=== PATIENT | female | born 1950 | race Caucasian/White ===

== ENCOUNTER 2016-06-23 23:32 | Emergency (ER) | payer OTHER ==
[~2016-06-23] VITALS: Ht 152.4 cm; Wt 108.9 kg
[~2016-06-23 23:32] MED LIST: /AMLO25TA PO; ASPI325T PO; CIPR500T89 PO; CLOP75TA2 PO; CORE25TA PO; CRES20TA PO; CRES40TA PO; FLAG500T PO; INSULANT SC; JANU25TA PO; LISIPOW PO; NIASPAN ER PO; NIASPAN PO; TYLE650T30 PO
[2016-06-23] MEDS ORDERED: INSUH10VL SC (23:47)
[2016-06-24] MEDS ORDERED: GI COCKTAIL 50ML BTL(HYOSCYAMINE/MAALOX/LIDOCAINE VISCOUS)(1:3:1) PO ONE
[2016-06-24] MEDS ORDERED: ASPIRIN 325 MG TAB PO ONE (00:30)
[2016-06-24 01:17] LABS: BASO % 0.5 % (0.0-1.0); EOS # 0.1 K/mm3 (0.0-0.50); EOS % 0.7 % (0.0-3.0); LARGE UNSTAINED CELL # 0.1 K/mm3 (0.0-0.4); LARGE UNSTAINED CELL % 1.2 % (0.0-4.0); LYMPH # 1.4 K/mm3 (1.5-4.5); LYMPH % 12.3 % (24.0-44.0); MEAN CORPUSCULAR HEMOGLOBIN 31.8 pg (27.0-33.0); MEAN CORPUSCULAR VOLUME 96.3 fl (80.0-96.0); MONO # 0.3 K/mm3 (0.0-0.8); MONO % 2.5 % (0.0-5.0); NEUTROPHILS # 9.6 K/mm3 (1.8-7.7); NEUTROPHILS % 82.8 % (36.0-66.0); PLATELET COUNT, AUTOMATED 232 k/mm3 (150-450); RED CELL DISTRIBUTION WIDTH 13.2 % (11.5-14.5); WHITE BLOOD COUNT 11.6 K/mm3 (4.0-10.0)
[2016-06-24 01:55] LABS: ALBUMIN 3.7 GM/DL (3.2-5.2); BILIRUBIN,TOTAL 0.7 MG/DL (0.2-1.0); CALCIUM LEVEL 8.9 MG/DL (8.8-10.2); CREATININE FOR GFR 1.13 MG/DL (0.55-1.02); GLOMERULAR FILTRATION RATE 51.8 (>45); POTASSIUM SERUM 4.9 MEQ/L (3.5-5.1); TOTAL PROTEIN 7.4 GM/DL (6.4-8.2)
[2016-06-24 01:59] LABS: BILIRUBIN,DIRECT 0.2 MG/DL (0.0-0.2)
[2016-06-24] MEDS ORDERED: HEPARIN DRIP 25,000 UNITS in APPROPRIATE DILUENT 1 EA IV SCH (02:01)
[2016-06-24] MEDS ORDERED: HumuLIN R (REGULAR) INSULIN (NovoLIN R) **100U/ML** PER UNIT IV ONE (02:15)
[2016-06-24] MEDS ORDERED: HEPARIN SOD (PORCINE) 5000 UNITS/ML VIAL IV ONE (02:15)
[2016-06-24 02:18] LABS: INR 0.88
[2016-06-24] MEDS ORDERED: hydrALAZINE INJ 20 MG/ML VIAL As Ordered ONE (03:07)
[2016-06-24 03:09] VITALS: BP 212/89
[2016-06-24 03:14] VITALS: BP 219/89
[2016-06-24] MEDS ORDERED: hydrALAZINE INJ 20 MG/ML VIAL IV ONE (03:15)
--- NOTE | 2016-06-24 03:27 | REP ---
Clinical: Chest and abdominal pain . Comparison: None . Findings: The mediastinum and cardiac silhouette are stable and within normal limits for portable technique. The lung ro are clear without acute consolidation, effusion, or pneumothorax. Few scattered calcified hilar lymph nodes are suggested likely reflecting prior granulomatous disease. Skeletal structures are intact. Impression: No acute cardiopulmonary process appreciated. Signed by Rome Doss MD 06/24/2016 03:19 A
--- NOTE | 2016-06-24 20:38 | ECGEPIP ---
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
== END 2016-06-24 03:28 | disposition short-term general hospital (02) ==
LOC: EDBD 23:32 → M ED 06-24 01:36
DX: I21.4 Non-ST elevation (NSTEMI) myocardial infarction (principal); E11.65 Type 2 diabetes mellitus with hyperglycemia; I10 Essential (primary) hypertension; Z95.5 Presence of coronary angioplasty implant and graft; Z95.820 Peripheral vascular angioplasty status with implants and grafts; Z79.82 Long term (current) use of aspirin; Z79.4 Long term (current) use of insulin; Z79.899 Other long term (current) drug therapy; Z88.0 Allergy status to penicillin

== ENCOUNTER 2016-06-30 13:23 | Emergency (ER) | payer OTHER ==
[~2016-06-30 13:23] MED LIST changes: +INSUH10VL SC
[2016-06-30 15:54] LABS: BASO # 0.1 K/mm3 (0.0-0.2); BASO % 0.6 % (0.0-1.0); EOS # 0.5 K/mm3 (0.0-0.50); LARGE UNSTAINED CELL # 0.3 K/mm3 (0.0-0.4); LARGE UNSTAINED CELL % 2.1 % (0.0-4.0); LYMPH # 3.3 K/mm3 (1.5-4.5); LYMPH % 24.9 % (24.0-44.0); MEAN CORPUSCULAR HEMOGLOBIN 32.8 pg (27.0-33.0); MEAN CORPUSCULAR HGB CONC 34.5 g/dl (32.0-36.5); MEAN CORPUSCULAR VOLUME 95.3 fl (80.0-96.0); MONO # 0.7 K/mm3 (0.0-0.8); NEUTROPHILS # 8.5 K/mm3 (1.8-7.7); NEUTROPHILS % 63.4 % (36.0-66.0); PLATELET COUNT, AUTOMATED 222 k/mm3 (150-450); WHITE BLOOD COUNT 13.4 K/mm3 (4.0-10.0)
[2016-06-30] MEDS ORDERED: DEXTROSE 50% 50 ML SYRINGE IV STA (16:11)
[2016-06-30] MEDS ORDERED: DEXTROSE 50% 50 ML SYRINGE As Ordered ONE (16:13)
[2016-06-30 16:20] LABS: CALCIUM LEVEL 8.8 MG/DL (8.8-10.2); CREATININE FOR GFR 1.18 MG/DL (0.55-1.02); GLOMERULAR FILTRATION RATE 49.2 (>45); POTASSIUM SERUM 3.8 MEQ/L (3.5-5.1)
--- NOTE | 2016-06-30 18:20 | REPUSA ---
Clinical history: Congestion. Comparison: None. Findings: The mediastinum and cardiac silhouette are within normal limits. The lungs are clear. No pl eural effusion or pneumothorax is seen. The osseous structures and soft tissues are unremarkable. Impression: No acute disease.
[2016-06-30] MEDS ORDERED: HEPARIN DRIP 25,000 UNITS in APPROPRIATE DILUENT 1 EA IV SCH (19:11)
[2016-06-30] MEDS ORDERED: HEPARIN SOD (PORCINE) 5000 UNITS/ML VIAL IV ONE (19:15)
[2016-06-30 21:24] VITALS: BP 174/82
--- NOTE | 2016-07-01 06:17 | ECGEPIP ---
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
== END 2016-06-30 21:33 | disposition short-term general hospital (02) ==
LOC: EDBD 13:23 → M ED 14:38
DX: I21.3 ST elevation (STEMI) myocardial infarction of unspecified site (principal); I20.0 Unstable angina; I25.10 Atherosclerotic heart disease of native coronary artery without angina pectoris; E11.9 Type 2 diabetes mellitus without complications; I10 Essential (primary) hypertension; N18.9 Chronic kidney disease, unspecified; Z95.5 Presence of coronary angioplasty implant and graft; F17.200 Nicotine dependence, unspecified, uncomplicated; Z79.4 Long term (current) use of insulin; Z79.82 Long term (current) use of aspirin; Z79.899 Other long term (current) drug therapy; Z88.0 Allergy status to penicillin

== ENCOUNTER → 2017-12-05 | Outpatient (CLI) | payer MEDICARE, MEDICAID | LOC: M PLARAD 07:37 | DX: M54.5 Low back pain (principal) ==

== ENCOUNTER → 2017-12-29 | Outpatient (CLI) | payer MEDICARE | LOC: M RAD 08:49 | DX: M51.26 Other intervertebral disc displacement, lumbar region (principal); M48.061 Spinal stenosis, lumbar region without neurogenic claudication | CPT/HCPCS: 72131 ==

== ENCOUNTER → 2019-03-01 | Outpatient (CLI) | payer MEDICARE ==
[~2019-03-01] MED LIST changes: -/AMLO25TA PO; +NORV2TAB PO
--- NOTE | 2019-03-01 09:36 | REP ---
Clinical: Chronic medical renal disease stage 4. Technique: Akbar scale evaluation of the kidneys using curved array transducer. Findings: The kidneys are essentially normal in contour size and echogenicity and reniform shape without hydronephrosis, nephrolithiasis, significant cystic or renal mass lesion. Right kidney measures 8.8 x 4.2 x 4.2 cm with 6 mm lower pole cyst. Left kidney measures 10.1 x 3.6 x 4.2 cm. Bladder is unremarkable and bilateral ureteral jets are identified. Impression: Essentially normal renal ultrasound. Electronically Signed by Rome Doss MD 03/01/2019 09:27 A
== END ==
LOC: M RAD 08:46
PROVIDERS: ATTEND Physician Assistant
DX: N18.4 Chronic kidney disease, stage 4 (severe) (principal)

== ENCOUNTER → 2019-03-09 | Outpatient (REF) | payer MEDICARE ==
[2019-03-09 18:39] LABS: URINE TOTAL PROTEIN 129.2 MG/DL (0-12)
[2019-03-09 19:18] LABS: ALBUMIN 3.4 GM/DL (3.2-5.2); BLOOD UREA NITROGEN 29 MG/DL (7-18); CARBON DIOXIDE LEVEL 26 MEQ/L (21-32); CHLORIDE LEVEL 98 MEQ/L (98-107); COMPLEMENT C3 138 MG/DL (90-180); COMPLEMENT C4 26 MG/DL (10-40); CREATININE FOR GFR 1.86 MG/DL (0.55-1.30); GLOMERULAR FILTRATION RATE 28.9 (>45); GLUCOSE, FASTING 558 MG/DL (70-100); MAGNESIUM LEVEL 2.1 MG/DL (1.8-2.4); PHOSPHORUS LEVEL 3.3 MG/DL (2.5-4.9); POTASSIUM SERUM 4.5 MEQ/L (3.5-5.1); SODIUM LEVEL 132 MEQ/L (136-145); TOTAL PROTEIN 6.9 GM/DL (6.4-8.2); URIC ACID 5.6 MG/DL (2.6-6.0)
[2019-03-10 13:59] LABS: HEPATITIS B SURFACE ANTIBODY NEGATIVE (POSITIVE)
[2019-03-10 14:10] LABS: HEPATITIS B SURFACE ANTIGEN NEGATIVE (NEGATIVE)
[2019-03-10 14:38] LABS: HEPATITIS B CORE ANTIBODY IGM NEGATIVE (NEGATIVE); HEPATITIS C VIRUS ABY INDEX < 0.0 INDEX (<0.8)
[2019-03-11 10:23] LABS: ALBUMIN 3.91 GM/DL (3.29-5.55); ALBUMIN % 56.6 % (55.8-66.1); ALPHA-1-GLOBULINS 0.28 GM/DL (0.17-0.41); ALPHA-2-GLOBULINS % 11.6 % (7.1-11.8); BETA-1-GLOBULINS 0.43 GM/DL (0.28-0.60); BETA-1-GLOBULINS % 6.3 % (4.7-7.2); BETA-2-GLOBULINS 0.38 GM/DL (0.19-0.55); BETA-2-GLOBULINS % 5.5 % (3.2-6.5)
[2019-03-11 11:37] LABS: UPEP INTERPRETATION NO M-SPIKE NOTED; URINE VOLUME RANDOM ML
[2019-03-13 00:08] LABS: ANCA-ATYPICAL <1:20 titer (Neg:<1:20); ANTI DS-DNA AB Negative (Negative); ANTINUCLEAR ANTIBODIES DIRECT Negative (Negative); CYTOPLASMIC NEUTROP AB ANCA-C <1:20 titer (Neg:<1:20); FREE KAPPA LIGHT CHAINS SERUM 64.5 mg/L (3.3-19.4); FREE LAMBDA LIGHT CHAINS SERUM 51.8 mg/L (5.7-26.3); KAPPA/LAMBDA RATIO SERUM 1.25 (0.26-1.65); PERINUCLEAR AB ANCA-P <1:20 titer (Neg:<1:20)
== END ==
LOC: M LAB REF 17:20
PROVIDERS: ATTEND Internal Medicine Nephrology
DX: N18.3 Chronic kidney disease, stage 3 (moderate) (principal); E11.22 Type 2 diabetes mellitus with diabetic chronic kidney disease; I12.9 Hypertensive chronic kidney disease with stage 1 through stage 4 chronic kidney disease, or unspecified chronic kidney disease; R80.9 Proteinuria, unspecified

== ENCOUNTER 2019-03-21 06:39 | Inpatient (IN) | payer MEDICAID, MEDICARE ==
[~2019-03-21] VITALS: Ht 160 cm; Wt 92.2 kg
--- NOTE | 2019-03-21 08:11 | REP ---
Right knee series: Five views. History: Trauma. Findings: Five views of the right knee demonstrate diffuse osteopenia. There is an arterial vascular stent in the distribution of the superficial femoral artery. Vascular calcification is seen in the popliteal and proximal calf soft tissues. There is no evidence of fracture or subluxation. There is no sunrise view obtained. Impression: Diffuse osteopenia. Vascular calcification and arterial stent in place in the distal thigh. No acute bony abnormalities seen. Electronically Signed by Phil Smith MD 03/21/2019 08:03 A
--- NOTE | 2019-03-21 08:12 | REP ---
Pelvis right hip: Three views. History: Trauma. Findings: AP view of the pelvis shows an intact bony pelvic ring. There is advanced osteoarthritis of the right hip with joint space narrowing and subcortical cyst formation. Spurring is seen. There is no evidence of pelvic or right hip fracture. There is an arterial stent in the distribution of the mid and distal superficial femoral artery on the right and the proximal superficial femoral artery on the left. No sacral or pelvic fracture is seen. Impression: No fracture noted. Electronically Signed by Phil Smith MD 03/21/2019 08:04 A
--- NOTE | 2019-03-21 08:16 | REPVR ---
PROCEDURE INFORMATION: Exam: CT Cervical Spine Without Contrast Exam date and time: 03/21/2019 7:41 AM Age: 68 years old Clinical indication: Injury or trauma; Fall; Initial encounter; Blunt trauma TECHNIQUE: Imaging protocol: Computed tomography images of the cervical spine without contrast. Radiation optimization: All CT scans at this facility use at least one of these dose optimization techniques: automated exposure control; mA and/or kV adjustment per patient size (includes targeted exams where dose is matched to clinical indication); or iterative reconstruction. COMPARISON: No relevant prior studies available. FINDINGS: Vertebrae: No acute fracture. Normal alignment. Discs/Spinal canal/Neural foramina: Disc bulges at C2/C3 and C3/C4 causing mild indentation on thecal sac. Soft tissues: Multiple surgical clips adjacent to the left common carotid artery and left internal carotid artery. Lungs: Lung apices are normal. Thyroid gland: 10 mm nodule in right lobe of the thyroid gland, further evaluation with ultrasound is recommended. IMPRESSION: No acute findings. Electronically signed by: Abigail Liu On 03/21/2019 08:15:46 AM
--- NOTE | 2019-03-21 08:22 | REPVR ---
PROCEDURE INFORMATION: Exam: CT Head Without Contrast Exam date and time: 03/21/2019 7:41 AM Age: 68 years old Clinical indication: Injury or trauma; Fall; Initial encounter; Blunt trauma (contusions or hematomas); Consciousness not specified TECHNIQUE: Imaging protocol: Computed tomography of the head without contrast. Radiation optimization: All CT scans at this facility use at least one of these dose optimization techniques: automated exposure control; mA and/or kV adjustment per patient size (includes targeted exams where dose is matched to clinical indication); or iterative reconstruction. COMPARISON: No relevant prior studies available. FINDINGS: Brain: There is no acute intracranial abnormality. Mild prominence of ventricles and sulci representing volume loss. Moderate small vessel ischemic changes are seen. There is no mass, midline shift, or mass effect. Akbar-white matter differentiation is preserved. There is no evidence of hemorrhage. There is no extra-axial fluid collection. Basal cisterns are patent. Ventricles: See Brain Finding. Bones/joints: Unremarkable. No acute fracture. Sinuses: Visualized sinuses are unremarkable. No fluid levels. Mastoid air cells: Visualized mastoid air cells are well aerated. Soft tissues: Mild left lateral inferior frontal and periorbital soft tissue swelling. IMPRESSION: 1. Mild volume loss and moderate small vessel ischemic changes. 2. No acute intracranial abnormality. Electronically signed by: Abigail Liu On 03/21/2019 08:22:06 AM
--- NOTE | 2019-03-21 08:24 | REPVR ---
PROCEDURE INFORMATION: Exam: CT Maxillofacial Without Contrast Exam date and time: 03/21/2019 7:41 AM Age: 68 years old Clinical indication: Injury or trauma; Fall; Initial encounter; Blunt trauma (contusions or hematomas); Cheek bone; Not specified TECHNIQUE: Imaging protocol: Computed tomography images of the face without contrast. Radiation optimization: All CT scans at this facility use at least one of these dose optimization techniques: automated exposure control; mA and/or kV adjustment per patient size (includes targeted exams where dose is matched to clinical indication); or iterative reconstruction. COMPARISON: No relevant prior studies available. FINDINGS: Orbits: Orbits are normal. Globes are unremarkable. Sinuses: Normal. No air-fluid levels. Bones/joints: No acute fracture. Soft tissues: Mild left inferior lateral frontal and periorbital soft tissue swelling. IMPRESSION: No acute fracture or dislocation. Mild left inferior lateral frontal and periorbital soft tissue swelling. Electronically signed by: Abigail Liu On 03/21/2019 08:24:14 AM
[2019-03-21] MEDS ORDERED: ONDANSETRON 4MG/2ML VIAL (J2405) As Ordered ONE (08:28)
[2019-03-21] MEDS ORDERED: MORPHINE 2 MG/ML 1ML VIAL (J2270) As Ordered ONE (08:29)
[2019-03-21] MEDS ORDERED: ONDANSETRON 4MG/2ML VIAL (J2405) IV ONE (08:30)
[2019-03-21] MEDS: MORPHINE 2 MG/ML 1ML VIAL (J2270) IV PRN ×2 (08:38→13:03)
[2019-03-21] MEDS ORDERED: COMMENTS (09:32)
[2019-03-21] MEDS ORDERED: LOSA50TA88 PO (09:32)
[2019-03-21] MEDS ORDERED: EZET10TA21 PO (09:32)
[2019-03-21] MEDS ORDERED: BRIL1TAB PO (09:32)
[2019-03-21] MEDS ORDERED: CARV25TA PO (09:32)
[2019-03-21] MEDS ORDERED: AMLO5TAB6 PO (09:32)
[2019-03-21] MEDS ORDERED: LOSARTAN 50 MG TAB PO ONE ×2 (09:45→10:00)
[2019-03-21] MEDS ORDERED: amLODIPine 5 MG TAB PO ONE ×2 (09:45→10:00)
[2019-03-21] MEDS ORDERED: CARVedilol 12.5 MG TAB PO ONE ×2 (09:45→10:00)
--- NOTE | 2019-03-21 09:45 | REP ---
CT RIGHT HIP WITHOUT CONTRAST: HISTORY: Inability to ambulate after trauma. Comparison is made with today's radiographs. FINDINGS: There is no evidence of fracture of the right iliac bone or ischium. The visualized sacrum appears intact. There is advanced right hip osteoarthropathy with obliteration of the joint space superiorly, extensive subcortical cyst formation and sclerosis on both sides of the joint, and well-established femoral and acetabular osteophytes. There is no evidence of proximal femur fracture. Vascular calcification is noted. No soft tissue mass or hematoma is appreciated. IMPRESSION: Severe right hip osteoarthritis. No traumatic bony abnormality. Electronically Signed by Phil Smith MD 03/21/2019 09:56 A
[2019-03-21] MEDS ORDERED: METOCLOPRAMIDE INJ 10MG/2ML VIAL (J2765) IV ONE (10:00)
[2019-03-21 10:05] LABS: BASO # 0.1 10^3/uL (0.0-0.2); BASO % 0.5 % (0.0-1.0); EOS # 0.1 10^3/uL (0.0-0.5); EOS % 0.9 % (0.0-3.0); HEMATOCRIT 43.8 % (36.0-47.0); HEMOGLOBIN 14.6 g/dl (12.0-15.5); LYMPH % 12.9 % (24.0-44.0); MEAN CORPUSCULAR HEMOGLOBIN 29.7 pg (27.0-33.0); MEAN CORPUSCULAR HGB CONC 33.3 g/dl (32.0-36.5); MONO # 1.1 10^3/uL (0.0-0.8); MONO % 7.5 % (0.0-5.0); NEUTROPHILS # 11.8 10^3/uL (1.5-8.5); NEUTROPHILS % 77.7 % (36.0-66.0); PLATELET COUNT, AUTOMATED 241 10^3/uL (150-450); RED BLOOD COUNT 4.92 10^6/uL (4.00-5.40); WHITE BLOOD COUNT 15.1 10^3/uL (4.0-10.0)
[2019-03-21 10:48] LABS: ALBUMIN 3.6 GM/DL (3.2-5.2); BILIRUBIN,DIRECT 0.2 MG/DL (0.0-0.2); BILIRUBIN,TOTAL 0.6 MG/DL (0.2-1.0); CALCIUM LEVEL 8.9 MG/DL (8.8-10.2); CK-MB VALUE MASS 2.6 NG/ML (<3.6); CREATININE FOR GFR 1.7 MG/DL (0.55-1.30); MB/CK RELATIVE INDEX 1.91 (< OR =4); POTASSIUM SERUM 3.9 MEQ/L (3.5-5.1); THYROID STIMULATING HORMONE 0.725 uIU/ML (0.358-3.740); TOTAL PROTEIN 7.1 GM/DL (6.4-8.2); TROPONIN I 0.05 NG/ML (< 0.10)
--- NOTE | 2019-03-21 10:54 | REP ---
Portable chest x-ray: Single view. History: Altered mental status. Comparison study: June 30, 2016. Findings: The patient is rotated to the right for the current exposure. Monitoring electrodes are seen. Vascular calcifications noted in the aorta. The heart is not felt to be enlarged. No focal infiltrate is seen. Pleural angles are sharp. There are surgical clips in the soft tissues of the neck on the left side. Impression: No acute disease. Patient is rotated to the right. Electronically Signed by Phil Smith MD 03/21/2019 10:46 A
[2019-03-21] MEDS ORDERED: ATOR40TA75 PO (11:06)
[2019-03-21 11:19] LABS: HEMOGLOBIN A1c 13.3 %
[2019-03-21] MEDS ORDERED: LABETALOL HCL 100 MG/20 ML VIAL IV PRN (12:00)
[2019-03-21] MEDS ORDERED: MORPHINE 2 MG/ML 1ML VIAL (J2270) IV PRN ×2 (12:00)
--- NOTE | 2019-03-21 12:07 | HPEPDOC ---
[facility] Medical History & Physical Date of Admission Mar 21, 2019 Date of Service: Mar 21, 2019 History and Physical CHIEF COMPLAINT: Fall HISTORY OF PRESENT ILLNESS: Patient is 68F with PMH CAD s/p stents placement, PVD s/p stents in b/l LE, HTN, HLD, IDDM, L. carotid artery stenosis s/p CEA brought in by EMS after falling at home. Patient lives alone and last seen daughter at home yesterday morning and have been doing fine until 2:30AM when she called her daughter stating that she fell at home. EMS reportedly arrived and got her situated but then she fell again and was brought into the ER. Patient reportedly mentation is not at her baseline however was oriented to person and place but thought the year is 2019. Patient was found to have a large bruise over superiolateral aspect of her L. eyelid. Patient complains of feeling sick to her stomach and nauseous but otherwise does not report any pain, headache, visual changes, fever, chills, neck stiffness or any other complaints. Patient appears comfortable and speak little, most history obtained from daughter and [id number] at bedside. Patient reportedly has a walker, cane and wheelchair but gets around the home hanging onto things and does not use walking devices. PAST MEDICAL HISTORY: Refer to [facility] PAST SURGICAL HISTORY: Cardiac stent placement Bilateral lower extremity stent placement for PVD Left carotid endarterectomy Cholecystectomy Appendectomy Tubal ligation SOCIAL HISTORY: Smokes 1/2ppd. Does not report alcohol or illicit drug use. FAMILY HISTORY: Daughter- HLD Parents - no medical history known ALLERGIES: Please see below. REVIEW OF SYSTEMS: 10 point review of system negative except as stated in HPI HOME MEDICATIONS: Please see below. PHYSICAL EXAMINATION: General: Moderate distress with eyes closed most of the time, hanging onto the vomitus bag Eyes: Normal sclera, EOMI, L. superiorlateral aspect of eyelid bruised HENT: Bruising to L. eyelid Cardiovascular: Normal rate Pulmonary: Clear to auscultation b/l GI: Soft, nontender Skin: Warm and dry Neuro: CN grossly intact. Generalized weakness but moves all extremities. Psych: oriented to person and place, thought year is 2018 LABORATORY DATA: See below. IMAGING: CT head-1. Mild volume loss and moderate small vessel ischemic changes. 2. No acute intracranial abnormality. Maxilofacial CT- No acute fracture or dislocation. Mild left inferior lateral frontal and periorbital soft tissue swelling. Cervical Spine CT-No acute findings. Extremity CT-Severe right hip osteoarthritis. No traumatic bony abnormality. Hip/Pelvis XR-No fracture noted. CXR- No acute disease. Patient is rotated to the right. MICROBIOLOGY: Please see below. ASSESSMENT AND PLAN: 1. Fall - No fracture noted on imaging, soft tissue swelling L. orbit. - No hemorrhage on CT head. - Patient at baseline has gait instability, has walker/cane/wheelchair but does not use at home. - Will require PT/OT. 2. AMS - Does not appear to be much different from likely baseline when patient talks. - Alert and oriented to person, place and wrong year 2018. - WBC 15 but no notable source of infection at this time. - No nuchal rigidity. Negative Brudzinski sign. - Will monitor. Consider repeat CT head if symptoms do not improve or worsens. 3. Nausea - Zofran PRN. No evidence of bleed on CT head. - Monitor and consider repeating imaging at later time if does not improve. 4. DM - BS uncontrolled. Reportedly supposed to use insulin in the past but refuse to because she doesn't like the way it makes her feel. - Start on levemir and ISS with ACHS fs. 5. CAD - resume home meds. - No chest pain, troponin negative. 6. PVD - c/w home meds. 7. HTN - resume home med 8. HLD - c/w atorvastatin. DVT ppx: Lovenox and SCD Code status: Full code Dispo: Pending PT/OT. Vital Signs Vital Signs Date Time Temp Pulse Resp B/P (MAP) Pulse Ox O2 Delivery O2 Flow Rate FiO2 03/21/19 11:31 68 18 179/77 (111) 94 Room Air 03/21/19 09:57 97.5 Laboratory Data Labs 24H Laboratory Tests 2 03/21/19 08:23: Urine Color YELLOW, Urine Appearance CLOUDYH, Urine pH 6.0, Urine Specific [place] 1.015, Urine Protein 2+H, Urine Glucose (UA) 3+H, Urine Ketones NEGATIV E, Urine Blood 1+H, Urine Nitrite NEGATIVE, Urine Bilirubin NEGATIVE, Urine Urobilinogen 0.2, Urine Leukocyte Esterase NEGATIVE, Urine WBC (Auto) 7H, Urine RBC (Auto) 3, Urine Hyaline Casts (Auto) 0, Urine Bacteria (Auto) NEGATIVE, Urine Squamous Epithelial Cells 2, Urine Amorphous Sediment SMALLH, Urine Sperm (Auto) 03/21/19 09:52: Immature Granulocyte % (Auto) 0.5, Neutrophils (%) (Auto) 77.7H, Lymphocytes (%) (Auto) 12.9L, Monocytes (%) (Auto) 7.5H, Eosinophils (%) (Auto) 0.9, Basophils (%) (Auto) 0.5, Neutrophils # (Auto) 11.8H, Lymphocytes # (Auto) 2.0, Monocytes # (Auto) 1.1H, Eosinophils # (Auto) 0.1, Basophils # (Auto) 0.1, Nucleated Red Blood Cells % (auto) 0.0, Anion Gap 6L, Glomerular Filtration Rate 32.0L, Estimated Mean Plasma Glucose 335H, Hemoglobin A1c 13.3, Calcium Level 8.9, Total Bilirubin 0.6, Direct Bilirubin 0.2, Aspartate Amino Transf (AST/SGOT) 24, Alanine Aminotransferase (ALT/SGPT) 38, Alkaline Phosphatase 301H, Ammonia 11, Total Creatine Kinase 136, Creatine Kinase MB 2.6, Creatine Kinase MB Relative Index 1.91, Troponin I 0.05, Total Protein 7.1, Albumin 3.6, Albumin/Globulin Ratio 1.03, Thyroid Stimulating Hormone (TSH) 0.725 03/21/19 09:53: Lactic Acid Level 1.0 03/21/19 10:13: Bedside Glucose (Misc Panel) 440H CBC/BMP Laboratory Tests 03/21/19 09:52 Microbiology Microbiology 03/21/19 Respiratory Virus Panel (PCR) (ROSETTE) - Final, Complete 03/21/19 Blood Culture, Received Pending 03/21/19 Blood Culture, Received Pending Home Medications Scheduled Amlodipine Besylate (Amlodipine Besylate) 5 Mg Tablet, 5 MG PO DAILY Atorvastatin Calcium (Atorvastatin Calcium) 40 Mg Tablet, 40 MG PO DAILY Carvedilol (Carvedilol) 25 Mg Tablet, 25 MG PO BID Ezetimibe (Ezetimibe) 10 Mg Tablet, 10 MG PO DAILY Losartan Potassium (Losartan Potassium) 50 Mg Tablet, 50 MG PO DAILY Ticagrelor (Brilinta) 60 Mg Tablet, 60 MG PO BID Miscellaneous Medications [Comments] MED REC MADE WITH EXTERNAL MED HISTORY Allergies Coded Allergies: Penicillins (Verified Allergy, Unknown, UNKNOWN , 03/21/19) A-FIB/CHADSVASC A-FIB History Current/History of A-Fib/PAF?: No SKIP ROSENBAUM MD Mar 21, 2019 12:07
[2019-03-21] MEDS ORDERED: GLUCOSE 4 GM CHEW TABLET PO PRN (12:15)
[2019-03-21] MEDS ORDERED: GLUCAGON FOR INJ 1 MG VIAL (J1610) SC PRN (12:15)
[2019-03-21] MEDS ORDERED: DEXTROSE 50% 50 ML SYRINGE IV PRN (12:15)
[2019-03-21] MEDS: LEVEMIR (INSULIN DETEMIR) 1 UNITS/0.01ML SC SCH (13:02)
[2019-03-21] MEDS: ENOXAPARIN 40 MG/0.4 ML SYRINGE (J1650) SC SCH (13:14)
[2019-03-21] MEDS: NS 1,000 ML IV SCH ×2 (13:16→23:47)
[2019-03-21 16:17] VITALS: BP 132/97
[2019-03-21] MEDS: HumaLOG INSULIN (NovoLOG) PER UNIT SC SCH ×2 (17:30→21:00)
[2019-03-21] MEDS ORDERED: TICAGRELOR 90 MG TABLET (BRILINTA) PO SCH (21:00)
[2019-03-21] MEDS ORDERED: TICAGRELOR 60 MG PO SCH (21:00)
[2019-03-21] MEDS: ACETAMINOPHEN TAB 650MG DOSE (2X325MG) PO PRN (21:26)
[2019-03-21] MEDS: ONDANSETRON 4MG/2ML VIAL (J2405) IV PRN (21:26)
[2019-03-21] MEDS: CARVedilol 12.5 MG TAB PO SCH (21:30)
[2019-03-22] VITALS: BP 168/72
[2019-03-22 04:00] VITALS: BP 135/61
[2019-03-22 05:02] LABS: HEMATOCRIT 41.9 % (36.0-47.0); HEMOGLOBIN 13.6 g/dl (12.0-15.5); MEAN CORPUSCULAR HEMOGLOBIN 29.9 pg (27.0-33.0); MEAN CORPUSCULAR HGB CONC 32.5 g/dl (32.0-36.5); MEAN CORPUSCULAR VOLUME 92.1 fl (80.0-96.0); PLATELET COUNT, AUTOMATED 233 10^3/uL (150-450); RED BLOOD COUNT 4.55 10^6/uL (4.00-5.40); WHITE BLOOD COUNT 12.7 10^3/uL (4.0-10.0)
[2019-03-22 05:25] LABS: CREATININE FOR GFR 1.88 MG/DL (0.55-1.30)
[2019-03-22 05:26] LABS: CALCIUM LEVEL 8.7 MG/DL (8.8-10.2); GLOMERULAR FILTRATION RATE 28.5 (>45); POTASSIUM SERUM 3.7 MEQ/L (3.5-5.1)
[2019-03-22 08:00] VITALS: BP 156/68
[2019-03-22] MEDS: ENOXAPARIN 40 MG/0.4 ML SYRINGE (J1650) SC SCH (08:29)
[2019-03-22] MEDS: HumaLOG INSULIN (NovoLOG) PER UNIT SC SCH ×4 (08:30→20:28)
[2019-03-22] MEDS: LEVEMIR (INSULIN DETEMIR) 1 UNITS/0.01ML SC SCH (08:30)
[2019-03-22] MEDS: amLODIPine 5 MG TAB PO SCH (08:31)
[2019-03-22] MEDS: CARVedilol 12.5 MG TAB PO SCH ×2 (08:31→20:33)
[2019-03-22] MEDS: ATORVASTATIN 20 MG TAB PO SCH (08:31)
[2019-03-22] MEDS: EZETIMIBE 10 MG TAB (ZETIA) PO SCH (08:31)
[2019-03-22] MEDS: LOSARTAN 50 MG TAB PO SCH (08:31)
[2019-03-22] MEDS: ONDANSETRON 4MG/2ML VIAL (J2405) IV PRN (10:16)
[2019-03-22 12:00] VITALS: BP 142/82
[2019-03-22] MEDS: NS 1,000 ML IV SCH ×2 (12:43→20:29)
--- NOTE | 2019-03-22 14:42 | IPNPDOC ---
Date Seen The patient was seen on 03/22/19. Progress Note SUBJECTIVE: Patient still complaints of headaches but appear much more alert than yesterday and much less discomfort. She is AAO x3 and joke quite a bit. Afebrile overnight. WBC 15->12. Cr 1.8 OBJECTIVE PHYSICAL EXAMINATION: General: No acute distress. Eyes: Normal sclera, EOMI, L. eye bruised, no pain with extraocular movements HENT: Bruising to L. eyelid Cardiovascular: Normal rate Pulmonary: Clear to auscultation b/l GI: Soft, nontender Skin: Warm and dry Neuro: CN grossly intact. Moving all extremities. Psych: AAO x3 LABORATORY DATA: See below. IMAGING: CT head-1. Mild volume loss and moderate small vessel ischemic changes. 2. No acute intracranial abnormality. Maxilofacial CT- No acute fracture or dislocation. Mild left inferior lateral frontal and periorbital soft tissue swelling. Cervical Spine CT-No acute findings. Extremity CT-Severe right hip osteoarthritis. No traumatic bony abnormality. Hip/Pelvis XR-No fracture noted. CXR- No acute disease. Patient is rotated to the right. MICROBIOLOGY: Please see below. ASSESSMENT AND PLAN: 1. Fall - No fracture noted on imaging, soft tissue swelling L. orbit. - No hemorrhage on CT head. - Patient at baseline has gait instability, has walker/cane/wheelchair but does not use at home. - PT/OT. 2. AMS - Likely had returned to baseline. AAO x3. No focal deficits. - WBC 15 but no notable source of infection at this time. - No nuchal rigidity. Negative Brudzinski sign. 3. Nausea - Zofran PRN. No evidence of bleed on CT head. - Monitor and consider repeating imaging at later time if does not improve. 4. DM - BS uncontrolled. Reportedly supposed to use insulin in the past but refuse to because she doesn't like the way it makes her feel. - Start on levemir and ISS with ACHS fs. 5. CAD - resume home meds. - No chest pain, troponin negative. 6. PVD - c/w home meds. 7. HTN - resume home med 8. HLD - c/w atorvastatin. DVT ppx: Lovenox and SCD Code status: Full code Dispo: Pending PT/OT. VS, I&O, 24H, Sd Vital Signs/I&O Vital Signs Date Time Temp Pulse Resp B/P (MAP) Pulse Ox O2 Delivery O2 Flow Rate FiO2 03/22/19 12:00 97.5 61 16 142/82 (102) 96 Room Air I&O- Last 24 Hours up to 6 AM 03/22/19 06:00 Intake Total 1516 ml Output Total 850 ml Balance 666 ml Laboratory Data 24H LABS Laboratory Tests 2 03/21/19 17:37: Bedside Glucose (Misc Panel) 284H 03/21/19 21:15: Bedside Glucose (Misc Panel) 209H 03/22/19 04:40: Nucleated Red Blood Cells % (auto) 0.0, Anion Gap 8, Glomerular Filtration Rate 28.5L, Calcium Level 8.7L 03/22/19 11:51: Bedside Glucose (Misc Panel) 211H CBC/BMP Laboratory Tests 03/22/19 04:40 Microbiology Microbiology 03/21/19 Respiratory Virus Panel (PCR) (ROSETTE) - Final, Complete 03/21/19 Blood Culture - Preliminary, Resulted No growth after 24 hours . All specim... 03/21/19 Blood Culture - Preliminary, Resulted No growth after 24 hours . All specim... SKIP ROSENBAUM MD Mar 22, 2019 14:42
[2019-03-22 16:00] VITALS: BP 126/72
[2019-03-22 20:00] VITALS: BP 160/80
[2019-03-23] MEDS: NS 1,000 ML IV SCH (03:36)
[2019-03-23 04:00] VITALS: BP 160/62
[2019-03-23 05:27] LABS: HEMATOCRIT 34.9 % (36.0-47.0); HEMOGLOBIN 11.7 g/dl (12.0-15.5); MEAN CORPUSCULAR HGB CONC 33.5 g/dl (32.0-36.5); MEAN CORPUSCULAR VOLUME 92.6 fl (80.0-96.0); PLATELET COUNT, AUTOMATED 169 10^3/uL (150-450); RED BLOOD COUNT 3.77 10^6/uL (4.00-5.40); WHITE BLOOD COUNT 8.7 10^3/uL (4.0-10.0)
[2019-03-23 05:56] LABS: CALCIUM LEVEL 7.9 MG/DL (8.8-10.2); CREATININE FOR GFR 1.69 MG/DL (0.55-1.30); GLOMERULAR FILTRATION RATE 32.2 (>45)
--- NOTE | 2019-03-23 05:57 | ECGEPIP ---
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
[2019-03-23 08:00] VITALS: BP 142/75
[2019-03-23] MEDS: ENOXAPARIN 40 MG/0.4 ML SYRINGE (J1650) SC SCH (08:16)
[2019-03-23] MEDS: LEVEMIR (INSULIN DETEMIR) 1 UNITS/0.01ML SC SCH (08:16)
[2019-03-23] MEDS: amLODIPine 5 MG TAB PO SCH (08:17)
[2019-03-23] MEDS: ATORVASTATIN 20 MG TAB PO SCH (08:17)
[2019-03-23] MEDS: EZETIMIBE 10 MG TAB (ZETIA) PO SCH (08:17)
[2019-03-23] MEDS: HumaLOG INSULIN (NovoLOG) PER UNIT SC SCH ×4 (08:17→21:00)
[2019-03-23] MEDS: CARVedilol 12.5 MG TAB PO SCH ×2 (08:17→21:56)
[2019-03-23] MEDS: LOSARTAN 50 MG TAB PO SCH (08:18)
[2019-03-23 12:00] VITALS: BP 143/64
[2019-03-23] MEDS ORDERED: SLF 3 ML SYR IV PRN (15:15)
[2019-03-23 15:47] VITALS: BP 137/96
--- NOTE | 2019-03-23 16:52 | IPNPDOC ---
Text Note Date of Service The patient was seen on 03/23/19. NOTE TIME OF SERVICE 148PM Ms. Astudillo is 68 old yr old female the past medical history of CAD with stents PVD, but stents, hypertension, IDDM, and history of CVA who was admitted for evaluation of altered mental status and a fall. SUBJECTIVE: There are no acute overnight events, the patient denies having a headache that she is asking when she can go home. OBJECTIVE: GEN: well-nourished / well developed INTEGUMENT: She has left sided periorbital ecchymosis HEENT: NCAT / lips acyanotic /mucus membranes moist and pink CVS: RRR/NMRG LUNGS: lungs are clear to auscultation bilaterally on room air NEURO: CN 2-12 are grossly intact / speech is not dysarthric PSYCH: alert and oriented to person place and time ( she said it was March 22)/ able to understand and follow all commands ASSESSMENT & PLAN: 1. Fall. Cause unclear. CT of the head was unremarkable Plan: Follow-up with PT, OT for disposition plans 2. Altered mental status. - Resolved? Workup unremarkable so far. Plan: Continue to monitor. 3. Normocytic normochromic anemia. Her hemoglobin has dropped over the last few days. Plan: Follow-up iron studies and stool occult 4. Uncontrolled diabetes. A1c is 13.3 Plan: diabetic diet / f/u accuchecks / hypoglycemia protocol / sliding scale insulin / increase Levemir to 22 units 5. Chronic CAD / chronic PVD / dyslipidemia Plan: Continue home meds 6. Chronic hypertension. Plan: Continue home meds 7. Nausea - resolved Plan: Zofran when necessary DVT PX Lovenox DISPO home versus placement pending PT/ OT recs VS,Fishbone, I+O VS, Fishbone, I+O Laboratory Tests 03/23/19 04:52 Vital Signs Date Time Temp Pulse Resp B/P (MAP) Pulse Ox O2 Delivery O2 Flow Rate FiO2 03/23/19 15:47 98.5 60 18 137/96 (110) 97 Room Air I&O- Last 24 Hours up to 6 AM 03/23/19 06:00 Intake Total 1220 ml Output Total 900 ml Balance 320 ml CONRAD MCNAIR MD Mar 23, 2019 16:52
--- NOTE | 2019-03-23 17:40 | IPN ---
DATE: 03/23/2019 Patient is able to speak adequately and appropriately this morning. She is awake, alert, oriented to herself, disoriented to date. Said that it is 03/22/2009. Otherwise answering questions appropriately. No complaints of neck stiffness, rigidity. Denies any changes in vision, headaches, chest pain, pressure, or tightness, shortness of breath, palpitations, nausea, vomiting, diarrhea, abdominal pain, dysuria, urgency, frequency, generalized weakness. Says that she has been ambulating well. Daughter is worried that the patient lives alone. May have recurrent falls at home. Awaiting physical therapy (PT) recommendations. VITAL SIGNS: Temperature 97, pulse 53, respiratory rate 18, blood pressure 143/64, 100% on room air. GENERAL: Patient has a left eye ecchymosis. Extraocular muscles are intact. Clear sclerae. LUNGS: Clear to auscultation. No wheezes, rales, or rhonchi. HEART: S1, S2, sinus rhythm. No murmurs, rubs, or gallops. ABDOMEN: Soft, nontender, nondistended. Positive bowel sounds times four quadrants. EXTREMITIES: No clubbing, cyanosis, or pitting edema. NEUROLOGIC: Disoriented to date. Oriented to name and place. Motor function 5/5 times four extremities. No sensory dysfunction. No facial drooping. Speech is fluent. LABORATORY DATA: White count 8.7, hemoglobin 11, hematocrit 34, platelet count 169. Sodium 141, potassium 4, chloride 112, bicarbonate 22, BUN 37, creatinine 1.69, glucose of 148. Previous creatinine was 1.88. Respiratory panel negative. Two sets of blood cultures negative. CT extremity 03/21/2019: Severe right hip osteoarthritis. Chest x-ray March 21: No acute disease. Patient is rotated to the right. CT of the head March 21: Mild volume loss. Moderate small-vessel ischemic disease. No intracranial pathology. ASSESSMENT AND PLAN: This is a 68-year-old female who lives alone. History of coronary artery stent, bilateral lower extremity stent for peripheral vascular disease, left carotid endarterectomy, cholecystectomy, appendectomy, tubal ligation. Had a fall at home with a large bruise over the left eye. Patient was admitted for further evaluation of altered mental status and recent fall. IMPRESSION: 1. Recent fall. Per physical therapy, not safe for discharge due to decrease in safety awareness, transfers, and ambulation. Patient does have her own rolling walker, a cane, and a manual wheelchair. Daughter assists with all her appointments. Recommendations are for continued rehabilitation services. 2. Altered mental status. Urinalysis (UA) was unremarkable. Urine culture was not sent. Chest x-ray showed no acute disease. No other acute infectious etiology has been noted. No signs of cellulitis. White count is normal, afebrile. 3. Stage IV chronic kidney disease, currently at baseline creatinine. 4. History of coronary artery disease (CAD) and stenting. Continued on her home atorvastatin, Coreg 25 twice a day. 5. Type 2 diabetes, on insulin 22 units subcutaneous daily. Sliding scale, consistent-carbohydrate diet. 6. Hypertension, improved, 126-160 systolic. 7. Peripheral vascular disease, status peripheral extremity testing. On chronic statin, on Lovenox subcutaneous. DISPOSITION: Await PT recommendations for placement. [facility]
[2019-03-23 20:53] VITALS: BP 121/64
[2019-03-23] MEDS: SLF 3 ML SYR IV SCH (21:58)
[2019-03-24] MEDS: ACETAMINOPHEN TAB 650MG DOSE (2X325MG) PO PRN ×2 (00:58→20:53)
[2019-03-24 06:28] VITALS: BP 146/67
[2019-03-24] MEDS: SLF 3 ML SYR IV SCH ×3 (06:28→22:00)
[2019-03-24 06:56] LABS: HEMATOCRIT 36.2 % (36.0-47.0); HEMOGLOBIN 11.7 g/dl (12.0-15.5); MEAN CORPUSCULAR HEMOGLOBIN 30.4 pg (27.0-33.0); MEAN CORPUSCULAR HGB CONC 32.3 g/dl (32.0-36.5); PLATELET COUNT, AUTOMATED 186 10^3/uL (150-450); RED BLOOD COUNT 3.85 10^6/uL (4.00-5.40); WHITE BLOOD COUNT 8.1 10^3/uL (4.0-10.0)
[2019-03-24 07:38] LABS: CALCIUM LEVEL 8.5 MG/DL (8.8-10.2); CREATININE FOR GFR 1.58 MG/DL (0.55-1.30); GLOMERULAR FILTRATION RATE 34.8 (>45); POTASSIUM SERUM 5.1 MEQ/L (3.5-5.1)
[2019-03-24] MEDS: HumaLOG INSULIN (NovoLOG) PER UNIT SC SCH ×4 (08:32→20:44)
[2019-03-24] MEDS: ATORVASTATIN 20 MG TAB PO SCH (08:33)
[2019-03-24] MEDS: ENOXAPARIN 40 MG/0.4 ML SYRINGE (J1650) SC SCH (08:33)
[2019-03-24] MEDS: LEVEMIR (INSULIN DETEMIR) 1 UNITS/0.01ML SC SCH (08:33)
[2019-03-24] MEDS: amLODIPine 5 MG TAB PO SCH (08:34)
[2019-03-24] MEDS: LOSARTAN 50 MG TAB PO SCH (08:34)
[2019-03-24] MEDS: CARVedilol 12.5 MG TAB PO SCH ×2 (08:34→20:54)
[2019-03-24] MEDS: EZETIMIBE 10 MG TAB (ZETIA) PO SCH (12:21)
[2019-03-24 14:00] VITALS: BP 130/59
--- NOTE | 2019-03-24 20:49 | IPNPDOC ---
Text Note Date of Service The patient was seen on 03/24/19. NOTE SUBJECTIVE This 68-year-old female who appears principally oriented to herself. She had fallen at home. Family is concerned about her diminished cognitive function. This does not appear to be acute. Patient does have underlying history of stroke. The patient is quite distressed and articulating very clearly that she wishes to go home. OBJECTIVE Please see vital signs below Physical exam: HEENT: Neck is supple with no adenopathy or thyromegaly, she is moderately poor dentition, she has notable periorbital ecchymoses to the right eye. There is no subconjunctival hemorrhage or scleral icterus Cardiovascular: Regular rate and rhythm with a normal S1 and S2. Respiratory: Fairly clear to auscultation. Abdomen: Soft, nontender, nondistended, considerable central obesity. Extremities: No pitting edema and pedal pulses are palpable Skin: The patient is able to point out to me multiple bruises to her left arm, right arm and knees associated with her falling. ASSESSMENT/PLAN: This is a 68-year-old female who appears older than her stated age who is oriented to self. She has had a fall at home. Family does not appear to appreciate dementia in this patient. They do describe sundowning behavior, however. The patient has been assessed by PT and occupational therapy services, and she has deficits of great concern for her caring for herself. Rehabilitation placement has been recommended. 2. Wms-jzhlcdq-bfilrekly diabetes mellitus. The patient's glycated hemoglobin is 13.3. This reflects long-term compliance. Concern had been raised with her ability to comply given her diminished intellectual capacity. This would be an additional argument for placement. We will discuss issues with the family tomorrow. VS,Fishbone, I+O VS, Fishbone, I+O Laboratory Tests 03/24/19 06:25 Vital Signs Date Time Temp Pulse Resp B/P (MAP) Pulse Ox O2 Delivery O2 Flow Rate FiO2 03/24/19 14:00 97.9 60 18 130/59 (82) 98 Room Air I&O- Last 24 Hours up to 6 AM 03/24/19 06:00 Intake Total 2975 ml Output Total 600 ml Balance 2375 ml MERCEDES FERNANDEZ MD Mar 24, 2019 20:49
[2019-03-24] MEDS: TICAGRELOR 60 MG PO SCH (20:54)
[2019-03-24 22:00] VITALS: BP 139/58
[2019-03-25] MEDS: SLF 3 ML SYR IV SCH ×3 (05:05→22:00)
[2019-03-25 06:00] VITALS: BP 158/74
[2019-03-25 07:59] LABS: HEMATOCRIT 37.1 % (36.0-47.0); MEAN CORPUSCULAR HEMOGLOBIN 29.9 pg (27.0-33.0); MEAN CORPUSCULAR HGB CONC 32.3 g/dl (32.0-36.5); MEAN CORPUSCULAR VOLUME 92.5 fl (80.0-96.0); PLATELET COUNT, AUTOMATED 196 10^3/uL (150-450); RED BLOOD COUNT 4.01 10^6/uL (4.00-5.40); WHITE BLOOD COUNT 9.1 10^3/uL (4.0-10.0)
[2019-03-25 08:23] LABS: CALCIUM LEVEL 8.6 MG/DL (8.8-10.2); CREATININE FOR GFR 1.26 MG/DL (0.55-1.30); GLOMERULAR FILTRATION RATE 45.2 (>45); POTASSIUM SERUM 4.1 MEQ/L (3.5-5.1)
[2019-03-25] MEDS: ENOXAPARIN 40 MG/0.4 ML SYRINGE (J1650) SC SCH (09:24)
[2019-03-25] MEDS: ATORVASTATIN 20 MG TAB PO SCH (09:26)
[2019-03-25] MEDS: TICAGRELOR 60 MG PO SCH ×2 (09:26→20:14)
[2019-03-25] MEDS: CARVedilol 12.5 MG TAB PO SCH ×2 (09:26→20:14)
[2019-03-25] MEDS: amLODIPine 5 MG TAB PO SCH (09:26)
[2019-03-25] MEDS: LEVEMIR (INSULIN DETEMIR) 1 UNITS/0.01ML SC SCH (09:27)
[2019-03-25] MEDS: LOSARTAN 50 MG TAB PO SCH (09:27)
[2019-03-25] MEDS: HumaLOG INSULIN (NovoLOG) PER UNIT SC SCH ×4 (09:28→20:23)
[2019-03-25] MEDS: EZETIMIBE 10 MG TAB (ZETIA) PO SCH (12:25)
[2019-03-25 14:00] VITALS: BP 146/60
--- NOTE | 2019-03-25 21:28 | IPNPDOC ---
Text Note Date of Service The patient was seen on 03/25/19. NOTE SUBJECTIVE This 68-year-old female who appears principally oriented to herself. She had fallen at home. Family is concerned about her diminished cognitive function. This does not appear to be acute. Patient does have underlying history of stroke. She is calm with family at bedside. OBJECTIVE Please see vital signs below Physical exam: HEENT: Neck is supple with no adenopathy or thyromegaly, she has moderately poor dentition, she has notable periorbital ecchymoses to the right eye. There is no subconjunctival hemorrhage or scleral icterus Cardiovascular: Regular rate and rhythm with a normal S1 and S2. Respiratory: Fairly clear to auscultation. Abdomen: Soft, nontender, nondistended, considerable central obesity. Extremities: No pitting edema and pedal pulses are palpable Skin: The patient is able to point out to me multiple bruises to her left arm, right arm and knees associated with her falling. ASSESSMENT/PLAN: This is a 68-year-old female who appears older than her stated age who is oriented to self. She has had a fall at home. Prolonged discussion with family regarding probable dementia; they do describe sundowning behavior. The patient has been assessed by PT and occupational therapy services, and she has deficits of great concern for her caring for herself. Rehabilitation placement has been recommended. Family is in agreement. 2. Uml-emjrzhk-sznjhzqtu diabetes mellitus. The patient's glycated hemoglobin is 13.3. This reflects long-term compliance. Concern had been raised with her ability to comply given her diminished intellectual capacity/likely dementia. This would be an additional argument for placement. VS,Fishbone, I+O VS, Fishbone, I+O Laboratory Tests 03/25/19 07:13 Vital Signs Date Time Temp Pulse Resp B/P (MAP) Pulse Ox O2 Delivery O2 Flow Rate FiO2 03/25/19 20:14 79 140/89 03/25/19 14:00 97.4 16 100 Room Air I&O- Last 24 Hours up to 6 AM 03/25/19 06:00 Intake Total 1500 ml Balance 1500 ml MERCEDES FERNANDEZ MD Mar 25, 2019 21:28
[2019-03-25 22:00] VITALS: BP 140/78
[2019-03-26 04:00] VITALS: BP 157/78
[2019-03-26 07:08] LABS: HEMATOCRIT 37.4 % (36.0-47.0); HEMOGLOBIN 12.4 g/dl (12.0-15.5); MEAN CORPUSCULAR HEMOGLOBIN 30.8 pg (27.0-33.0); MEAN CORPUSCULAR HGB CONC 33.2 g/dl (32.0-36.5); PLATELET COUNT, AUTOMATED 196 10^3/uL (150-450); RED BLOOD COUNT 4.02 10^6/uL (4.00-5.40); WHITE BLOOD COUNT 10.1 10^3/uL (4.0-10.0)
[2019-03-26 07:35] LABS: CALCIUM LEVEL 8.7 MG/DL (8.8-10.2); CREATININE FOR GFR 1.34 MG/DL (0.55-1.30); GLOMERULAR FILTRATION RATE 42.1 (>45); POTASSIUM SERUM 4.2 MEQ/L (3.5-5.1)
[2019-03-26] MEDS: ENOXAPARIN 40 MG/0.4 ML SYRINGE (J1650) SC SCH (08:15)
[2019-03-26] MEDS: HumaLOG INSULIN (NovoLOG) PER UNIT SC SCH ×4 (08:15→20:31)
[2019-03-26] MEDS: EZETIMIBE 10 MG TAB (ZETIA) PO SCH (08:16)
[2019-03-26] MEDS: ATORVASTATIN 20 MG TAB PO SCH (08:16)
[2019-03-26] MEDS: LEVEMIR (INSULIN DETEMIR) 1 UNITS/0.01ML SC SCH (08:16)
[2019-03-26] MEDS: LOSARTAN 50 MG TAB PO SCH (08:16)
[2019-03-26] MEDS: amLODIPine 5 MG TAB PO SCH (08:17)
[2019-03-26] MEDS: CARVedilol 12.5 MG TAB PO SCH ×2 (08:17→20:31)
[2019-03-26] MEDS: TICAGRELOR 60 MG PO SCH ×2 (08:39→20:32)
[2019-03-26 13:00] VITALS: BP 132/62
[2019-03-26] MEDS: ACETAMINOPHEN TAB 650MG DOSE (2X325MG) PO PRN (17:02)
--- NOTE | 2019-03-26 19:44 | IPNPDOC ---
Text Note Date of Service The patient was seen on 03/26/19. NOTE SUBJECTIVE This is a 68-year-old female who appears principally oriented to herself. She had fallen at home. This does not appear to be acute but likely dementia. Patient does have underlying history of stroke as well. OBJECTIVE Please see vital signs below Physical exam: HEENT: Neck is supple with no adenopathy or thyromegaly, she has moderately poor dentition, she has notable periorbital ecchymoses to the left eye that is tracking downward. There is no subconjunctival hemorrhage or scleral icterus Cardiovascular: Regular rate and rhythm with a normal S1 and S2. Respiratory: Fairly clear to auscultation. Abdomen: Soft, nontender, nondistended, considerable central obesity. Extremities: No pitting edema and pedal pulses are palpable Skin: The patient is able to point out to me multiple bruises to her left arm, right arm and knees associated with her falling, these are improving ASSESSMENT/PLAN: This is a 68-year-old female who appears older than her stated age who is oriented to self. She has had a fall at home. Prolonged discussion with family regarding probable dementia; they do describe sundowning behavior. The patient has been assessed by PT and occupational therapy services, and she has deficits of great concern for her caring for herself. Rehabilitation placement has been recommended. Family is in agreement. 2. Unl-nuqoink-jmtssotvo diabetes mellitus. The patient's glycated hemoglobin is 13.3. This reflects long-term compliance. Concern had been raised with her ability to comply given her diminished intellectual capacity/likely dementia. This would be an additional argument for placement. Placement will be dependent upon available resources; case management assisting. VS,Kevinbone, I+O VS, Fishbone, I+O Laboratory Tests 03/26/19 06:53 Vital Signs Date Time Temp Pulse Resp B/P (MAP) Pulse Ox O2 Delivery O2 Flow Rate FiO2 03/26/19 17:04 18 03/26/19 13:00 96.9 59 132/62 (85) 98 Room Air I&O- Last 24 Hours up to 6 AM 03/26/19 06:00 Intake Total 2460 ml Balance 2460 ml MERCEDES FERNANDEZ MD Mar 26, 2019 19:44
[2019-03-26 20:00] VITALS: BP 116/56
[2019-03-27 06:00] VITALS: BP 129/56
[2019-03-27] MEDS: LEVEMIR (INSULIN DETEMIR) 1 UNITS/0.01ML SC SCH (08:38)
[2019-03-27] MEDS: HumaLOG INSULIN (NovoLOG) PER UNIT SC SCH ×4 (08:39→21:00)
[2019-03-27] MEDS: ENOXAPARIN 40 MG/0.4 ML SYRINGE (J1650) SC SCH (08:39)
[2019-03-27] MEDS: LOSARTAN 50 MG TAB PO SCH (08:39)
[2019-03-27] MEDS: ATORVASTATIN 20 MG TAB PO SCH (08:40)
[2019-03-27] MEDS: CARVedilol 12.5 MG TAB PO SCH ×2 (08:40→22:06)
[2019-03-27] MEDS: EZETIMIBE 10 MG TAB (ZETIA) PO SCH (08:40)
[2019-03-27] MEDS: TICAGRELOR 60 MG PO SCH ×2 (08:40→21:00)
[2019-03-27] MEDS: amLODIPine 5 MG TAB PO SCH (08:40)
--- NOTE | 2019-03-27 10:18 | IPN ---
DATE: 03/27/2019 Ofelia is seen while rounding for the hospitalist. She is doing well with no complaints. Apparently is here for placement. PHYSICAL EXAM: Afebrile. Vital signs stable. Lungs: Clear. Heart: Regular rhythm. Abdomen: Soft, nontender. Neurologic Exam: Nonfocal. IMPRESSION: Medically stable with dementia, type 2 diabetes, suggest a poor compliance with outpatient therapy, hemoglobin A1c of 13%. Plan is for placement.
[2019-03-27 14:00] VITALS: BP 141/90
[2019-03-27 20:58] VITALS: BP 145/63
[2019-03-27] MEDS: ACETAMINOPHEN TAB 650MG DOSE (2X325MG) PO PRN (22:05)
[2019-03-27] MEDS: RAMELTEON 8 MG TAB (ROZEREM) PO SCH (23:56)
[2019-03-28 06:35] VITALS: BP 108/49
[2019-03-28] MEDS: LEVEMIR (INSULIN DETEMIR) 1 UNITS/0.01ML SC SCH (08:24)
[2019-03-28] MEDS: HumaLOG INSULIN (NovoLOG) PER UNIT SC SCH ×4 (08:24→20:04)
[2019-03-28] MEDS: ATORVASTATIN 20 MG TAB PO SCH (08:25)
[2019-03-28] MEDS: EZETIMIBE 10 MG TAB (ZETIA) PO SCH (08:25)
[2019-03-28] MEDS: TICAGRELOR 60 MG PO SCH ×2 (08:25→20:04)
[2019-03-28] MEDS: LOSARTAN 50 MG TAB PO SCH (08:29)
[2019-03-28] MEDS: CARVedilol 12.5 MG TAB PO SCH ×2 (08:29→20:03)
[2019-03-28] MEDS: amLODIPine 5 MG TAB PO SCH (08:30)
[2019-03-28] MEDS: ENOXAPARIN 40 MG/0.4 ML SYRINGE (J1650) SC SCH (08:30)
--- NOTE | 2019-03-28 14:11 | IPN ---
DATE: 03/28/2019 Ofelia is seen in [address] [place]. She is about the same as yesterday. She really wants to go home. Says she has been walking. PHYSICAL EXAMINATION: Afebrile. 108/49. LUNGS: Clear. HEART: Regular rate and rhythm. ABDOMEN: Soft, nontender. Blood sugars have been between 130 and 200. PLAN: I guess tomorrow there will be a decision made whether she is going to acute rehabilitation unit (ARU) or home. She is clinically stable at this point.
[2019-03-28] MEDS: RAMELTEON 8 MG TAB (ROZEREM) PO SCH (20:03)
[2019-03-28] MEDS: ACETAMINOPHEN TAB 650MG DOSE (2X325MG) PO PRN (20:07)
[2019-03-28 21:37] VITALS: BP 162/88
[2019-03-29] MEDS: ACETAMINOPHEN TAB 650MG DOSE (2X325MG) PO PRN ×2 (03:03→20:59)
[2019-03-29 05:49] VITALS: BP 153/67
[2019-03-29] MEDS: HumaLOG INSULIN (NovoLOG) PER UNIT SC SCH ×4 (07:36→21:10)
[2019-03-29] MEDS: ENOXAPARIN 40 MG/0.4 ML SYRINGE (J1650) SC SCH (07:37)
[2019-03-29] MEDS: amLODIPine 5 MG TAB PO SCH (07:38)
[2019-03-29] MEDS: ATORVASTATIN 20 MG TAB PO SCH (07:38)
[2019-03-29] MEDS: LEVEMIR (INSULIN DETEMIR) 1 UNITS/0.01ML SC SCH (07:39)
[2019-03-29] MEDS: EZETIMIBE 10 MG TAB (ZETIA) PO SCH (07:39)
[2019-03-29] MEDS: LOSARTAN 50 MG TAB PO SCH (07:39)
[2019-03-29] MEDS: CARVedilol 12.5 MG TAB PO SCH ×2 (07:43→20:58)
[2019-03-29] MEDS: TICAGRELOR 60 MG PO SCH ×2 (07:49→20:59)
[2019-03-29 09:00] VITALS: BP 148/60
--- NOTE | 2019-03-29 13:45 | IPNPDOC ---
Subjective Date Seen The patient was seen on 03/29/19. Subjective Chief Complaint/HPI Ms Maldonado is a 68 year old woman who was brought into the ED after a fall at home. She is seen sitting up on the side of the bed talking with her daughter this morning. pt reported she is fine, no acute problems, she is just ready to go home! Daughter (Beulah) is in the process of moving her mother's things into her own home where she can provide 24/7 care and into storage. she expects this will be completed over the next couple of days. General: Reports: Normal Appetite; Denies: Chills, Night Sweats, Fatigue, Malaise Constitutional: Denies: Chills, Fever, Night Sweats Eyes: Denies: Pain, Vision change ENT: Denies: Head Aches Skin: Denies: Rash Pulmonary: Denies: Dyspnea, Cough Cardiovascular: Denies: Chest Pain, Palpitations, Orthopnea, Paroxysmal Noc. Dyspnea, Lt Headedness Gastrointestinal: Denies: Nausea, Vomiting, Abdominal Pain, Diarrhea, Constipation Genitourinary: Reports: Frequency; Denies: Dysuria, Retention Hematologic: Reports: Bruising Musculoskeletal: Denies: Neck Pain, Back Pain, Joint Pain, Muscle Pain, Spasms Neurological: Denies: Weakness, Numbness Psych: Reports: Mood Normal Objective Physical Examination General Exam: Positive: Alert, Cooperative, No Acute Distress Eye Exam: Positive: Conjunctiva & lids normal, EOMI, Other Eye Symptoms (L eye bruise, resolving ); Negative: Sclera icteric ENT Exam: Positive: Atraumatic, Mucous membr. moist/pink, Pharynx Normal Neck Exam: Positive: Supple; Negative: JVD, thyromegaly Chest Exam: Positive: Clear to auscultation, Normal air movement Heart Exam: Positive: Rate Normal, Regular Rhythm, Normal S1, Normal S2, Murmurs (2/6 SM ); Negative: Rubs Telemetry: Positive: No significant arrhythmia Abdomen Exam: Positive: Normal bowel sounds, Soft, Hepatospenomegaly; Negative: Tenderness Extremity Exam: Negative: Clubbing, Cyanosis, Edema Skin Exam: Positive: Nl turgor and temperature, Other skin issue (Bruising - L arm/forearm ) Neuro Exam: Positive: Normal Speech, Cranial Nerves 3-12 NL Psych Exam: Positive: Mood NL Assessment /Plan Assessment "Patient is 68F with PMH CAD s/p stents placement, PVD s/p stents in b/l LE, HTN, HLD, IDDM, L. carotid artery stenosis s/p CEA brought in by EMS after falling at home. Patient lives alone and last seen daughter at home yesterday morning and have been doing fine until 2:30AM when she called her daughter stating that she fell at home. EMS reportedly arrived and got her situated but then she fell again and was brought into the ER. Patient reportedly mentation is not at her baseline however was oriented to person and place but thought the year is 2019. Patient was found to have a large bruise over superiolateral aspect of her L. eyelid. Patient complains of feeling sick to her stomach and nauseous but otherwise does not report any pain, headache, visual changes, f ever, chills, neck stiffness or any other complaints. Patient appears comfortable and speak little, most history obtained from daughter and mqacncne-vw-ybe at bedside. Patient reportedly has a walker, cane and wheelchair but gets around the home hanging onto things and does not use walking devices." Falls - No acute issues per imaging. - at baseline pt does have some unsteadiness and requires a walker - PFS recommend 24/7 care and daughter is willing to provide this care at her home; pt may be d/c once this process complete AMS - resolved Nausea - resolved DMII - poorly controlled outpt and pt non-compliant with insulin - continue Levemir and ISS with achs fingersticks CAD - continue home medications HTN - continue home medications HLD - continue home medications PVD - continue home medications JFW:pt seen/examined, agree with note as above Plan/VTE VTE Prophylaxis Ordered?: Yes VS, I&O, 24H, Fishbone Vital Signs/I&O Vital Signs Date Time Temp Pulse Resp B/P (MAP) Pulse Ox O2 Delivery O2 Flow Rate FiO2 03/29/19 09:00 97.5 60 17 148/60 (89) 99 Room Air I&O- Last 24 Hours up to 6 AM 03/29/19 06:00 Intake Total 2160 ml Balance 2160 ml Laboratory Data 24H LABS Laboratory Tests 2 03/28/19 16:49: Bedside Glucose (Misc Panel) 130H 03/28/19 19:59: Bedside Glucose (Misc Panel) 184H 03/29/19 06:23: Bedside Glucose (Misc Panel) 153H 03/29/19 11:28: Bedside Glucose (Misc Panel) 320H Microbiology Microbiology 03/21/19 Respiratory Virus Panel (PCR) (ROSETTE) - Final, Complete 03/21/19 Blood Culture - Final, Complete NO GROWTH AFTER 5 DAYS 03/21/19 Blood Culture - Final, Complete NO GROWTH AFTER 5 DAYS LACEY CHAVEZ PA-C Mar 29, 2019 13:45 Fili Thompson MD Mar 29, 2019 21:20
[2019-03-29 14:00] VITALS: BP 126/60
[2019-03-29 20:40] VITALS: BP 132/61
[2019-03-29] MEDS: RAMELTEON 8 MG TAB (ROZEREM) PO SCH (20:58)
[2019-03-30 04:49] VITALS: BP 172/80
[2019-03-30 06:16] VITALS: BP 186/90
[2019-03-30] MEDS: amLODIPine 5 MG TAB PO SCH (06:17)
[2019-03-30] MEDS: ATORVASTATIN 20 MG TAB PO SCH (07:50)
[2019-03-30] MEDS: LEVEMIR (INSULIN DETEMIR) 1 UNITS/0.01ML SC SCH (07:50)
[2019-03-30] MEDS: EZETIMIBE 10 MG TAB (ZETIA) PO SCH (07:50)
[2019-03-30] MEDS: HumaLOG INSULIN (NovoLOG) PER UNIT SC SCH ×4 (07:50→21:00)
[2019-03-30] MEDS: LOSARTAN 50 MG TAB PO SCH (07:51)
[2019-03-30] MEDS: CARVedilol 12.5 MG TAB PO SCH ×2 (07:51→21:00)
[2019-03-30] MEDS: ENOXAPARIN 40 MG/0.4 ML SYRINGE (J1650) SC SCH (07:52)
[2019-03-30 07:59] VITALS: BP 172/82
[2019-03-30] MEDS: TICAGRELOR 60 MG PO SCH ×2 (08:00→21:00)
--- NOTE | 2019-03-30 09:08 | IPNPDOC ---
Subjective Date Seen The patient was seen on 03/30/19. Subjective Chief Complaint/HPI No events overnight per RN. Ofelia is resting in bed, asking to go home. Objective Physical Examination General Exam: Positive: Alert, Cooperative, No Acute Distress Eye Exam: Positive: Conjunctiva & lids normal (periorbital ecchymosis) ENT Exam: Positive: Mucous membr. moist/pink, Pharynx Normal Neck Exam: Positive: Supple; Negative: JVD, thyromegaly Chest Exam: Positive: Clear to auscultation, Normal air movement Heart Exam: Positive: Rate Normal, Regular Rhythm, Normal S1, Normal S2, Murmurs (2/6 SM ); Negative: Rubs Telemetry: Positive: No significant arrhythmia Abdomen Exam: Positive: Normal bowel sounds, Soft; Negative: Tenderness Extremity Exam: Negative: Clubbing, Cyanosis, Edema Skin Exam: Positive: Nl turgor and temperature, Other skin issue (Bruising - L arm/forearm ) Neuro Exam: Positive: Normal Speech, Cranial Nerves 3-12 NL Psych Exam: Positive: Mood NL Assessment /Plan Assessment Falls - awaiting discharge home, once daughter has completed arrangements to receive her at home AMS - resolved Nausea - resolved DMII - poorly controlled outpt and pt non-compliant with insulin - continue Levemir and ISS with achs fingersticks CAD - continue home medications HTN - continue home medications HLD - continue home medications PVD - continue home medications Plan/VTE VTE Prophylaxis Ordered?: Yes VS, I&O, 24H, Fishbone Vital Signs/I&O Vital Signs Date Time Temp Pulse Resp B/P (MAP) Pulse Ox O2 Delivery O2 Flow Rate FiO2 03/30/19 07:59 172/82 (112) 03/30/19 06:17 60 03/30/19 04:49 97.6 18 95 Room Air I&O- Last 24 Hours up to 6 AM 03/30/19 06:00 Intake Total 1320 ml Balance 1320 ml Laboratory Data 24H LABS Laboratory Tests 2 03/29/19 11:28: Bedside Glucose (Misc Panel) 320H 03/29/19 17:14: Bedside Glucose (Misc Panel) 154H 03/29/19 21:07: Bedside Glucose (Misc Panel) 171H 03/30/19 07:01: Bedside Glucose (Misc Panel) 126H Microbiology Microbiology 03/21/19 Respiratory Virus Panel (PCR) (ROSETTE) - Final, Complete 03/21/19 Blood Culture - Final, Complete NO GROWTH AFTER 5 DAYS 03/21/19 Blood Culture - Final, Complete NO GROWTH AFTER 5 DAYS MO RUANO MD Mar 30, 2019 09:08
[2019-03-30 11:00] VITALS: BP 128/69
[2019-03-30 20:30] VITALS: BP 165/76
[2019-03-30] MEDS: ACETAMINOPHEN TAB 650MG DOSE (2X325MG) PO PRN (20:59)
[2019-03-30] MEDS: RAMELTEON 8 MG TAB (ROZEREM) PO SCH (21:00)
[2019-03-31 00:39] VITALS: BP 162/60
[2019-03-31 04:07] VITALS: BP 137/81
[2019-03-31] MEDS: LEVEMIR (INSULIN DETEMIR) 1 UNITS/0.01ML SC SCH (08:21)
[2019-03-31] MEDS: ENOXAPARIN 40 MG/0.4 ML SYRINGE (J1650) SC SCH (08:21)
[2019-03-31] MEDS: HumaLOG INSULIN (NovoLOG) PER UNIT SC SCH ×2 (08:22→12:12)
[2019-03-31] MEDS: ATORVASTATIN 20 MG TAB PO SCH (08:22)
[2019-03-31] MEDS: EZETIMIBE 10 MG TAB (ZETIA) PO SCH (08:22)
[2019-03-31 08:23] VITALS: BP 163/70
[2019-03-31] MEDS: amLODIPine 5 MG TAB PO SCH (08:23)
[2019-03-31] MEDS: CARVedilol 12.5 MG TAB PO SCH (08:23)
[2019-03-31] MEDS: TICAGRELOR 60 MG PO SCH (08:23)
[2019-03-31] MEDS: LOSARTAN 50 MG TAB PO SCH (08:23)
--- NOTE | 2019-03-31 11:05 | IPNPDOC ---
Subjective Date Seen The patient was seen on 03/31/19. Subjective Chief Complaint/HPI Eager to go home. Objective Physical Examination General Exam: Positive: Alert, Cooperative, No Acute Distress Eye Exam: Positive: Conjunctiva & lids normal (periorbital ecchymosis) ENT Exam: Positive: Mucous membr. moist/pink, Pharynx Normal Neck Exam: Positive: Supple; Negative: JVD, thyromegaly Chest Exam: Positive: Clear to auscultation, Normal air movement Heart Exam: Positive: Rate Normal, Regular Rhythm, Normal S1, Normal S2, Murmurs (2/6 SM ); Negative: Rubs Telemetry: Positive: No significant arrhythmia Abdomen Exam: Positive: Normal bowel sounds, Soft; Negative: Tenderness Extremity Exam: Negative: Clubbing, Cyanosis, Edema Skin Exam: Positive: Nl turgor and temperature, Other skin issue (Bruising - L arm/forearm ) Neuro Exam: Positive: Normal Speech, Cranial Nerves 3-12 NL Psych Exam: Positive: Mood NL Assessment /Plan Assessment Falls - home with home health today AMS - resolved Nausea - resolved DMII - poorly controlled outpt and pt non-compliant with insulin - continue Levemir and ISS with achs fingersticks CAD - continue home medications HTN - continue home medications HLD - continue home medications PVD - continue home medications Plan/VTE VTE Prophylaxis Ordered?: Yes VS, I&O, 24H, Fishbone Vital Signs/I&O Vital Signs Date Time Temp Pulse Resp B/P (MAP) Pulse Ox O2 Delivery O2 Flow Rate FiO2 03/31/19 08:23 62 163/70 03/31/19 04:07 97.6 18 99 Room Air I&O- Last 24 Hours up to 6 AM 03/31/19 06:00 Intake Total 1440 ml Balance 1440 ml Laboratory Data 24H LABS Laboratory Tests 2 03/30/19 11:50: Bedside Glucose (Misc Panel) 181H 03/30/19 16:32: Bedside Glucose (Misc Panel) 158H 03/30/19 21:06: Bedside Glucose (Misc Panel) 182H 03/31/19 06:47: Bedside Glucose (Misc Panel) 115 Microbiology Microbiology 03/21/19 Respiratory Virus Panel (PCR) (ROSETTE) - Final, Complete 03/21/19 Blood Culture - Final, Complete NO GROWTH AFTER 5 DAYS 03/21/19 Blood Culture - Final, Complete NO GROWTH AFTER 5 DAYS MO RUANO MD Mar 31, 2019 11:05
--- NOTE | 2019-04-05 10:05 | DSES ---
DATE OF ADMISSION: 03/21/2019 DATE OF DISCHARGE: 03/31/2019 DISCHARGE DIAGNOSES: 1. Altered mental status secondary to metabolic encephalopathy. 2. Gait instability or frequent falls at home. 3. Diabetes mellitus type 2 insulin dependent. 4. History of coronary artery disease 5. History of peripheral vascular disease. 6. Acute kidney injury. 7. Severe right hip osteoarthritis noted on CT of the right hip. PROCEDURES PERFORMED DURING THIS HOSPITALIZATION: None. CONSULTS ON THE CASE: None. DISPOSITION: Patient is discharged home with home health. DISCHARGE CONDITION: Improved from admission. DISCHARGE RECOMMENDATIONS: Patient is instructed to followup home health instructions. She is to followup with her primary care provider (PCP) in approximately one week. IMAGING: Relevant imaging done during this hospitalization were CT of maxillofacial area without contrast. This did not show any fractures. A right knee x-ray did not show any fractures. Right hip x-ray did not show any fractures. CT of the head without contrast did not show any acute intracranial process. CT of the cervical spine showed no acute cervical fractures. CT of the right hip did not show any acute fracture, only severe osteoarthritis. Chest x-ray did not show any significant cardiopulmonary process. LABS: White blood cell count 10.1, hemoglobin 12.4, hematocrit 37.4, platelet count 196. Sodium 138, potassium 4.2, chloride 110, bicarbonate 24, anion gap is 4, BUN 29, creatinine 1.26, glucose is 150, calcium 8.6, iron 60, ferritin 154. DISCHARGE MEDICATIONS: - Norvasc 5 mg daily - atorvastatin 40 mg daily - Coreg 25 mg twice a day - Zetia 10 daily - losartan 50 mg by mouth daily - Brilinta 60 mg twice a day HOSPITAL COURSE: Ms. Maldonado is a 68-year-old woman who has a history of vascular disease as well as diabetes for which she is insulin dependent. Patient was brought in from home where she lives alone by emergency medical services (EMS) after sustaining a fall. When EMS arrived, patient was noted to have altered mental status. She was brought to the emergency room where she underwent trauma workup as described above with imaging studies. She was found to have a blood glucose of 420 without any evidence of ketoacidosis. She was treated with IV fluids as well as resumed on her insulin regimen. Her creatinine on admission was 1.8 and improved to 1.26 by the time she was discharged. Patient was not noted to have any infections whatsoever. It was felt that her altered mental status was secondary to metabolic derangement associated with dehydration and acute kidney injury and elevated blood sugars. The patient had a prolonged hospital stay only because the family felt that she was no longer safe to live on her own, therefore, they had to make arrangements to move the patient in with themselves and it took them quite a while to do this. Once the arrangements were made, patient was discharged home safely with home health. A total of 30 minutes spent on completing all discharge paperwork.
== END 2019-03-31 13:16 | disposition home health service (06) | DRG 682 ==
LOC: M ED 06:39 → M ED INP 11:50 → ENRESERV 15:17 → M PCU 16:05 → M MS4PR 03-23 17:37
PROVIDERS: ADMIT Student in an Organized Health Care Education/Training Program; ATTEND Student in an Organized Health Care Education/Training Program
DX: N17.9 Acute kidney failure, unspecified (principal); G93.41 Metabolic encephalopathy; F03.90 Unspecified dementia, unspecified severity, without behavioral disturbance, psychotic disturbance, mood disturbance, and anxiety; N18.4 Chronic kidney disease, stage 4 (severe); I12.9 Hypertensive chronic kidney disease with stage 1 through stage 4 chronic kidney disease, or unspecified chronic kidney disease; R41.82 Altered mental status, unspecified; Z98.61 Coronary angioplasty status; I73.9 Peripheral vascular disease, unspecified; E78.5 Hyperlipidemia, unspecified; E11.65 Type 2 diabetes mellitus with hyperglycemia; I65.22 Occlusion and stenosis of left carotid artery; Z95.1 Presence of aortocoronary bypass graft; S00.03XA Contusion of scalp, initial encounter; W01.10XA Fall on same level from slipping, tripping and stumbling with subsequent striking against unspecified object, initial encounter; Y92.009 Unspecified place in unspecified non-institutional (private) residence as the place of occurrence of the external cause; Z90.49 Acquired absence of other specified parts of digestive tract; F17.200 Nicotine dependence, unspecified, uncomplicated; R11.0 Nausea; Z91.14 Patient's other noncompliance with medication regimen; I25.10 Atherosclerotic heart disease of native coronary artery without angina pectoris; Z79.899 Other long term (current) drug therapy; Z88.0 Allergy status to penicillin; R29.6 Repeated falls; D64.9 Anemia, unspecified; E11.22 Type 2 diabetes mellitus with diabetic chronic kidney disease; Z86.73 Personal history of transient ischemic attack (TIA), and cerebral infarction without residual deficits; M16.11 Unilateral primary osteoarthritis, right hip; E86.0 Dehydration

== ENCOUNTER → 2019-05-24 | Outpatient (REF) | payer MEDICARE, MEDICAID ==
[~2019-05-24] MED LIST changes: +AMLO5TAB6 PO; +ATOR40TA75 PO; +BRIL1TAB PO; +CARV25TA PO; +COMMENTS; +EZET10TA21 PO; +LOSA50TA88 PO
== END ==
LOC: M SFHCLERA 11:03
PROVIDERS: ATTEND Nurse Practitioner Family
DX: J18.9 Pneumonia, unspecified organism (principal); Z11.59 Encounter for screening for other viral diseases

== ENCOUNTER → 2019-05-24 | Outpatient (CLI) | payer MEDICARE, MEDICAID ==
--- NOTE | 2019-05-24 11:01 | REP ---
Clinical: Wheezing. Technique: PA and lateral. Comparison: 03/21/2019. Findings: Mediastinum and cardiac silhouette are normal. Lung ro demonstrate chronic-appearing changes. Subtle basilar atelectasis cannot be excluded. No focal consolidation. No effusion. No pneumothorax. Skeletal structures intact. Impression: Chronic-appearing changes. Cannot exclude very subtle left basilar atelectasis. Electronically Signed by Rome Doss MD 05/24/2019 10:53 A
== END ==
LOC: M LRY 10:28
PROVIDERS: ATTEND Nurse Practitioner Family
DX: R06.2 Wheezing (principal); Z11.59 Encounter for screening for other viral diseases; J18.9 Pneumonia, unspecified organism
CPT/HCPCS: 71046; 87486; 87581; 87633; 87798; G0463; U0002

== ENCOUNTER → 2020-04-03 | Outpatient (CLI) | payer MEDICARE ==
[~2020-04-03] MED LIST changes: +AMLO1TAB24 PO; -AMLO5TAB6 PO; +ASPI81TA26 PO; +INVO100T PO
[2020-04-03 10:14] LABS: BASO # 0.1 10^3/uL (0.0-0.2); EOS # 0.3 10^3/uL (0.0-0.5); EOS % 3.5 % (0.0-3.0); HEMATOCRIT 39.9 % (36.0-47.0); HEMOGLOBIN 12.8 g/dl (12.0-15.5); LYMPH # 2.1 10^3/uL (1.5-5.0); LYMPH % 21.7 % (24.0-44.0); MEAN CORPUSCULAR HEMOGLOBIN 29.9 pg (27.0-33.0); MEAN CORPUSCULAR HGB CONC 32.1 g/dl (32.0-36.5); MEAN CORPUSCULAR VOLUME 93.2 fl (80.0-96.0); MONO # 0.7 10^3/uL (0.0-0.8); MONO % 7.2 % (0.0-5.0); NEUTROPHILS # 6.4 10^3/uL (1.5-8.5); PLATELET COUNT, AUTOMATED 278 10^3/uL (150-450); RED BLOOD COUNT 4.28 10^6/uL (4.00-5.40); WHITE BLOOD COUNT 9.7 10^3/uL (4.0-10.0)
[2020-04-03 10:24] LABS: INR 0.9; PROTHROMBIN TIME 12.3 SECONDS (12.5-14.3)
--- NOTE | 2020-04-03 10:25 | REP ---
INDICATION: UNILAT PRIMARY OSTEOARTHRITIS, RIGHT HIP, LAB 1ST EKG 2ND XR COMPARISON: 05/24/2019 TECHNIQUE: PA and lateral. FINDINGS: The mediastinum and cardiac silhouette are normal. A vague 1 cm ovoid density in the right upper lung zone on frontal radiograph cannot be excluded. No further consolidation, effusion, or pneumothorax. Skeletal structures are intact. IMPRESSION: Cannot exclude 1 cm ovoid density in the right upper lung zone. Consider chest CT for further investigation. <Electronically signed by Rome Doss > 04/03/20 1022
[2020-04-03 10:42] LABS: ALBUMIN 3.5 GM/DL (3.2-5.2); BILIRUBIN,TOTAL 0.5 MG/DL (0.2-1.0); CALCIUM LEVEL 9.6 MG/DL (8.8-10.2); CREATININE FOR GFR 1.84 MG/DL (0.55-1.30); GLOMERULAR FILTRATION RATE 29.1 (>45); POTASSIUM SERUM 4.5 MEQ/L (3.5-5.1); TOTAL PROTEIN 7.2 GM/DL (6.4-8.2)
[2020-04-03 10:43] LABS: ERYTHROCYTE SEDIMENTATION RATE 49 mm/hr (0-30)
--- NOTE | 2020-04-04 15:40 | ECGEPIP ---
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 Electronically Signed on 04-04-2020 15:40:28 EST by Win Cantor
== END ==
LOC: M LAB 09:32
PROVIDERS: ATTEND Orthopaedic Surgery
DX: M16.11 Unilateral primary osteoarthritis, right hip (principal); Z79.899 Other long term (current) drug therapy

== ENCOUNTER → 2020-04-09 | Outpatient (CLI) | payer MEDICARE | LOC: M LABSMTC 09:42 | PROVIDERS: ATTEND Anesthesiology | DX: Z01.812 Encounter for preprocedural laboratory examination (principal); Z20.822 Contact with and (suspected) exposure to COVID-19 ==

== ENCOUNTER 2020-04-14 09:24 | Inpatient (IN) | payer MEDICARE ==
--- NOTE | 2020-04-11 15:50 | HPE ---
HISTORY AND PHYSICAL DATE OF ADMISSION: 04/14/2020 ATTENDING: HENRIK BROWN MD CHIEF COMPLAINT: Right hip pain. HISTORY OF PRESENT ILLNESS: Ofelia is a pleasant 69-year-old female with progressively worsening right hip pain and stiffness. She has failed to improve with conservative treatment. She has elected for surgery for her continued symptoms. She has pain with weightbearing activities and her activities of daily living. X-rays are notable for advanced osteoarthritis of the right hip joint. She is consented for a right total hip arthroplasty by Dr. Henrik Brown. Medical optimization was performed by Dr. Aj's office. ALLERGIES: PENICILLINS. CURRENT MEDICATIONS: 1. Atorvastatin and calcium 40 mg daily. 2. Carvedilol 25 mg twice a day. 3. Latanoprost 0.005%. 4. Tramadol 50 mg one every 4-6 hours as needed. 5. Aspirin 81 mg once a day. 6. Invokana 300 mg. 7. Brilinta 60 mg. 8. Amlodipine besylate 10 mg. PAST MEDICAL HISTORY: 1. Diabetes. 2. Hypertension. 3. Heart disease. 4. High cholesterol. 5. History of a heart attack. SOCIAL HISTORY: This patient does smoke. She is not working. She does not drink alcohol. FAMILY HISTORY: Noncontributory. REVIEW OF SYSTEMS: This patient denies chest pain, heart palpitations, cough, wheezing, difficulty breathing, or shortness of breath. She denies abdominal pain, nausea, vomiting, diarrhea, or constipation. She denies recent upper respiratory infection or urinary tract infection symptoms. She does complain of persistent pain in her right hip. PHYSICAL EXAMINATION: GENERAL: She is a well-nourished, well-developed, in no acute distress, alert female who ambulates with a moderate limp favoring the right lower extremity. She uses a walker. VITAL SIGNS: She is 5 feet 1.5 inches and weighs 168.2 pounds, temperature 96.9, blood pressure 141/85, pulse 65, and respirations 14. NECK: Supple without adenopathy or jugular venous distention. LUNGS: Clear to auscultation without rales or wheezes. HEART: Regular rate and rhythm. ABDOMEN: Bowel sounds were present. EXTREMITIES: Examination of the hip revealed intact skin. She had decreased range of motion due to pain and stiffness. The limb was neurovascularly intact. LABORATORY DATA: Pro time 12.3, INR 0.90, glucose 387, BUN 36, creatinine 1.84, for a GFR of 29.1. Sodium 136, potassium 4.5. CBC was within normal limits. Sedimentation rate was 49. EKG shows sinus bradycardia at 57 beats per minute with evidence of an old anteroseptal infarct. Chest x-ray showed a 1-cm ovoid density in the right upper lung, recommending CT for further investigation. IMPRESSION: Symptomatic osteoarthritis of the right hip joint in a patient with chronic kidney disease and a questionable finding on her chest x-ray. PLAN: She is consented for a right total hip arthroplasty by Dr. Henrik Brown. She did see her primary last week. She tells me that she has been cleared, but we are still pending the official clearance from Dr. Aj's office.
[~2020-04-14] VITALS: Ht 160 cm; Wt 78.1 kg
[2020-04-14] VITALS (7 sets, daily range): BP systolic 121–162; BP diastolic 57–70
[~2020-04-14 09:24] MED LIST changes: +CLINDAMYCIN 900 MG in IV 1 EA IV ONE; +LR 1,000 ML IV ONE
--- OUTSIDE RECORDS SUMMARY | 2020-04-14 09:27 | CCD | Continuity of Care Document ---
Author Author Ofelia STRONG PA-C Organization Unknown Address [address] [place] [address] Phone [phone] Care Team Providers Care National Flatbed Truck Driver Name Role Phone Marc Aj AUTM Problems Description No Information Available Social History Type Date Description Comments Sex Unknown ETOH Use Denies alcohol use Tobacco Use Start: Unknown Patient is a current smoker, smo kes every day Allergies, Adverse Reactions, Alerts Active Allergies Reaction Severity Comments Date Penicillin 10/01/2016 Medications Active Medications SIG Qnty Indications Ordering Provide r Date Hibiclens 4% Liquid use in shower once daily for 5 days before surgery 1units Yoandy Brown MD 04/04/2020 Mupirocin 2% Ointment apply a pea sized amount to the nasal passages 3 times a day for 5 days prior to surgery 22gm Yoandy Brown MD 04/04/2020 Atorvastatin Calcium 40mg Tablets 1 by mouth every day Unknown Carvedilol 25mg Tablets take 1 tablet by mouth twice a day. Unknown Ezetimibe-Simvastatin 10-10mg Tablets Unknown Latanoprost 0.005% Solution Unknown Tramadol HCL 50mg Tablets 1 every 4-6 hours as needed pain Unknown Aspirin 81 Low Dose 81mg Chewtabs 1 by mouth every day Unknown Invokana 300mg Tablets Unknown Brilinta 60mg Tablets Unknown Amlodipine Besylate 10mg Tablets Unknown History Medications Mupirocin 2% Ointment Apply To The Affected Area(S) In Nasal PASSAGe a Pea Size Amount Three Times Daily For 5 Days Prior To Surgery 22untalisha Brown MD 04/03/2020 - 04/04/2020 Hibiclens 4% Liquid use in shower once daily for 5 days before surgery 1untalisha Brown MD 04/03/2020 - 04/04/2020 Immunizations Description No Information Available Vital Signs Date Vital Result Comment 04/11/2020 3:02pm BP Systolic 141 mmHg BP Diastolic 85 mmHg Heart Rate 65 /min Body Temperature 96.9 F Height 61.5 inches 5'1.50" Weight 168.12 lb BMI (Body Mass Index) 31.2 kg/m2 Respiratory Rate 14 /min 02/14/2020 4:41pm Body Temperature 97.3 F Height 61.5 inches 5'1.50" Weight 150.00 lb BMI (Body Mass Index) 27.9 kg/m2 Results Test Acquired Date Facility Test Result H/L Range Note Prothrombin Time/Inr 04/03/2020 [facility] entr [address] [place] [address] (315)- - Prothrombin Time 12.3 seconds Normal 12.5-14.3 Inr 0.90 Normal 1 Comprehensive Metabolic Profil 04/03/2020 [facility] [address] [place] [address] (315)- - Glucose, Fasting 387 mg/dL High 70-100 Blood Urea Nitrogen 36 mg/dL High 7-18 Creatinine For GFR 1.84 mg/dL High 0.55-1.30 Glomerular Filtration Rate 29.1 Low >45 2 Sodium Level 136 mEq/L Normal 136-145 Potassium Serum 4.5 mEq/L Normal 3.5-5.1 Chloride Level 104 mEq/L Normal 98-107 Carbon Dioxide Level 27 mEq/L Normal 21-32 Anion Gap 5 mEq/L Low 8-16 Calcium Level 9.6 mg/dL Normal 8.8-10.2 Ast/Sgot 20 U/L Normal 7-37 Alt/SGPT 36 U/L Normal 12-78 Alkaline Phosphatase 266 U/L High 45-117 Bilirubin,Total 0.5 mg/dL Normal 0.2-1.0 Total Protein 7.2 GM/DL Normal 6.4-8.2 Albumin 3.5 GM/DL Normal 3.2-5.2 Albumin/Globulin Ratio 0.9 Low 1.2-2.2 CBC With Differential 04/03/2020 [facility] [address] [place] [address] (315)- - White Blood Count 9.7 10 Normal 4.0-10.0 Red Blood Count 4.28 10 Normal 4.00-5.40 Hemoglobin 12.8 g/dL Normal 12.0-15.5 Hematocrit 39.9 % Normal 36.0-47.0 Mean Corpuscular Volume 93.2 fl Normal 80.0-96.0 Mean Corpuscular Hemoglobin 29.9 pg Normal 27.0-33.0 Mean Corpuscular HGB Conc 32.1 g/dL Normal 32.0-36.5 Red Cell Distribution Width 13.5 % Normal 11.5-14.5 Platelet Count, Automated 278 10 Normal 150-450 Neutrophils % 66.0 % Normal 36.0-66.0 Lymph % 21.7 % Low 24.0-44.0 [place] % 7.2 % High 0.0-5.0 Eos % 3.5 % High 0.0-3.0 Baso % 1.0 % Normal 0.0-1.0 Immature Granulocyte % 0.6 % Normal 0-3.0 Nucleated Red Blood Cell % 0.0 % Normal 0-0 Neutrophils # 6.4 10 Normal 1.5-8.5 Lymph # 2.1 10 Normal 1.5-5.0 [place] # 0.7 10 Normal 0.0-0.8 Eos # 0.3 10 Normal 0.0-0.5 Baso # 0.1 10 Normal 0.0-0.2 Laboratory test finding 04/03/2020 [facility] [address] [place] [address] (315)- - Erythrocyte Sedimentation Rate 49 mm/hr High 0-30 Laboratory test finding 03/24/2020 [facility] [address] [place] [address] (315)- - Erythrocyte Sedimentation Rate <pending> Xray 03/24/2020 [facility] nter (315)- - Chest x-ray <pending> Order 03/24/2020 [facility] nter EKG <pending> 1 THERAPUTIC HUMAN INR VALUES INDICATIONS NORMAL RANGES PROPHYLAXIS/TREATMENT OF: VENOUS THROMBOSIS 2.0-3.0 PULMONARY EMBOLISM 2.0-3.0 PREVENTION OF SYSTEMIC EMBOLISM FROM: TISSUE HEART VALVES 2.0-3.0 ACUTE MYOCARDIAL INFARCTION 2.0-3.0 VALVULAR HEART DISEASE 2.0-3.0 ATRIAL FIBRILLATION 2.0-3.0 MECHANICAL VALVES(HIGH RISK) 2.5-3.5 RECURRENT MYOCARDIAL INFARCTION 2.5-3.5 2 Units are mL/min/1.73 m2 Chronic Kidney Disease Staging per NKF: Stage I & II GFR >=60 Normal to Mildly Decreased Stage III GFR 30-59 Moderately Decreased Stage IV GFR 15-29 Severely Decreased Stage V GFR <15 Very Little GFR Left ESRD GFR <15 on CAR REPAIRER PULLMAN Procedures Date Code Description Status 02/14/2020 22052 X-Ray Hip Unilateral With Pelvis 2-3 Views Completed Medical Devices Description No Information Available Encounters Type Date Location Provider Dx Diagnosis Office Visit 04/11/2020 3:00p [place] Janine Strong PA-C Z0 1.818 Encounter for other preprocedural examination M16.11 Unilateral primary osteoarth ritis, right hip Office Visit 02/14/2020 1:15p [place] Yoandy Brown MD M16.11 Unilateral primary osteoarthritis, right hip Assessments Date Code Description Provider 04/11/2020 Z01.818 Encounter for other preprocedura l examination Janine Strong PA-C 04/11/2020 M16.11 Unilateral primary osteoarthriti s, right hip Janien Strong PA-C 02/14/2020 M16.11 Unilateral primary osteoarthriti s, right hip Yoandy Brown MD Plan of Treatment Future Appointment(s):* 04/26/2020 11:00 am - Yoandy Brown MD at [place] * 04/14/2020 12:30 pm - Janine Strong PA-C at Surgery [facility] Inpatient * 04/14/2020 12:30 pm - Yoandy Brown MD at Surgery [facility] Inpatient Functional Status Description No Information Available Mental Status Description No Information Available Referrals Refer to Dr Reason for Referral Status Appt Date Yoandy Brown MD SURGERY NO AUTH REQUIRED FOR RT TOTAL HIP([id number]) TO SURGERY NT Created [address] [facility], [address] [place] [address] [phone]
--- OUTSIDE RECORDS SUMMARY | 2020-04-14 09:27 | CCD | Continuity of Care Document ---
Author Author Ofelia BROWN MD Organization Unknown Address [address] [facility], [address] [address] Phone [phone] Care Team Providers Care Clinical Pharmacist Name Role Phone Marc Aj AUTM Problems Description No Information Available Social History Type Date Description Comments Sex Unknown ETOH Use Denies alcohol use Tobacco Use Start: Unknown Patient is a current smoker, smo kes every day Allergies, Adverse Reactions, Alerts Active Allergies Reaction Severity Comments Date Penicillin 10/01/2016 Medications Active Medications SIG Qnty Indications Ordering Provide r Date Atorvastatin Calcium 40mg Tablets 1 by mouth every day Unknown Carvedilol 25mg Tablets take 1 tablet by mouth twice a day. Unknown Brilinta 90mg Tablets Unknown Ezetimibe-Simvastatin 10-10mg Tablets Unknown Amlodipine Besylate 2.5mg Tablets Unknown Latanoprost 0.005% Solution Unknown Tramadol HCL 50mg Tablets 1 every 4-6 hours as needed pain Unknown Invokana 100mg Tablets Unknown Aspirin 81 Low Dose 81mg Chewtabs 1 by mouth every day Unknown Immunizations Description No Information Available Vital Signs Date Vital Result Comment 02/14/2020 4:41pm Body Temperature 97.3 F Height 61.5 inches 5'1.50" Weight 150.00 lb BMI (Body Mass Index) 27.9 kg/m2 10/28/2017 10:25am Body Temperature 98.1 F Height 60 inches 5'0" Weight 151.00 lb BMI (Body Mass Index) 29.5 kg/m2 Results Test Acquired Date Facility Test Result H/L Range Note Prothrombin Time/Inr 04/03/2020 [facility] entr [address] [place] [address] (315)- - Prothrombin Time 12.3 seconds Normal 12.5-14.3 Inr 0.90 Normal 1 Comprehensive Metabolic Profil 04/03/2020 [facility] [address] [place] [address] (315)- - Glucose, Fasting 387 mg/dL High [...] 0.9 Low 1.2-2.2 CBC With Differential 04/03/2020 [place] [address] [place] [address] (315)- - White Blood Count 9.7 10 [...] 36.0-66.0 Lymph % 21.7 % Low 24.0-44.0 [place] % 7.2 % High 0.0-5.0 Eos % 3.5 % High 0.0-3.0 Baso % 1.0 % Normal 0.0-1.0 Immature Granulocyte % 0.6 % Normal 0-3.0 Nucleated Red Blood Cell % 0.0 % Normal 0-0 Neutrophils # 6.4 10 Normal 1.5-8.5 Lymph # 2.1 10 Normal 1.5-5.0 [place] # 0.7 10 Normal 0.0-0.8 Eos # 0.3 10 Normal 0.0-0.5 Baso # 0.1 10 Normal 0.0-0.2 Laboratory test finding 04/03/2020 [facility] [address] [place] [address] (315)- - Erythrocyte Sedimentation Rate 49 mm/hr High 0-30 Laboratory test finding 03/24/2020 [facility] [address] [place] [address] (315)- - Erythrocyte Sedimentation Rate <pending> Xray 03/24/2020 [facility] [employer] nter (315)- - Chest x-ray <pending> Order 03/24/2020 [facility] nter EKG <pending> Order 02/16/2020 [facility] nter Surgery <pending> 1 THERAPUTIC HUMAN INR VALUES INDICATIONS [...] Little GFR Left ESRD GFR <15 on [employer] SUPER[employer]OR Procedures Date Code Description Status 02/14/2020 63327 X-Ray Hip Unilateral With Pelvis 2-3 Views Completed Medical Devices Description No Information Available Encounters Type Date Location Provider Dx Diagnosis Office Visit 02/14/2020 1:15p [place] Yoandy Brown MD M16.11 Unilateral primary osteoarthritis, right hip Assessments Date Code Description Provider 02/14/2020 M16.11 Unilateral primary osteoarthriti s, right hip Yoandy Brown MD Plan of Treatment 02/14/2020 - Yoandy Brown MD* M16.11 Unilateral primary osteoarthritis, right hip* Follow up:* post op Functional Status Description No Information Available Mental Status Description No Information Available Referrals Refer to Dr Reason for Referral Status Appt Date Yoandy Brown MD SURGERY NO AUTH REQUIRED FOR RT TOTAL HIP([id number]) TO SURGERY NT Created [address] [facility], [address] [place] [address] [phone]
--- OUTSIDE RECORDS SUMMARY | 2020-04-14 09:27 | CCD | Continuity of Care Document ---
Author Author Ofelia CONLEY MD Organization Unknown Address [address] [facility] [address] [place] [address] Phone [phone] Care Team Providers Care Clinical Nursing Intern Name Role Phone Yoandy Brown MD AUTM [phone] Yoandy Brown MD AUTM [phone] Social History Type Date Description Comments Sex Unknown Results Test Acquired Date Facility Test Result H/L Range Note Prothrombin Time/Inr 04/03/[address] [address] [phone] Prothrombin Time 12.3 seconds Normal 12.5-14.3 Inr 0.90 Normal 1 Comprehensive Metabolic Profil 04/03/[address] [address] [phone] Glucose, Fasting 387 mg/dL High 70-100 Blood [...] 0.9 Low 1.2-2.2 CBC With Differential 04/03/2020 [facility] [address] [place] [address] [phone] White Blood Count 9.7 10 Normal 4.0-10.0 [...] 36.0-66.0 Lymph % 21.7 % Low 24.0-44.0 [place] % 7.2 % High 0.0-5.0 Eos % 3.5 % High 0.0-3.0 Baso % 1.0 % Normal 0.0-1.0 Immature Granulocyte % 0.6 % Normal 0-3.0 Nucleated Red Blood Cell % 0.0 % Normal 0-0 Neutrophils # 6.4 10 Normal 1.5-8.5 Lymph # 2.1 10 Normal 1.5-5.0 [place] # 0.7 10 Normal 0.0-0.8 Eos # 0.3 10 Normal 0.0-0.5 Baso # 0.1 10 Normal 0.0-0.2 Laboratory test finding 04/03/2020 [facility] [address] [place] [address] [phone] Erythrocyte Sedimentation Rate 49 mm/hr High 0 -30 1 THERAPUTIC HUMAN INR VALUES INDICATIONS NORMAL [...] Little GFR Left ESRD GFR <15 on [employer] Encounters Type Date Location Provider Dx Diagnosis Office Visit 04/06/2020 2:00p [facility] I10 Essential (primary) hyperten shaun E11.9 Type 2 diabetes mellitus wit hout complications E78.5 Hyperlipidemia, unspecified Z01.818 Encounter for other preproce dural examination Office Visit 02/10/2020 9:00a [facility] [place] I10 Essential (primary) hyperten shaun E11.9 Type 2 diabetes mellitus wit hout complications E78.5 Hyperlipidemia, unspecified Assessments Date Code Description Provider 04/06/2020 I10 Essential (primary) hypertension [facility] [place] 04/06/2020 E11.9 Type 2 diabetes mellitus without complications [facility] 04/06/2020 E78.5 Hyperlipidemia, unspecified [facility] [place] 04/06/2020 Z01.818 Encounter for other preprocedura l examination [facility] [place] 02/10/2020 I10 Essential (primary) hypertension [facility] 02/10/2020 E11.9 Type 2 diabetes mellitus without complications [facility] 02/10/2020 E78.5 Hyperlipidemia, unspecified [facility] [place] 11/11/2019 I10 Essential (primary) hypertension [facility] 11/11/2019 E11.9 Type 2 diabetes mellitus without complications [facility] 11/11/2019 E78.5 Hyperlipidemia, unspecified [facility] Plan of Treatment Future Appointment(s):* 05/10/2020 9:30 am - [facility] at [facility]
--- OUTSIDE RECORDS SUMMARY | 2020-04-14 09:27 | CCD | Continuity of Care Document ---
Author Author Ofelia STRONG PA-C Organization Unknown Address [address] [place] [address] Phone [phone] Care Team Providers Care Tail End Rider Name Role Phone Marc Aj AUTM [phone] Problems Description No Information Available Social History [...] Result H/L Range Note Prothrombin Time/Inr 04/03/2020 [facility] entr [address] [place] [address] (315)- - Prothrombin Time 12.3 seconds Normal 12.5-14.3 Inr 0.90 Normal 1 Comprehensive Metabolic Profil 04/03/2020 [facility] [address] [place] [address] (315)- - Glucose, Fasting 387 mg/dL High [...] 0.9 Low 1.2-2.2 CBC With Differential 04/03/2020 [facility] [address] [place] [address] (315)- - White Blood Count 9.7 10 [...] 36.0-66.0 Lymph % 21.7 % Low 24.0-44.0 [place] % 7.2 % High 0.0-5.0 Eos % 3.5 % High 0.0-3.0 Baso % 1.0 % Normal 0.0-1.0 Immature Granulocyte % 0.6 % Normal 0-3.0 Nucleated Red Blood Cell % 0.0 % Normal 0-0 Neutrophils # 6.4 10 Normal 1.5-8.5 Lymph # 2.1 10 Normal 1.5-5.0 [place] # 0.7 10 Normal 0.0-0.8 Eos # 0.3 10 Normal 0.0-0.5 Baso # 0.1 10 Normal 0.0-0.2 Laboratory test finding 04/03/2020 [facility] [address] [place] [address] (315)- - Erythrocyte Sedimentation Rate 49 mm/hr High 0-30 Laboratory test finding 03/24/2020 [facility] [address] [place] [address] (315)- - Erythrocyte Sedimentation Rate <pending> Xray 03/24/2020 [facility] nter (315)- - Chest x-ray <pending> Order 03/24/2020 [facility] nter EKG <pending> 1 THERAPUTIC HUMAN [...] Little GFR Left ESRD GFR <15 on RECRUITING ASSISTANT Procedures Date Code Description Status 02/14/2020 70203 X-Ray Hip Unilateral With Pelvis 2-3 Views Completed Medical Devices Description No Information Available Encounters Type Date Location Provider Dx Diagnosis Office Visit 04/11/2020 3:00p [place] Janine Strong PA-C Z0 1.818 Encounter for other preprocedural examination M16.11 Unilateral primary osteoarth ritis, right hip Office Visit 02/14/2020 1:15p [place] Yoandy Brown MD M16.11 Unilateral primary osteoarthritis, right hip Assessments Date Code Description Provider 04/11/2020 Z01.818 Encounter for other preprocedura l examination Janine Strong PA-C 04/11/2020 M16.11 Unilateral primary osteoarthriti s, right hip Janine Strong PA-C 02/14/2020 M16.11 Unilateral primary osteoarthriti s, right hip Yoandy Brown MD Plan of Treatment Future Appointment(s):* 04/26/2020 11:00 am - Yoandy Brown MD at [place] * 04/14/2020 12:30 pm - Janine Strong PA-C at Surgery [facility] Inpatient * 04/14/2020 12:30 pm - Yoandy Brown MD at Surgery [facility] Inpatient Functional Status Description No Information Available Mental Status Description No Information Available Referrals Refer to Dr Reason for Referral Status Appt Date Yoandy Brown MD SURGERY NO AUTH REQUIRED FOR RT TOTAL HIP([id number]) TO SURGERY NT Created [address] [facility], [address] [place] [address] [phone]
--- OUTSIDE RECORDS SUMMARY | 2020-04-14 09:28 | CCD | Continuity of Care Document ---
Author Author Ofelia BROWN MD Organization Unknown Address [address] [place] [address], [address] [address] Phone [phone] Care Team Providers Care Edge Inker Uppers Name Role Phone Marc Aj AUTM [phone] Problems Description No Information Available Social History Type Date Description Comments Sex Unknown ETOH Use Denies alcohol use Tobacco Use Start: Unknown Patient is a current smoker, smo kes every day Allergies, Adverse Reactions, Alerts Active Allergies Reaction Severity Comments Date Penicillin 10/01/2016 Medications Active Medications SIG Qnty Indications Ordering Provide r Date Alogliptin Benzoate 25mg Tablets Unknown Atorvastatin Calcium 40mg Tablets 1 by mouth every day Unknown Carvedilol 25mg Tablets take 1 tablet by mouth twice a day. Unknown Brilinta 90mg Tablets Unknown Losartan Potassium 100mg Tablets 1 by mouth every day Unknown Metformin HCL ER 500mg Tablets ER 24HR 4 tab by mouth daily Unknown Vitamin D2 55730 Tablets 1 by mouth every Week Unknown Immunizations Description No Information Available Vital Signs Date Vital Result Comment 10/28/2017 10:25am Body Temperature 98.1 F Height 60 inches 5'0" Weight 151.00 lb BMI (Body Mass Index) 29.5 kg/m2 09/30/2017 9:17am Body Temperature 97.8 F Height 61 inches 5'1" Weight 171.50 lb BMI (Body Mass Index) 32.4 kg/m2 Results Description No Information Available Procedures Date Code Description Status 02/14/2020 66336 X-Ray Hip Unilateral With Pelvis 2-3 Views Completed Medical Devices Description No Information Available Encounters Type Date Location Provider Dx Diagnosis Office Visit 02/14/2020 1:15p [place] Yoandy Brown MD M16.11 Unilateral primary osteoarthritis, right hip Assessments Date Code Description Provider 02/14/2020 M16.11 Unilateral primary osteoarthriti s, right hip Yoandy Brown MD Plan of Treatment 02/14/2020 - Yoandy Brown MD* M16.11 Unilateral primary osteoarthritis, right hip* New Orders:* Surgery, Ordered: 02/14/20 * Follow up:* post op Functional Status Description No Information Available Mental Status Description No Information Available Referrals Description No Information Available
--- OUTSIDE RECORDS SUMMARY | 2020-04-14 09:28 | CCD | Continuity of Care Document ---
Author Ofelia Adams DPM-PC Organization Unknown Address [address] [place] [address] Phone [phone] Care Team Providers Care Barrel Reamer Name Role Phone Marc Aj AUTM [phone] Problems Active Problems Provider Date Essential hypertension Angeli Iglesias DPM-pc Onset: 020 Corns and callosities Angeli Iglesias DPM-pc Onset: 06/24/19 20 Neuropathy due to type 2 diabetes mellitus Anika Mcneal PM-pc Onset: 06/24/2019 Type 2 diabetes mellitus with diabetic peripheral tyesha opathy without gangrene Angeli Iglesias DPM-pc Onset: 06/24/2019 Pain in limb Angeli Iglesias DPM-pc Onset: 06/24/2019 Dystrophia unguium Angeli Iglesias DPM-pc Onset: 06/24/2019 Ingrowing nail Angeli Iglesias DPM-pc Onset: 06/24/2019 Social History Type Date Description Comments Sex Unknown ETOH Use Denies alcohol use Tobacco Use Start: Unknown Patient is a current smoker, smo kes every day 1 pack every 3 days Recreational Drug Use Denies Drug Use Smoking Status Reviewed: 12/15/19 Patient is a current smoker, smokes every day 1 pack every 3 days Allergies, Adverse Reactions, Alerts Active Allergies Reaction Severity Comments Date Penicillin V 06/24/2019 NKFA 06/24/2019 NKEA 06/24/2019 Medications Active Medications SIG Qnty Indications Ordering Provide r Date Invokana 300mg Tablets 1 by mouth every day Unknown Amlodipine Besylate 10mg Tablets 1 by mouth every day Unknown Tradjenta 5mg Tablets 1 by mouth every day Unknown Tramadol HCL 50mg Tablets 1 tab by mouth 4 times a day as needed for pain Unknown 0 Brilinta 60mg Tablets Unknown Zetia 10mg Tablets 1 by mo uth every day Unknown Atorvastatin Calcium 40mg Tablets 1 by mouth every day Unknown Carvedilol 25mg Tablets 1 by mouth twice a day Unknown Aspirin 81mg Tablets DR 1 by mouth every day Unknown Immunizations Description No Information Available Vital Signs Description No Information Available Results Description No Information Available Procedures Date Code Description Status 12/15/2019 10455 Pare Hyperkeratotic Lesion, 2-4 Completed 10/06/2019 09370 Pare Hyperkeratotic Lesion, 2-4 Completed Medical Devices Description No Information Available Encounters Description No Information Available Assessments Date Code Description Provider 12/15/2019 E11.51 Type 2 diabetes gabriela itus with diabetic peripheral angiopathy without gangrene Tila Mcneal 12/15/2019 L60.3 Nail dystrophy Tila Mcneal 12/15/2019 L84 Corns and callosities Angeli Will Tila saavedra 12/15/2019 M79.671 Pain in right foot Tila Kiran 10/06/2019 E11.51 Type 2 diabetes gabriela itus with diabetic peripheral angiopathy without gangrene Tila Mcneal 10/06/2019 L60.3 Nail dystrophy Tila Mcneal 10/06/2019 L84 Corns and callosities Angeli Will Tila saavedra 10/06/2019 M79.671 Pain in right foot Tila Kiran Plan of Treatment Future Appointment(s):* 09/25/2020 9:00 am - Tila Mcneal at [facility] Podiat[facility] Functional Status Description No Information Available Mental Status Description No Information Available Referrals Description No Information Available
--- OUTSIDE RECORDS SUMMARY | 2020-04-14 09:28 | CCD | Continuity of Care Document ---
Author Author Ofelia BROWN MD Organization Unknown Address [address] [place] [address], [address] [address] Phone [phone] Care Team Providers [employer] Workflow Consultant Name Role Phone Marc Aj AUTM [phone] Problems Description No Information Available Social History [...] Date Facility Test Result H/L Range Note Order 02/16/2020 [facility] nter Surgery <pending> Procedures Date Code Description Status 02/14/2020 93884 X-Ray Hip Unilateral With Pelvis 2-3 Views Completed Medical Devices Description No Information Available Encounters Type Date Location Provider Dx Diagnosis Office Visit 02/14/2020 1:15p [place] Yoandy Brown MD M16.11 Unilateral primary osteoarthritis, right hip Assessments Date Code Description Provider 02/14/2020 M16.11 Unilateral primary osteoarthriti s, right hip Yoandy Brown MD Plan of Treatment 02/14/2020 - Yoandy Brown MD* M16.11 Unilateral primary osteoarthritis, right hip* Follow up:* post op Functional Status Description No Information Available Mental Status Description No Information Available Referrals Refer to Reason for Referral Status Appt Date Yoandy Brown MD SURGERY NO AUTH REQUIRED FOR RT TOTAL HIP(72319) TO SURGERY NT Created [facility], [address] [place] [address] [phone]
--- OUTSIDE RECORDS SUMMARY | 2020-04-14 09:28 | CCD | Continuity of Care Document ---
Author Author Ofelia BROWN MD Organization Unknown Address [address] [facility], [address] [address] Phone [phone] Care Team Providers Care Offset Printing Operator Name Role Phone Marc Aj AUTM [phone] Problems Description No Information Available Social History [...] Result H/L Range Note Prothrombin Time/Inr 04/03/2020 [facility] C entr [address] [place] [address] (813)- - Prothrombin Time 12.3 seconds Normal 12.5-14.3 Inr 0.90 Normal 1 Laboratory test finding 03/24/2020 [facility] l Centr [address] [place] [address] (315)- - Erythrocyte Sedimentation Rate <pending> Xray 03/24/2020 [facility] [place] nter (315)- - Chest x-ray <pending> Order 03/24/2020 [facility] [place] nter EKG <pending> Order 02/16/2020 [facility] [place] nter Surgery <pending> 1 THERAPUTIC HUMAN INR VALUES INDICATIONS NORMAL RANGES PROPHYLAXIS/TREATMENT OF: VENOUS THROMBOSIS 2.0-3.0 PULMONARY EMBOLISM 2.0-3.0 PREVENTION OF SYSTEMIC EMBOLISM FROM: TISSUE HEART VALVES 2.0-3.0 ACUTE MYOCARDIAL INFARCTION 2.0-3.0 VALVULAR HEART DISEASE 2.0-3.0 ATRIAL FIBRILLATION 2.0-3.0 MECHANICAL VALVES(HIGH RISK) 2.5-3.5 RECURRENT MYOCARDIAL INFARCTION 2.5-3.5 Procedures Date Code Description Status 02/14/2020 21671 X-Ray Hip Unilateral With Pelvis 2-3 Views Completed Medical Devices Description No Information Available Encounters Type Date Location Provider Dx Diagnosis Office Visit 02/14/2020 1:15p [place] Yoandy Brown MD M16.11 Unilateral primary osteoarthritis, [...] SURGERY NO AUTH REQUIRED FOR RT TOTAL HIP(60240) TO SURGERY NT Created [address] [facility], [address] [place] [address] [phone]
--- OUTSIDE RECORDS SUMMARY | 2020-04-14 09:28 | CCD ---
Author Author [facility] Organization [facility] Address Unknown Phone Unavailable Care Team Providers Care Ux Design Lead Name Role Phone Ramirez, L Arianna PA Unavailable Unavailable Ramirez, L Arianna PA Unavailable Unavailable Ramirez, L Arianna PA Unavailable Unavailable Ramirez, L Arianna PA Unavailable Unavailable Ramirez, L Arianna PA Unavailable Unavailable Ramirez, L Arianna PA Unavailable Unavailable Ramirez, L Arianna PA Unavailable Unavailable Ramirez, L Arianna PA Unavailable Unavailable Ramirez, L Arianna PA Unavailable Unavailable Ramirez, L Arianna PA Unavailable Unavailable Ramirez, L Arianna PA Unavailable Unavailable Ramirez, L Raianna PA Unavailable Unavailable Ramirez, L Arianna PA Unavailable Unavailable Ramirez, L Arianna PA Unavailable Unavailable Ramirez, L Arianna PA Unavailable Unavailable Ramirez, L Arianna PA Unavailable Unavailable Ramirez, L Arianna PA Unavailable Unavailable Ramirez, L Arianna PA Unavailable Unavailable Ramirez, L Arianna PA Unavailable Unavailable Ramirez, L Arianna PA Unavailable Unavailable Ramirez, L Arianna PA Unavailable Unavailable Ramirez, L Arianna PA Unavailable Unavailable Ramirez, L Arianna PA Unavailable Unavailable Ramirez, L Arianna PA Unavailable Unavailable Ramirez, L Arinana PA Unavailable Unavailable Ramirez, L Arianna PA Unavailable Unavailable Ramirez, L Arianna PA Unavailable Unavailable Ramirez, L Arianna PA Unavailable Unavailable Ramirez, L Arianna PA Unavailable Unavailable Ramirez, L Arianna PA Unavailable Unavailable Ramirez, L Arianna PA Unavailable Unavailable Ramirez, L Arianna PA Unavailable Unavailable Ramirez, L Arianna PA Unavailable Unavailable Ramirez, L Arianna PA Unavailable Unavailable Ramirez, L Arianna PA Unavailable Unavailable Ramirez, L Arianna PA Unavailable Unavailable SARAH, J MIGUEL DPM PC Unavailable Unavailable SARAH, J MIGUEL [facility] Unavailable Unavailable SARAH, J MIGUEL [facility] Unavailable Unavailable SARAH, J MIGUEL [facility] Unavailable Unavailable SARAH, J MIGUEL [facility] Unavailable Unavailable SARAH, J MIGU[facility] Unavailable Unavailable SARAH, J M[facility] Unavailable Unavailable SARAH, J MIGUEL [facility] Unavailable Unavailable SARAH, J MIGUEL [facility] Unavailable Unavailable SARAH, J MIGUEL [facility] Unavailable Unavailable SARAH, J M[facility] Unavailable Unavailable SARAH, J M[facility] Unavailable Unavailable SARAH, J MIGU[facility] Unavailable Unavailable SARAH, J M[facility] Unavailable Unavailable SARAH, J M[facility] Unavailable Unavailable SARAH, J M[facility] Unavailable Unavailable SARAH, J M[facility] Unavailable Unavailable SARAH, J M[facility] Unavailable Unavailable SARAH, J MIGUEL [facility] Unavailable Unavailable SARAH, J [facility] Unavailable Unavailable SARAH, J [facility] Unavailable Unavailable SARAH, J [facility] Unavailable Unavailable SARAH, J [facility] Unavailable Unavailable SARAH, J [facility] Unavailable Unavailable SARAH, J [facility] Unavailable Unavailable SARAH, J [facility] Unavailable Unavailable Kevin, Hui Pitt MD Unavailable Unavailable Fish, Hui Pitt MD Unavailable Unavailable Fish, Hui Pitt MD Unavailable Unavailable Fish, Hui Pitt MD Unavailable Unavailable Fish, Hui Pitt MD Unavailable Unavailable Hui Brown MD Unavailable Unavailable Hui Brown MD Unavailable Unavailable Hui Brown MD Unavailable Unavailable Hui Brown MD Unavailable Unavailable Hui Brown MD Unavailable Unavailable Kevin, Hui Pitt MD Unavailable Unavailable Kevin, Hui Pitt MD Unavailable Unavailable Kevin, Hui Pitt MD Unavailable Unavailable Hui Brown MD Unavailable Unavailable Hui Brown MD Unavailable Unavailable Kevin, Hui Pitt MD Unavailable Unavailable Hui Brown MD Unavailable Unavailable Kevin, Hui Pitt MD Unavailable Unavailable Kevin, Hui Pitt MD Unavailable Unavailable Hui Brown MD Unavailable Unavailable Fish, Hui Pitt MD Unavailable Unavailable Fish, Hui Pitt MD Unavailable Unavailable Fish, B Yoandy STOCKTON Unavailable Unavailable Fish, B Yoandy STOCKTON Unavailable Unavailable Fish, Hui Pitt MD Unavailable Unavailable Fish, Hui Pitt MD Unavailable Unavailable Fish, B Yoandy STOCKTON Unavailable Unavailable Fish, B Yoandy STOCKTON Unavailable Unavailable Fish, B Yoandy STOCKTON Unavailable Unavailable Fish, B Yoandy STOCKTON Unavailable Unavailable Fish, B Yoandy STOCKTON Unavailable Unavailable Fish, B Yoandy STOCKTON Unavailable Unavailable Fish, B Yoandy STOCKTON Unavailable Unavailable Fish, B Yoandy STOCKTON Unavailable Unavailable Fish, B Yoandy STOCKTON Unavailable Unavailable Fish, B Yoandy STOCKTON Unavailable Unavailable Fish, B Yoandy STOCKTON Unavailable Unavailable Fish, B Yoandy STOCKTON Unavailable Unavailable Fish, B Yoandy STOCKTON Unavailable Unavailable Fish, B Yoandy STOCKTON Unavailable Unavailable Fish, B Yoandy STOCKTON Unavailable Unavailable Fish, B Yoandy STOCKTON Unavailable Unavailable Fish, B Yoandy STOCKTON Unavailable Unavailable Fish, B Yoandy STOCKTON Unavailable Unavailable Fish, B Yoandy STOCKTON Unavailable Unavailable Fish, B Yoandy STOCKTON Unavailable Unavailable Fish, B Yoandy STOCKTON Unavailable Unavailable Fish, B Yoandy STOCKTON Unavailable Unavailable Fish, B Yoandy STOCKTON Unavailable Unavailable Fish, B Yoandy STOCKTON Unavailable Unavailable Fish, B Yoandy STOCKTON Unavailable Unavailable Fish, B Yoandy STOCKTON Unavailable Unavailable Fish, B Yoandy STOCKTON Unavailable Unavailable Strong, M Barratt PA Unavailable Unavailable Strong, M Barratt PA Unavailable Unavailable Strong, M Barratt PA Unavailable Unavailable Strong, M Barratt PA Unavailable Unavailable Strong, M Barratt PA Unavailable Unavailable Strong, M Barratt PA Unavailable Unavailable Strong, M Barratt PA Unavailable Unavailable Strong, M Barratt PA Unavailable Unavailable Strong, M Barratt PA Unavailable Unavailable Storng, M Barratt PA Unavailable Unavailable Strong, M Barratt PA Unavailable Unavailable Strong, M Barratt PA Unavailable Unavailable Strong, M Barratt PA Unavailable Unavailable Strong, M Barratt PA Unavailable Unavailable Strong, M Barratt PA Unavailable Unavailable Strong, M Barratt PA Unavailable Unavailable Strong, M Barratt PA Unavailable Unavailable Strong, M Barratt PA Unavailable Unavailable Strong, M Barratt PA Unavailable Unavailable Strong, M Barratt PA Unavailable Unavailable Strong, M Barratt PA Unavailable Unavailable Strong, M Barratt PA Unavailable Unavailable Strong, M Barratt PA Unavailable Unavailable Strong, M Barratt PA Unavailable Unavailable Strong, M Barratt PA Unavailable Unavailable Strong, M Barratt PA Unavailable Unavailable Strong, M Barratt PA Unavailable Unavailable TONTARSKI, G DARSHANA PA Unavailable Unavailable TONTARSKI, G DARSHANA PA Unavailable Unavailable TONTARSETHAN, G DARSHANA PA Unavailable Unavailable TONTARSKI, G DARSHANA PA Unavailable Unavailable TONTARSETHAN, G DARSHANA PA Unavailable Unavailable TONTARSKI, G DARSHANA PA Unavailable Unavailable TONTARSKI, G DARSHANA PA Unavailable Unavailable TONTARSKI, G DARSHANA PA Unavailable Unavailable TONTARSKI, G DARSHANA PA Unavailable Unavailable TONTARSKI, G DARSHANA PA Unavailable Unavailable TONTARSKI, G DARSHANA PA Unavailable Unavailable TONTARSKI, G DARSHANA PA Unavailable Unavailable TONTARSETHAN, G DARSHANA PA Unavailable Unavailable TONTARSETHAN, G DARSHANA PA Unavailable Unavailable TONTARSETHAN, G DARSHANA PA Unavailable Unavailable TONTARSETHAN, G DARSHANA PA Unavailable Unavailable TONTARSETHAN, G DARSHANA PA Unavailable Unavailable TONTARSETHAN, G DARSHANA PA Unavailable Unavailable TONTARSETHAN, G DARSHANA PA Unavailable Unavailable TONTARSETHAN, G DARSHANA PA Unavailable Unavailable TONTARSKI, G DARSHANA PA Unavailable Unavailable TONTARSETHAN, G DARSHANA PA Unavailable Unavailable TONTARSETHAN, G DARSHANA PA Unavailable Unavailable TONTARSETHNA, G DARSHANA PA Unavailable Unavailable TONTARSETHAN, G DARSHANA PA Unavailable Unavailable TONTARSETHAN, G DARSHANA PA Unavailable Unavailable TONTARSETHAN, G DARSHANA PA Unavailable Unavailable TONTARSETHAN, G DARSHANA PA Unavailable Unavailable TONTARSETHAN, G DARSHANA PA Unavailable Unavailable TONTARSETHAN, G DARSHANA PA Unavailable Unavailable TONTARSETHAN, G DARSHANA PA Unavailable Unavailable TONTARSETHAN, G DARSHANA PA Unavailable Unavailable TONTARSKI, G DARSHANA PA Unavailable Unavailable TONTARSETHAN, G DARSHANA PA Unavailable Unavailable TONTARSETHAN, G DARSHANA PA Unavailable Unavailable TONTARSETHAN, G DARSHANA PA Unavailable Unavailable TONTARSETHAN, G DARSHANA PA Unavailable Unavailable TONTARSETHAN, G DARSHANA PA Unavailable Unavailable TONTARSETHAN, G DARSHANA PA Unavailable Unavailable TONTARSETHAN, G DARSHANA PA Unavailable Unavailable TONTARSETHAN, G DARSHANA PA Unavailable Unavailable TONTARSKI, G DARSHANA PA Unavailable Unavailable TONTARSKI, G DARSHANA PA Unavailable Unavailable TONTARSKI, G DARSHANA PA Unavailable Unavailable TONTARSKI, G DARSHANA PA Unavailable Unavailable TONTARSKI, G DARSHANA PA Unavailable Unavailable TONTARSKI, G DARSHANA PA Unavailable Unavailable TONTARSKI, G DARSHANA PA Unavailable Unavailable Doremus, E Delilah PA Unavailable Unavailable Doremus, E Delilah PA Unavailable Unavailable Doremus, E Delilah PA Unavailable Unavailable Doremus, E Delilah PA Unavailable Unavailable Doremus, E Delilah PA Unavailable Unavailable Doremus, E Delilah PA Unavailable Unavailable Doremus, E Delilah PA Unavailable Unavailable Doremus, E Delilah PA Unavailable Unavailable Doremus, E Delilah PA Unavailable Unavailable Doremus, E Delilah PA Unavailable Unavailable Doremus, E Delilah PA Unavailable Unavailable Doremus, E Delilah PA Unavailable Unavailable Doremus, E Delilah PA Unavailable Unavailable Doremus, E Delilah PA Unavailable Unavailable Doremus, E Delilah PA Unavailable Unavailable Doremus, E Delilah PA Unavailable Unavailable Doremus, E Delilah PA Unavailable Unavailable Doremus, E Delilah PA Unavailable Unavailable Doremus, E Delilah PA Unavailable Unavailable Leblanc, Enma [facility]ER Unavailable Unavailable Leblanc, Enma [employer]LAND [employer]ARMER Unavailable Unavailable Leblanc, Enma [employer]ER Unavailable Unavailable Leblanc, Enma [employer]ER Unavailable Unavailable Leblanc, Enma [employer]ER Unavailable Unavailable Leblanc, Enma [employer]ARMER Unavailable Unavailable Leblanc, Enma [employer]LAND FARMER Unavailable Unavailable Leblanc, Enma [employer]YLAND FARMER Unavailable Unavailable Leblanc, Enma [employer]YLAND FARMER Unavailable Unavailable Leblanc, Enma [employer] FARMER Unavailable Unavailable Leblanc, Enma [employer]ARMER Unavailable Unavailable Leblanc, Enma DRYLAND FARMER Unavailable Unavailable Leblanc, Enma DRYLAND FARMER Unavailable Unavailable Leblanc, Enma DRYLAND FARMER Unavailable Unavailable Leblanc, Enma [employer]YLAND FARMER Unavailable Unavailable Leblanc, Enma DRYLAND FARMER Unavailable Unavailable Leblanc, Enma DRYLAND FARMER Unavailable Unavailable Leblanc, Enma DRYLAND FARMER Unavailable Unavailable Leblanc, Enma DRYLAND FARMER Unavailable Unavailable Leblanc, Enma DRYLAND FARMER Unavailable Unavailable Leblanc, Enma DRYLAND FARMER Unavailable Unavailable Leblanc, Enma DRYLAND FARMER Unavailable Unavailable Leblanc, Enma DRYLAND FARMER Unavailable Unavailable Leblanc, Enma DRYLAND FARMER Unavailable Unavailable Leblanc, Enma DRYLAND FARMER Unavailable Unavailable Leblanc, Enma DRYLAND FARMER Unavailable Unavailable Leblanc, Enma DRYLAND FARMER Unavailable Unavailable Leblanc, Enma DRYLAND FARMER Unavailable Unavailable Leblanc, Enma DRYLAND FARMER Unavailable Unavailable Leblanc, Enma DRYLAND FARMER Unavailable Unavailable Leblanc, Enma DRYLAND FARMER Unavailable Unavailable Leblanc, Enma DRYLAND FARMER Unavailable Unavailable Leblanc, Enma DRYLAND FARMER Unavailable Unavailable Leblanc, Enma DRYLAND FARMER Unavailable Unavailable Leblanc, Enma DRYLAND FARMER Unavailable Unavailable Leblanc, Enma DRYLAND FARMER Unavailable Unavailable Leblanc, Enma DRYLAND FARMER Unavailable Unavailable Leblanc, Enma DRYLAND FARMER Unavailable Unavailable Leblanc, Enma DRYLAND FARMER Unavailable Unavailable Leblanc, Enma DRYLAND FARMER Unavailable Unavailable Leblanc, Enma DRYLAND FARMER Unavailable Unavailable Leblanc, Enma DRYLAND FARMER Unavailable Unavailable Leblanc, Enma DRYLAND FARMER Unavailable Unavailable Leblanc, Enma DRYLAND FARMER Unavailable Unavailable Leblanc, Enma DRYLAND FARMER Unavailable Unavailable Leblanc, Enma DRYLAND FARMER Unavailable Unavailable Leblanc, Enma DRYLAND FARMER Unavailable Unavailable Leblanc, Enma DRYLAND FARMER Unavailable Unavailable Leblanc, Enma DRYLAND FARMER Unavailable Unavailable Leblanc, Enma DRYLAND FARMER Unavailable Unavailable Leblanc, Enma DRYLAND FARMER Unavailable Unavailable Leblanc, Enma DRYLAND FARMER Unavailable Unavailable Leblanc, Enma DRYLAND FARMER Unavailable Unavailable Leblanc, Enma DRYLAND FARMER Unavailable Unavailable Leblanc, Enma DRYLAND FARMER Unavailable Unavailable Leblanc, Enma DRYLAND FARMER Unavailable Unavailable Leblanc, Enma DRYLAND FARMER Unavailable Unavailable Leblanc, Enma DRYLAND FARMER Unavailable Unavailable Leblanc, Enma DRYLAND FARMER Unavailable Unavailable Leblanc, Enma DRYLAND FARMER Unavailable Unavailable Leblanc, Enma DRYLAND FARMER Unavailable Unavailable Leblanc, Enma DRYLAND FARMER Unavailable Unavailable Leblanc, Enma DRYLAND FARMER Unavailable Unavailable Leblanc, Enma DRYLAND FARMER Unavailable Unavailable Leblanc, Enma DRYLAND FARMER Unavailable Unavailable Leblanc, Enma DRYLAND FARMER Unavailable Unavailable Leblanc, Enma DRYLAND FARMER Unavailable Unavailable Leblanc, Enma DRYLAND FARMER Unavailable Unavailable Re-disclosure Warning The records that you are about to access may contain information from federally-assisted alcohol or drug abuse programs. If such information is present, then the following federally mandated warning applies: This information has been disclosed to you from records protected by federal confidentiality rules (42 CFR part 2). The federal rules prohibit you from making any further disclosure of this information unless further disclosure is expressly permitted by the written consent of the person to whom it pertains or as otherwise permitted by 42 CFR part 2. A general authorization for the release of medical or other information is NOT sufficient for this purpose. The Federal rules restrict any use of the information to criminally investigate or prosecute any alcohol or drug abuse patient.The records that you are about to access may contain highly sensitive health information, the redisclosure of which is protected by Article 27-F of the [facility] Public Health law. If you continue you may have access to information: Regarding HIV / AIDS; Provided by facilities licensed or operated by the [facility] Office of Mental Health; or Provided by the [facility] Office for People With Developmental Disabilities. If such information is present, then the following [facility] mandated warning applies: This information has been disclosed to you from confidential records which are protected by state law. State law prohibits you from making any further disclosure of this information without the specific written consent of the person to whom it pertains, or as otherwise permitted by law. Any unauthorized further disclosure in violation of state law may result in a fine or fdc sentence or both. A general authorization for the release of medical or other information is NOT sufficient authorization for further disc losure. Allergies and Adverse Reactions Type Description Substance Reaction Status Data Source(s ) Penicillin (For Allergies Use Only) Penicillin (For Allergie s Use Only) Penicillin (For Allergies Use Only) pass out, vomitting Active eCW 1 ([facility]) Family History Family Member Name Family Member Gender Family Member Status Date o f Status Description Data Source(s) Unknown Male Problem [facility] ([facility]) Encounters Encounter Providers Location Date Indications Data Source(s ) Office Visit Attender: Janine DONOVAN Physical Therapy 02:00:00 PM EST [facility] ([facility]) Office Visit Attender: DARSHANA DONOVAN [facility] 04/06/2020 01:00:00 PM EST [facility] ([facility]) Outpatient Attender: MIGUEL SMITH [facility] 03/27/2020 09:22:00 AM EST - 03/27/2020 09:22:00 AM EST [facility] Outpatient Attender: Arianna LUCIO.[email or web address]-SJP.MILAN 08/2020 12:00:00 AM EST - 03/08/2020 12:20:14 PM EST [facility] Office Visit Attender: Yoandy Brown MD Physical Therapy 2019 12:15:00 PM EST [facility] ([facility]) Office Visit Attender: DARSHANA DONOVAN [facility] 02/10/2020 08:00:00 AM EST [facility] ([facility]) Outpatient Attender: MIGUEL SMITH [facility] 12/15/2019 08:48:00 AM EDT - 12/15/2019 08:48:00 AM EDT [facility] Outpatient Attender: MIGUEL SMITH D[facility] 10/06/2019 08:28:00 AM EDT - 10/06/2019 08:28:00 AM EDT [facility] Outpatient Attender: Enma Leblanc [facility] 09/14/2019 11:48:02 AM EDT [facility] Outpatient Attender: Enma Leblanc [facility] 08/10/2019 07:34:52 PM EDT [facility] Outpatient Attender: Enma Leblanc [facility] 07/31/2019 12:09:56 AM EDT [facility] Outpatient Attender: Arianna DONOVAN SJSana.[email or web address]-SJP.MILAN 12:00:00 AM EDT - 07/27/2019 10:18:51 AM EDT [facility] Outpatient Attender: MIGUEL SMITH D[facility] 06/24/2019 02:42:00 PM EDT - 06/24/2019 02:42:00 PM EDT [facility] Outpatient Referrer: Delilah DONOVAN 06/11/2019 06:01:0 0 AM EDT [facility] [address] [place] [address] 05/30/2019 12:00:00 AM EDT eCW1 ([facility]) [facility] [address] [place] [address] 05/28/2019 12:00:00 AM EDT eCW1 ([facility]) [facility] [address] [place] [phone] 05/25/2019 12:00:00 AM EDT eCW1 ([facility]) [facility] [address] [place] [address] 05/24/2019 12:00:00 AM EDT eCW1 ([facility]) Outpatient Referrer: Arianna ROBERT-SJPJessicaMILAN 02/2020 12:00:00 AM EDT [facility] Outpatient Referrer: Delilah DONOVAN 04/07/2019 10:16:0 0 AM EST [facility] Outpatient Referrer: Delilah DONOVAN 03/25/2019 03:40:0 0 PM EST [facility] Outpatient Referrer: Delilah DONOVAN 03/22/2019 06:07:0 0 AM EST [facility] Outpatient Attender: Arianna ROBERT-SJP.MILAN 10:27:35 AM EST - 01/27/2019 11:40:32 AM EST [facility] Medications Medication Brand Name Start Date Product Form Dose Route Admi nistrative Instructions Pharmacy Instructions Status Indications Reaction Description Data Source(s) 4 % 04/05/2020 12:00:00 AM EST liquid 118 USE DIRECTED IN THE SHOWER ONCE DAILY FOR 5 DAYS BEFORE SURGERY USE DIRECTED IN THE SHOWER ONCE DAILY FOR 5 DAYS BEFORE SURGERY SOLD: 04/06/2020 [facility] 2 % 04/05/2020 12:00:00 AM EST ointment 22 APPLY A PEA SIZED AMOUNT TO NASAL PASSAGES THREE TIMES A DAY FOR 5 DAYS PRIOR TO SURGERY APPLY A PEA SIZED AMOUNT TO NASAL PASSAGES THREE TIMES A DAY FOR 5 DAYS PRIOR TO SURGERY SOLD: 04/06/2020 [facility] Mupirocin 0.02 MG/MG Topical Ointment Mupirocin 04/04/2020 12:00:00 AM EST active [facility] ([facility] chlorhexidine gluconate 40 MG/ML Medicated Liquid Soap [Hibi clens] Hibiclens 04/04/2020 12:00:00 AM EST active [facility] ([facility]) chlorhexidine gluconate 40 MG/ML Medicated Liquid Soap [Hibi clens] Hibiclens 04/03/2020 12:00:00 AM EST completed [facility] ([facility]) Mupirocin 0.02 MG/MG Topical Ointment Mupirocin 04/03/2020 12:00:00 AM EST completed [facility] ([facility]) BLOOD SUGAR DIAGNOSTIC 03/03/2020 12:00:00 AM EST strip 100 USE TO TEST BLOOD SUGARS ONCE DAILY USE TO TEST BLOOD SUGARS ONCE DAILY SOLD: 03/04/2020 [facility] ezetimibe 10 MG Oral Tablet EZETIMIBE 02/11/2020 12:00:00 AM EST table t 90 TAKE ONE TABLET BY MOUTH EVERY DAY TAKE ONE TABLET BY MOUTH EVERY DAY SOLD: 02/13/2020 [facility] 50 mg 02/11/2020 12:00:00 AM EST tablet 40 TAKE ONE TABLET BY MOUTH FOUR TIMES A DAY NEEDED FOR PAIN, MAXIMUM DAILY DOSE = FOUR TABLETS TAKE ONE TABLET BY MOUTH FOUR TIMES A DAY NEEDED FOR PAIN, MAXIMUM DAILY DOSE = FOUR TABLETS SOLD: 02/13/2020 [facility] carvedilol 25 MG Oral Tablet CARVEDILOL 02/11/2020 12:00:00 AM EST tab let 180 TAKE ONE TABLET BY MOUTH TWICE A DAY TAKE ONE TABLET BY MOUTH TWICE A DAY SOLD: 02/13/2020 [facility] atorvastatin 40 MG Oral Tablet ATORVASTATIN CALCIUM 02/11/2020 1 2:00:00 AM EST tablet 90 TAKE ONE TABLET BY MOUTH EVERY D AY TAKE ONE TABLET BY MOUTH EVERY DAY SOLD: 02/13/2020 [facility] 0.4-0.3 % 02/08/2020 12:00:00 AM EST drops 15 INSTILL ONE DROP INTO EACH EYE FOUR TIMES A DAY NEEDED INSTILL ONE DROP INTO EACH EYE FOUR TIME S A DAY NEEDED SOLD: 02/10/2020 [facility] 0.005 % 02/07/2020 12:00:00 AM EST drops 2 INSTILL ONE DROP INTO EACH EYE ONCE DAILY AT BEDTIME INSTILL ONE DROP INTO EACH EYE ONCE DAILY AT BEDTIME S OLD: 02/10/2020 [facility] 60 mg 02/05/2020 12:00:00 AM EST tablet 60 TAKE ONE TABLET BY MOUTH TWICE A DAY TAKE ONE TABLET BY MOUTH TWICE A DAY SOLD: 02/05/2020 [facility] 60 mg 02/05/2020 12:00:00 AM EST tablet 60 TAKE ONE TABLET BY MOUTH TWICE A DAY TAKE ONE TABLET BY MOUTH TWICE A DAY SOLD: 04/03/2020 [facility] 60 mg 02/05/2020 12:00:00 AM EST tablet 60 TAKE ONE TABLET BY MOUTH TWICE A DAY TAKE ONE TABLET BY MOUTH TWICE A DAY SOLD: 03/04/2020 [facility] Ticagrelor 60 MG Oral Tablet Ticagrelor (BRILINTA) 60 MG TABS Ticagrelor (BRILINTA) 60 MG TABS 02/02/2020 12:00:00 AM EST 60 mg Oral active Take 60 mg by mouth 2 (two) times a day [facility] 300 mg 02/01/2020 12:00:00 AM EST tablet 30 TAKE ONE TABLET BY MOUTH EVERY DAY TAKE ONE TABLET BY MOUTH EVERY DAY SOLD: 04/03/2020 [facility] 300 mg 02/01/2020 12:00:00 AM EST tablet 30 TAKE ONE TABLET BY MOUTH EVERY DAY TAKE ONE TABLET BY MOUTH EVERY DAY SOLD: 03/04/2020 [facility] 300 mg 02/01/2020 12:00:00 AM EST tablet 30 TAKE ONE TABLET BY MOUTH EVERY DAY TAKE ONE TABLET BY MOUTH EVERY DAY SOLD: 02/01/2020 [facility] atorvastatin 40 MG Oral Tablet ATORVASTATIN CALCIUM 02/01/2020 1 2:00:00 AM EST tablet 30 TAKE ONE TABLET BY MOUTH EVERY D AY TAKE ONE TABLET BY MOUTH EVERY DAY SOLD: 02/01/2020 [facility] 10 mg 02/01/2020 12:00:00 AM EST tablet 30 TAKE ONE TABLET BY MOUTH EVERY DAY TAKE ONE TABLET BY MOUTH EVERY DAY SOLD: 04/03/2020 [facility] 10 mg 02/01/2020 12:00:00 AM EST tablet 30 TAKE ONE TABLET BY MOUTH EVERY DAY TAKE ONE TABLET BY MOUTH EVERY DAY SOLD: 02/01/2020 [facility] carvedilol 25 MG Oral Tablet CARVEDILOL 02/01/2020 12:00:00 AM EST tab let 60 TAKE ONE TABLET BY MOUTH TWICE A DAY TAKE ONE TABLET BY MOUTH TWICE A DAY SOLD: 02/01/2020 [facility] ezetimibe 10 MG Oral Tablet EZETIMIBE 02/01/2020 12:00:00 AM EST table t 30 TAKE ONE TABLET BY MOUTH EVERY DAY TAKE ONE TABLET BY MOUTH EVERY DAY SOLD: 02/01/2020 [facility] BLOOD SUGAR DIAGNOSTIC 12/31/2019 12:00:00 AM EDT strip 100 USE TO TEST BLOOD SUGARS ONCE DAILY USE TO TEST BLOOD SUGARS ONCE DAILY SOLD: 01/01/2020 [facility] 50 mg 11/12/2019 12:00:00 AM EDT tablet 28 TAKE ONE TABLET BY MOUTH FOUR TIMES A DAY NEEDED FOR PAIN ,MAXIMUM DAILY DOSE = 4 TABLETS TAKE ONE TABLET BY MOUTH FOUR TIMES A DAY NEEDED FOR PAIN ,MAXIMUM DAILY DOSE = 4 TABLETS SOLD: 11/20/2019 [facility] 10 mg 11/12/2019 12:00:00 AM EDT tablet 90 TAKE ONE TABLET BY MOUTH EVERY DAY TAKE ONE TABLET BY MOUTH EVERY DAY SOLD: 11/20/2019 [facility] BLOOD SUGAR DIAGNOSTIC 10/26/2019 12:00:00 AM EDT strip 100 USE TO TEST BLOOD SUGARS ONCE DAILY USE TO TEST BLOOD SUGARS ONCE DAILY SOLD: 10/29/2019 [facility] 300 mg 10/26/2019 12:00:00 AM EDT tablet 30 TAKE ONE TABLET BY MOUTH EVERY DAY TAKE ONE TABLET BY MOUTH EVERY DAY SOLD: 01/01/2020 [facility] 300 mg 10/26/2019 12:00:00 AM EDT tablet 30 TAKE ONE TABLET BY MOUTH EVERY DAY TAKE ONE TABLET BY MOUTH EVERY DAY SOLD: 12/02/2019 [facility] 300 mg 10/26/2019 12:00:00 AM EDT tablet 30 TAKE ONE TABLET BY MOUTH EVERY DAY TAKE ONE TABLET BY MOUTH EVERY DAY SOLD: 11/02/2019 [facility] BLOOD SUGAR DIAGNOSTIC 09/11/2019 12:00:00 AM EDT strip 100 USE TO TEST BLOOD SUGARS ONCE DAILY USE TO TEST BLOOD SUGARS ONCE DAILY SOLD: 09/11/2019 [facility] BLOOD SUGAR DIAGNOSTIC 09/08/2019 12:00:00 AM EDT strip 100 USE TO TEST BLOOD SUGARS ONCE DAILY USE TO TEST BLOOD SUGARS ONCE DAILY SOLD: 09/10/2019 [facility] 0.005 % 09/03/2019 12:00:00 AM EDT drops 2 INSTILL ONE DROP INTO THE AFFECTED EYE IN THE EVENING INSTILL ONE DROP INTO THE AFFECTED EYE I N THE EVENING SOLD: 09/05/2019 [facility] 10 mg 08/10/2019 12:00:00 AM EDT tablet 90 TAKE ONE TABLET BY MOUTH ONCE A DAY TAKE ONE TABLET BY MOUTH ONCE A DAY SOLD: 08/25/2019 [facility] 40 mg 08/10/2019 12:00:00 AM EDT tablet 90 TAKE ONE TABLET BY MOUTH EVERY DAY TAKE ONE TABLET BY MOUTH EVERY DAY SOLD: 08/25/2019 [facility] carvedilol 25 MG Oral Tablet CARVEDILOL 08/10/2019 12:00:00 AM EDT tab let 180 TAKE ONE TABLET BY MOUTH TWICE A DAY TAKE ONE TABLET BY MOUTH TWICE A DAY SOLD: 08/25/2019 [facility] 60 mg 08/09/2019 12:00:00 AM EDT tablet 60 TAKE ONE TABLET BY MOUTH TWICE A DAY TAKE ONE TABLET BY MOUTH TWICE A DAY SOLD: 11/09/2019 [facility] 60 mg 08/09/2019 12:00:00 AM EDT tablet 60 TAKE ONE TABLET BY MOUTH TWICE A DAY TAKE ONE TABLET BY MOUTH TWICE A DAY SOLD: 01/01/2020 [facility] 60 mg 08/09/2019 12:00:00 AM EDT tablet 180 TAKE ONE TABLET BY MOUTH TWICE A DAY TAKE ONE TABLET BY MOUTH TWICE A DAY SOLD: 08/11/2019 [facility] 60 mg 08/09/2019 12:00:00 AM EDT tablet 60 TAKE ONE TABLET BY MOUTH TWICE A DAY TAKE ONE TABLET BY MOUTH TWICE A DAY SOLD: 12/07/2019 [facility] 300 mg 07/31/2019 12:00:00 AM EDT tablet 30 TAKE ONE TABLET BY MOUTH EVERY DAY TAKE ONE TABLET BY MOUTH EVERY DAY SOLD: 09/30/2019 [facility] 300 mg 07/31/2019 12:00:00 AM EDT tablet 30 TAKE ONE TABLET BY MOUTH EVERY DAY TAKE ONE TABLET BY MOUTH EVERY DAY SOLD: 08/31/2019 [facility] 300 mg 07/31/2019 12:00:00 AM EDT tablet 30 TAKE ONE TABLET BY MOUTH EVERY DAY TAKE ONE TABLET BY MOUTH EVERY DAY SOLD: 07/31/2019 [facility] BLOOD SUGAR DIAGNOSTIC 07/24/2019 12:00:00 AM EDT strip 100 USE TO TEST BLOOD SUGARS ONCE DAILY USE TO TEST BLOOD SUGARS ONCE DAILY SOLD: 07/24/2019 [facility] BLOOD SUGAR DIAGNOSTIC 06/02/2019 12:00:00 AM EDT strip 100 USE TO TEST BLOOD SUGARS ONCE DAILY USE TO TEST BLOOD SUGARS ONCE DAILY SOLD: 06/02/2019 [facility] 100 mg 05/24/2019 12:00:00 AM EDT capsule 20 TAKE ONE CAPSULE BY MOUTH EVERY 12 HOURS FOR 10 DAYS TAKE ONE CAPSULE BY MOUTH EVERY 12 HOURS FOR 10 DAYS S OLD: 05/24/2019 [facility] albuterol (PROVENTIL HFA;VENTOLIN HFA) 108 (90 Base) M CG/ACT inhaler 2816-0549-96 05/24/2019 12:00:00 AM EDT 2 {puff} aborted 2 puffs [facility] 200 ACTUAT Albuterol 0.09 MG/ACTUAT [place] red Dose Inhaler [ProAir] ProAir HFA 108 (90 Base) MCG/ACT ProAir HFA 108 (90 Base) MCG/ACT 05/24/2019 12:00:00 AM EDT active 2 puffs as neede d eCW1 ([facility]) doxycycline hyclate 100 MG Oral Capsule Doxycycline Hy clate 100 MG Doxycycline Hyclate 100 MG 05/24/2019 12:00:00 AM EDT active 1 capsule eCW1 ([facility]) 90 mcg/actuation 05/24/2019 12:00:00 AM EDT HFA aerosol inha ler 8 INHALE 2 PUFFS EVERY 4 HOURS NEEDED INHALE 2 PUFFS EVERY 4 HOURS NEEDED SOLD: 05/24/2019 [facility] canagliflozin 300 MG Oral Tablet [Invokana] INVOKANA 3 00 MG TABS INVOKANA 300 MG TABS 04/20/2019 12:00:00 AM EST 1 {tbl} Oral active Take 1 tablet by mouth daily [facility] 300 mg 04/20/2019 12:00:00 AM EST tablet 90 TAKE ONE TABLET BY MOUTH EVERY DAY TAKE ONE TABLET BY MOUTH EVERY DAY SOLD: 05/02/2019 [facility] 40 mg 04/19/2019 12:00:00 AM EST tablet 90 TAKE ONE TABLET BY MOUTH EVERY DAY TAKE ONE TABLET BY MOUTH EVERY DAY SOLD: 04/22/2019 [facility] Amlodipine 10 MG Oral Tablet amLODIPine (NORVASC) 10 M G tablet amLODIPine (NORVASC) 10 MG tablet 04/19/2019 12:00:00 AM EST 10 mg Oral active Take 10 mg by mouth daily [facility] 10 mg 04/19/2019 12:00:00 AM EST tablet 90 TAKE ONE TABLET BY MOUTH EVERY DAY TAKE ONE TABLET BY MOUTH EVERY DAY SOLD: 04/22/2019 [facility] 50 mg 04/19/2019 12:00:00 AM EST tablet 28 TAKE ONE TABLET BY MOUTH FOUR TIMES A DAY NEEDED FOR PAIN, MAXIMUM DAILY DOSE = FOUR TABLETS TAKE ONE TABLET BY MOUTH FOUR TIMES A DAY NEEDED FOR PAIN, MAXIMUM DAILY DOSE = FOUR TABLETS SOLD: 09/10/2019 [facility] 10 mg 04/19/2019 12:00:00 AM EST tablet 90 TAKE ONE TABLET BY MOUTH EVERY DAY TAKE ONE TABLET BY MOUTH EVERY DAY SOLD: 04/22/2019 [facility] 50 mg 04/19/2019 12:00:00 AM EST tablet 28 TAKE ONE TABLET BY MOUTH FOUR TIMES A DAY NEEDED FOR PAIN, MAXIMUM DAILY DOSE = FOUR TABLETS TAKE ONE TABLET BY MOUTH FOUR TIMES A DAY NEEDED FOR PAIN, MAXIMUM DAILY DOSE = FOUR TABLETS SOLD: 07/15/2019 [facility] 50 mg 04/19/2019 12:00:00 AM EST tablet 28 TAKE ONE TABLET BY MOUTH FOUR TIMES A DAY NEEDED FOR PAIN, MAXIMUM DAILY DOSE = FOUR TABLETS TAKE ONE TABLET BY MOUTH FOUR TIMES A DAY NEEDED FOR PAIN, MAXIMUM DAILY DOSE = FOUR TABLETS SOLD: 04/22/2019 [facility] carvedilol 25 MG Oral Tablet CARVEDILOL 04/19/2019 12:00:00 AM EST tab let 180 TAKE ONE TABLET BY MOUTH TWICE A DAY TAKE ONE TABLET BY MOUTH TWICE A DAY SOLD: 04/22/2019 [facility] 5 mg 03/10/2019 12:00:00 AM EST tablet 90 TAKE ONE TABLET BY MOUTH EVERY DAY TAKE ONE TABLET BY MOUTH EVERY DAY SOLD: 03/11/2019 [facility] 60 mg 10/08/2018 12:00:00 AM EDT tablet 60 TAKE ONE TABLET BY MOUTH TWICE A DAY TAKE ONE TABLET BY MOUTH TWICE A DAY SOLD: 04/02/2019 [facility] 60 mg 10/08/2018 12:00:00 AM EDT tablet 60 TAKE ONE TABLET BY MOUTH TWICE A DAY TAKE ONE TABLET BY MOUTH TWICE A DAY SOLD: 06/01/2019 [facility] Insurance Providers Payer name Policy type / Coverage type Policy ID Covered republican ID Covered republican's relationship to rhodes Policy [place] Plan Information MEDICARE [id number] SP [id number] MEDICARE [id number] MEDICARE PART A [facility] [id number] MEDICARE [id number] MEDICARE [id number] Araceli [id number] [id number] Medicaid P [id number] S [id number] [facility] [id number] SP [id number] [facility] MEDICARE [id number] Araceli [id number] MEDICAID [id number] SP [id number] MEDICARE PART A -CLINIC [id number] 18 [id number] [place] [place] [id number] 18 [id number] MEDICARE C [id number] S [id number] [id number] [facility]) O [id number] S [id number] MEDICAID M [id number] S [id number] MEDICARE [id number] SP [id number] P37 [facility] MEDICAID [id number] Araceli [id number] [facility] MEDICAID [id number] Araceli [id number] Medicaid [place] Medigap Part B [id number] Self [id number] Medicare [place] Medicare Primary [id number] Self [id number] Medicaid [place] Medig[place] Part B [id number] Self [id number] Medicare [place] Medicare Primary [id number] Self [id number] Medicaid [place] Medigap Part B [id number] Self [id number] [place] Primary [id number] Self [id number] MEDICARE [id number] SP [id number] D MEDICARE [id number] SP [id number] [employer]([place]) O [id number] S [id number] MEDICARE C [id number] S [id number] D [place] Part B [id number] Self [id number] [place] Primary [id number] Self [id number] [place] Part [place] [id number] Self [id number] [facility] Community Plan Commercial [id number] Self [id number] UNHC COMMUNITY PLAN MCDHMO [id number] SP [id number] [facility] MEDICAID [id number] Araceli [id number] [employer]([place]) O [id number] S [id number] [employer] COMMUNITY PLAN MCDO [id number] SP [id number] [facility]) O [id number] S [id number] Medicaid Dental S UNAVAILABLE S UN AVAILABLE Problems, Conditions, and Diagnoses Code Display Name Description Problem Type Effective Dates Data Source(s) 179690133 Ingrowing nail Ingrowing nail Problem 06/24/2019 12:00: 00 AM EDT [facility] ([facility]) [id number] Dystrophia unguium Dystrophia unguium Problem 12:00:00 AM EDT [facility] ([facility]) [id number] Pain in limb Pain in limb Problem 06/24/2019 12:00:00 A M EDT [facility] ([facility]) Type 2 diabetes mellitus with diabetic p eripheral angiopathy without gangrene Type 2 diabetes mellitus with diabetic peripheral angiopathy without gangrene Problem 06/24/2019 12:00:00 AM EDT [facility] ([facility]) [id number] 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 Problem 06/24/2019 12:00:00 AM EDT [facility] ( [facility]) Corns and callosities Corns and callosities Problem 06/24/2019 12:00:00 AM EDT [facility] ([facility]) [id number] Essential hypertension Essential hypertension Problem 06/24/2019 12:00:00 AM EDT [facility] ([facility]) [id number] Pain in left foot Pain in left foot Diagnosis 03/27/2020 09:22:00 AM [facility] T71344 Pain in right foot Pain in right foot Diagnosis 09:22:00 AM [facility] L84 Corns and callosities Corns and callosities Diagnosis 03/27/2020 09:22:00 AM [facility] L603 Nail dystrophy Nail dystrophy Diagnosis 03/27/2020 09:22: 00 AM [facility] E1151 Type 2 diabetes mellitus wit h diabetic peripheral angiopathy without gangrene Type 2 diabetes mellitus with diabetic p eripheral angiopathy without gangrene Diagnosis 03/27/2020 09:22:00 AM [facility] 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 Occlusion and stenosis of bilateral morrison Diagnosis 03/08/2020 11:11:29 AM [facility] E66.01 Morbid (severe) obesity due to excess ca lories Morbid (severe) obesity due to excess ca Diagnosis 03/08/2020 11:11:29 AM [facility] F17.200 Nicotine dependence, unspecified, uncomp licated Nicotine dependence, unspecified, uncomp Diagnosis 03/08/2020 11:11:29 AM [facility] E78.2 Mixed hyperlipidemia Mixed hyperlipidemia Diagnosis 03/08/2020 11:11:29 AM [facility] I25.5 Ischemic cardiomyopathy Ischemic cardiomyopathy Diagno sis 03/08/2020 11:11:29 AM [facility] Z98.61 Coronary angioplasty status Coronary angioplasty statu s Diagnosis 03/08/2020 11:11:29 AM [facility] I73.9 Peripheral vascular disease, unspecified Peripheral vascular disease, unspecified Diagnosis 03/08/2020 11:11:29 AM [facility] E11.9 Type 2 diabetes mellitus without complic ations Type 2 diabetes mellitus without complic Diagnosis 03/08/2020 11:11:29 AM [facility] I10 Essential (primary) hypertension Essential (primary) h ypertension Diagnosis 03/08/2020 11:11:29 AM [facility] Surgeries/Procedures Procedure Description Date Indications Data Source(s) X-Ray Hip Unilateral With Pelvis 2-3 Views 02/14/2020 12:00:00 AM EST [facility] ([facility] ) Pare Hyperkeratotic Lesion, 2-4 12/15/2019 12:00:00 AM EDT [facility] ([facility]) Pare Hyperkeratotic Lesion, 2-4 10/06/2019 12:00:00 AM EDT [facility] ([facility]) Pare Hyperkeratotic Lesion, 2-4 06/24/2019 12:00:00 AM EDT [facility] ([facility]) Results ID Date Data Source [id number] 04/09/2020 10:30:00 AM EST DOC Name Value Range Interpretation Code Description Data Amara rce(s) Supporting Document(s) SARS coronavirus 2 RNA Not Detected [facility] This lab was ordered by [facility] and reported by [facility]. ID Date Data Source [id number] 04/03/2020 09:52:00 AM EST [facility] (Hermilo Walton MD) Name Value Range Interpretation Code Description Data Amara rce(s) Supporting Document(s) Erythrocyte sedimentation rate by 2H Westergren method 49 mm/hr 0-30 Above high normal [facility] (Hermilo Walton MD) ID Date Data Source [id number] 04/03/2020 09:52:00 AM EST [facility] (Hermilo Walton MD) Name Value Range Interpretation Code Description Data Amara rce(s) Supporting Document(s) Laboratory test finding (navigational concept) 9.7 10 4 .0-10.0 Normal (applies to non-numeric results) [facility] ([facility]erm[facility] Walton MD) Laboratory test finding (navigational concept) 12.8 g/dL 1 2.0-15.5 Normal (applies to non-numeric results) [facility] ([facility]erm[facility] Walton MD) Laboratory test finding (navigational concept) 4.28 10 4 .00-5.40 Normal (applies to non-numeric results) [facility] ([facility]erm[facility] Walton MD) Laboratory test finding (navigational concept) 39.9 % 3 6.0-47.0 Normal (applies to non-numeric results) [facility] (Hermilo Walton MD) Laboratory test finding (navigational concept) 93.2 fl 8 0.0-96.0 Normal (applies to non-numeric results) [facility] (Hermilo Walotn MD) Laboratory test finding (navigational concept) 29.9 pg 2 7.0-33.0 Normal (applies to non-numeric results) [facility] ([facility]erm[facility] Walton MD) Laboratory test finding (navigational concept) 13.5 % 1 1.5-14.5 Normal (applies to non-numeric results) [facility] (Hermilo Watlon MD) Laboratory test finding (navigational concept) 32.1 g/dL 3 2.0-36.5 Normal (applies to non-numeric results) [facility] ([facility]erm[facility] Walton MD) Laboratory test finding (navigational concept) 278 10 1 50-450 Normal (applies to non-numeric results) [facility] ([facility]ermilo Walton MD) Laboratory test finding (navigational concept) 21.7 % 2 4.0-44.0 Below low normal [facility] ([facility]erm[facility] Walton MD) Laboratory test finding (navigational concept) 66.0 % 3 6.0-66.0 Normal (applies to non-numeric results) [facility] ([facility]erm[facility] Walton MD) Laboratory test finding (navigational concept) 7.2 % 0.0-5.0 Above high normal [facility] ([facility]ermilo Walton MD) Laboratory test finding (navigational concept) 3.5 % 0.0-3.0 Above high normal [facility] (Hermilo Walton MD) Laboratory test finding (navigational concept) 0.6 % 0 -3.0 Normal (applies to non-numeric results) [facility] ([facility]ermilo Walton MD) Laboratory test finding (navigational concept) 0.0 % 0 -0 Normal (applies to non- numeric results) [facility] ([facility]erm[facility] Walton MD) Laboratory test finding (navigational concept) 1.0 % 0 .0-1.0 Normal (applies to non-numeric results) [facility] ([facility]ermilo Walton MD) Laboratory test finding (navigational concept) 2.1 10 1 .5-5.0 Normal (applies to non-numeric results) [facility] ([facility]erm[facility] Walton MD) Laboratory test finding (navigational concept) 0.7 10 0 .0-0.8 Normal (applies to non-numeric results) [facility] (Hermilo Walton MD) Laboratory test finding (navigational concept) 6.4 10 1 .5-8.5 Normal (applies to non-numeric results) [facility] ([facility]ermilo Walton MD) Laboratory test finding (navigational concept) 0.3 10 0 .0-0.5 Normal (applies to non-numeric results) [facility] (Hermilo Walton MD) Laboratory test finding (navigational concept) 0.1 10 0 .0-0.2 Normal (applies to non-numeric results) [facility] (Hermilo Walton MD) ID Date Data Source [id number] 04/03/2020 09:52:00 AM EST [facility] ([facility]ermilo Walton MD) Name Value Range Interpretation Code Description Data Amara rce(s) Supporting Document(s) Laboratory test finding (navigational concept) 387 mg/dL 7 0-100 Above high normal [facility] ([facility]erm[facility] Walton MD) Laboratory test finding (navigational concept) 36 mg/dL 7-18 Above high normal [facility] ([facility]ermilo Walton MD) Laboratory test finding (navigational concept) 1.84 mg/dL 0 .55-1.30 Above high normal [facility] ([facility]ermilo Walton MD) Laboratory test finding (navigational concept) 29.1 Below low normal [facility] (Hermilo Walton MD) <content>Units are mL/min/1.73 m2</content>
<content></content>
<content>Chronic Kidney Disease Staging per NKF:</content>
<content></content>
<content>Stage I & II GFR >=60 Normal to Mildly Decreased</content>
<content>Stage III GFR 30- 59 Moderately Decreased</content>
<content>Stage IV GFR 15-29 Severely Decreased</content>
<content>Stage V GFR <15 Very Little GFR Left</content>
<content>ESRD GFR <15 on AUTOMATIC PACKER OPERATOR</content>
<content></content> Laboratory test finding (navigational concept) 136 meq/L 1 36-145 Normal (applies to non-numeric results) [facility] ([facility]erm[facility] Walton MD) Laboratory test finding (navigational concept) 27 meq/L 2 1-32 Normal (applies to non-numeric results) [facility] (Hermilo Walton MD) Laboratory test finding (navigational concept) 4.5 meq/L 3 .5-5.1 Normal (applies to non-numeric results) [facility] (Hermilo Walton MD) Laboratory test finding (navigational concept) 104 meq/L 9 8-107 Normal (applies to non-numeric results) [facility] (Hermilo Walton MD) Laboratory test finding (navigational concept) 20 U/L 7 -37 Normal (applies to non-numeric results) [facility] (Hermilo Walton MD) Laboratory test finding (navigational concept) 9.6 mg/dL 8 .8-10.2 Normal (applies to non-numeric results) [facility] (Hermilo Walton MD) Laboratory test finding (navigational concept) 5 meq/L 8-16 Below low normal [facility] (Hermilo Walton MD) Laboratory test finding (navigational concept) 36 U/L 1 2-78 Normal (applies to non-numeric results) [facility] ([facility]erm[facility] Walton MD) Laboratory test finding (navigational concept) 266 U/L 45-117 Above high normal [facility] (Hermilo Walton MD) Laboratory test finding (navigational concept) 7.2 GM/DL 6 .4-8.2 Normal (applies to non-numeric results) [facility] (Hermilo Walton MD) Laboratory test finding (navigational concept) 3.5 GM/DL 3 .2-5.2 Normal (applies to non-numeric results) [facility] (Hermilo Walton MD) Laboratory test finding (navigational concept) 0.5 mg/dL 0 .2-1.0 Normal (applies to non-numeric results) [facility] ([facility]ermilo Walton MD) Laboratory test finding (navigational concept) 0.9 1.2-2.2 Below low normal [facility] (Hermilo Walton MD) ID Date Data Source [id number] 04/03/2020 09:52:00 AM EST [facility] ([facility]erm[facility] Walton MD) Name Value Range Interpretation Code Description Data Amara rce(s) Supporting Document(s) Laboratory test finding (navigational concept) 12.3 s 1 2.5-14.3 Normal (applies to non-numeric results) [facility] ([facility]ermilo Walton MD) Laboratory test finding (navigational concept) 0.90 Normal (applies to non- numeric results) [facility] (Hermilo Walton MD) THERAPUTIC HUMAN INR VALUES INDICATIONS NORMAL RANGES PROPHYLAXIS/TREATMENT OF: VENOUS THROMBOSIS 2.0-3.0 PULMONARY EMBOLISM 2.0-3.0 PREVENTION OF SYSTEMIC EMBOLISM FROM: TISSUE HEART VALVES 2.0-3.0 ACUTE MYOCARDIAL INFARCTION 2.0-3.0 VALVULAR HEART DISEASE 2.0-3.0 ATRIAL FIBRILLATION 2.0-3.0 MECHANICAL VALVES(HIGH RISK) 2.5-3.5 RECURRENT MYOCARDIAL INFARCTION 2.5-3.5 ID Date Data Source [id number] 04/03/2020 09:52:00 AM EST [facility] ([facility]) Name Value Range Interpretation Code Description Data Amara rce(s) Supporting Document(s) Erythrocyte sedimentation rate by Westergren method 49 mm/hr 0-30 [facility] ([facility]) ID Date Data Source [id number] 04/03/2020 09:52:00 AM EST [facility] ([facility]) Name Value Range Interpretation Code Description Data Amara rce(s) Supporting Document(s) White Blood Count 9.7 10 4.0-10.0 [facility] ([facility]) Red Blood Count 4.28 10 4.00-5.40 [facility] ([facility]) Hematocrit 39.9 % 36.0-47.0 [facility] ([facility]) Hemoglobin 12.8 g/dL 12.0-15.5 [facility] ([facility]) Mean Corpuscular Volume 93.2 fl 80.0-96.0 M [facility] ([facility]) Mean Corpuscular HGB Conc 32.1 g/dL 32.0-36.5 [facility] ([facility]) Mean Corpuscular Hemoglobin 29.9 pg 27.0-33.0 [facility] ([facility]) Platelet Count, Automated 278 10 150-450 [facility] ([facility]) Red Cell Distribution Width 13.5 % 11.5-14.5 [facility] ([facility]) [place] % 7.2 % 0.0-5.0 [facility] Lymph % 21.7 % 24.0-44.0 [facility] ([facility]) Neutrophils % 66.0 % 36.0-66.0 [facility] ([facility]) Eos % 3.5 % 0.0-3.0 [facility] ([facility]) Immature Granulocyte % 0.6 % 0-3.0 [facility] ([facility]) Baso % 1.0 % 0.0-1.0 [facility] ([facility]) Lymph # 2.1 10 1.5-5.0 [facility] ([facility]) Neutrophils # 6.4 10 1.5-8.5 [facility] ([facility]) Nucleated Red Blood Cell % 0.0 % 0-0 [facility] ([facility]) [place] # 0.7 10 0.0-0.8 [facility] ([facility]) Baso # 0.1 10 0.0-0.2 [facility] ([facility]) Eos # 0.3 10 0.0-0.5 [facility] ([facility]) ID Date Data Source [id number] 04/03/2020 09:52:00 AM EST [facility] ([facility]) Name Value Range Interpretation Code Description Data Amara rce(s) Supporting Document(s) Glucose, Fasting 387 mg/dL 70-100 [facility] ([facility]) Blood Urea Nitrogen 36 mg/dL 7-18 [facility] ([facility]) Creatinine For GFR 1.84 mg/dL 0.55-1.30 [facility] ([facility]) Glomerular Filtration Rate 29.1 [facility] ([facility]) <content>Units are mL/min/1.73 m2</content>
<content></content>
<content>Chronic Kidney Disease Staging per NKF:</content>
<content></content>
<content>Stage I & II GFR >=60 Normal to Mildly Decreased</content>
<content>Stage III GFR 30- 59 Moderately Decreased</content>
<content>Stage IV GFR 15-29 Severely Decreased</content>
<content>Stage V GFR <15 Very Little GFR Left</content>
<content>ESRD GFR <15 on AUTOMATIC PACKER OPERATOR</content>
<content></content> Sodium Level 136 meq/L 136-145 [facility] ([facility]) Potassium Serum 4.5 meq/L 3.5-5.1 [facility] ([facility]) Carbon Dioxide Level 27 meq/L 21-32 [facility] Chloride Level 104 meq/L 98-107 [facility]) Ast/Sgot 20 U/L 7-37 [facility] Anion Gap 5 meq/L 8-16 [facility] ([facility]) Calcium Level 9.6 mg/dL 8.8-10.2 [facility]) Alt/SGPT 36 U/L 12-78 [facility] ([facility]) Alkaline Phosphatase 266 U/L 45-117 [facility] ([facility]) Total Protein 7.2 GM/DL 6.4-8.2 [facility] ([facility]) Albumin 3.5 GM/DL 3.2-5.2 [facility] ([facility]) Bilirubin,Total 0.5 mg/dL 0.2-1.0 [facility] ([facility]) Albumin/Globulin Ratio 0.9 1.2-2.2 [facility] ([facility]) ID Date Data Source [id number] 04/03/2020 09:52:00 AM EST [facility] ([facility]) Name Value Range Interpretation Code Description Data Amara rce(s) Supporting Document(s) Prothrombin Time 12.3 s 12.5-14.3 [facility] ([facility]) Inr 0.90 [facility] ([facility]) THERAPUTIC HUMAN INR VALUES INDICATIONS NORMAL RANGES PROPHYLAXIS/TREATMENT OF: VENOUS THROMBOSIS 2.0-3.0 PULMONARY EMBOLISM 2.0-3.0 PREVENTION OF SYSTEMIC EMBOLISM FROM: TISSUE HEART VALVES 2.0-3.0 ACUTE MYOCARDIAL INFARCTION 2.0-3.0 VALVULAR HEART DISEASE 2.0-3.0 ATRIAL FIBRILLATION 2.0-3.0 MECHANICAL VALVES(HIGH RISK) 2.5-3.5 RECURRENT MYOCARDIAL INFARCTION 2.5-3.5 ID Date Data Source [id number] 03/24/2020 01:10:00 PM EST [facility] ([facility]) Name Value Range Interpretation Code Description Data Amara rce(s) Supporting Document(s) Erythrocyte sedimentation rate by Westergren method Laboratory test result [facility] ([facility]) ID Date Data Source [id number] 03/24/2020 01:09:00 PM EST [facility] ([facility]) Name Value Range Interpretation Code Description Data Amara rce(s) Supporting Document(s) EKG Laboratory test result MEDENT ([facility]) ID Date Data Source [id number] 03/24/2020 01:08:00 PM EST MEDENT ([facility]) Name Value Range Interpretation Code Description Data Amara rce(s) Supporting Document(s) Chest x-ray Laboratory test result MEDEN T ([facility]) ID Date Data Source [id number] 02/16/2020 10:19:00 AM EST MEDENT ([facility]) Name Value Range Interpretation Code Description Data Amara rce(s) Supporting Document(s) Laboratory test finding (navigational concept) Laboratory test result MEDENT ([facility]) ID Date Data Source [id number] 05/24/2019 11:03:00 AM EDT [facility] Name Value Range Interpretation Code Description Data Amara rce(s) Supporting Document(s) SARS CORONAVIRUS 2 RNA [facility] This lab was ordered by [facility] and reported by [facility]. ID Date Data Source RESPIRATORY PANEL 05/24/2019 12:00:00 AM EDT eCW1 ([facility]) Name Value Range Interpretation Code Description Data Amara rce(s) Supporting Document(s) This respiratory PCR panel detects Influenza A H1, H3 and RESPIRATORY PANEL eCW1 ([facility]) ID Date Data Source [id number] 05/13/2019 04:41:23 PM EDT [facility] Name Value Range Interpretation Code Description Data Amara rce(s) Supporting Document(s) &PDF [facility] EBEKHu1cMuSSEaBf44/HBElgORYcu5TiINbpGXe7UNyySJKoG0HzxZvnFRYNEZODGA6ZYHSDNTWJHLxy hdG [file] AgICAgICAgICAgICAgICAgICAgICAgICAgICAgICAgICAgICAgICAgICAgICAgICAgICAgICAgICAgIC WwPVFfPNWmXLWhXX6KOUHzYMNsYZRrJQKyHFGtHRDf ICAgICAgICAgICAgICAgICAgICAgICAgICAgICAgICAgICAgICAgICAgICAgICAgICAgICAgICAgICAg HXIwUTAzOWDqSEJvSJNiZEChLIOhYU7WXHIuSJWfBMAdSIInRIGjITNcGBQoRTHqMBMcOLFzXVNrCLLc ICAgICAgICAgICAgICAgICAgICAgICAgICAgICAgIC UtGDTbHPIxUSBzWUOaLKHiRMDvOBCuGVXnPLOhERYaLA8JHATlJTEzFMBtUXQoAKIgFNDzVACxABMlNN AgICAgICAgICAgICAgICAgICAgICAgICAgICAgICAgICAgICAgICAgICAgICAgICAgICAgICAgICAgIC PlSZAnPTIlXYXmDIErWY4EYHGvIBMtYGYiRSByNPHu ICAgICAgICAgICAgICAgICAgICAgICAgICAgICAgICAgICAgICAgICAgICAgICAgICAgICAgICAgICAg TIGqFILwCKIrPOPlSTIyBARjEOMpABNwYZ7KVPGiZUHmSSLzOPDrNMBgZLIuNHHfADWvKXFkTNOmIYNk ICAgICAgICAgICAgICAgICAgICAgICAgICAgICAgIC YkBOEdYGRxUKOaCBImKBXtVKMdMVZaIXXcWWAuOYWmLTGpJG6DAFFkINFxAKRyMDMhVPUcPTFwMQJgRP AgICAgICAgICAgICAgICAgICAgICAgICAgICAgICAgICAgICAgICAgICAgICAgICAgICAgICAgICAgIC StXHHiIPJgPOWtVZTnCHYlRH9GEBPkWWTqWKSrYVBb ICAgICAgICAgICAgICAgICAgICAgICAgICAgICAgICAgICAgICAgICAgICAgICAgICAgICAgICAgICAg EZXmXNLrZZMfVZIiDBTyPIApBXNfLDTxGITeRF0MHOIyVSJyEDAnGGBsBYKgEJDyEKJpNWNiMZVeNNKa ICAgICAgICAgICAgICAgICAgICAgICAgICAgICAgIC WqQHMiPDQhJXPkLFGwYJOoYBQvNICwBKGgHZMbDTQiOZIrMOZqQD0NFKZwBOYtHLNrOEJcKJUzZNWnQD AgICAgICAgICAgICAgICAgICAgICAgICAgICAgICAgICAgICAgICAgICAgICAgICAgICAgICAgICAgIC PeKOUgCBRjOFLmRDJnQHHcPTAnTQ4UTH63uEDrk1A9 TTTwYB1mqms/Mn9DKHlibxEndEMeAK2CPePtEH2qbo9IAuHkQT0nkf4FWNlAZcXqP7J3uGLzDFZeCJCS GwPvN14wYFzcFw17HFmdRRGxGqOjMOn9Ln5JVrUoP3opHAQwTqN2AJIsLmZ7JRZyAlKqRDljJE1Zg5Sf dCAyDQo+Pd7CSJ3pn4PvGXkcRMVzCU0xsj7YNNgMLx QsC4A2dPOpA3Z1HYkrDn2CHBPvVIErOJEfGVBYXVfeTO9PUA2oliW9BZ6PoHQvZZOuMRXvfRPwQAd3C3 6viBBlTVoeHQ8VWCJ+Allyson+Ip6JVWOqMMBcJHGpUiGsPBEEQcSrI68pdNIzBRHbBAC7SNTzCq6IRAHnQ2 BehnQftYnnkhSeWPJhFYEQUZ1PVLfrejRqiSJazYre EI86sFnoHQ2VWu1NSvCaIP9mrq0ZnUUxGj3VSYQiBX8AHQNqWHBkGGWfWTZ8UODcLsZwJDuxBXKjZBKm CQC5VVRqUEVsAF8GBzMlIWOoZKZ5LaLpYUUfKIGuat8AMWOjJJKcPkE3IJTgTIOtNUMbVMebHDTcSIKg QPs4FJHfVMOtHI1GPnJzMTAdBKS1IWDdKEUbAGQmvd 2THQSiQHGaELi6IgWxIIRnZSVfMWfcVJMgQXOlOyT2FCDjHZQwGF8XWgBjAWWzUXV7ONnfMSFuMNUiha 2LYEEeTTNeTJEiDgWjMIXqIIReHCaeJWQcTEU6HgVjDOEeZMPcVC5ISeTjUXMcNQW1BFSoWYRkLUPfrm 5FOKVjWYArBXg0YmArFMGdOFYbJLqxRJAuGBF2ZDT8 ZMYpBRHoJP3AAbFeYZObMUMmUpEpZJAwNHQpup9SFVPxNGLqOIvkFDGkTZTiDPGnKWchJTWwAMO2HMCg IAGbATTqDD4ZLiKaRUWuBOOwUJzeEMEwWHJwof1BBYVpRXJnOpdaGpJmWPYcMKUyJIx7otIhdLKsMTj4 AU6DV7QixbDkLDkAEk8Gj205CXH6GJClOo7YJ0swJb 3aGIBmZMMAMo9DZIk3T5JwVPRfSvTnC8XzHNRxPDusWXhpSKEeRoDnIPb4APW+NEp3LRFoTqC3KdMxZP A4OGJiWLUxZdJcIxBjAsI3NOucQt8fUSHMKe4+IJvjmJSfiVsgXCYSJxJ4XCj1QYmsADVAJi6I Procedure Social History Code Duration Value Status Description Data Source(s ) Alcohol intake 03/08/2020 12:00:00 AM EST No completed [facility] Cigarette pack-years 03/08/2020 12:00:00 AM EST UNK completed [facility] Cigarettes smoked current (pack per day) - Reported 03/08/19 12:00:00 AM EST UNK completed [facility] Smoking 03/08/2020 12:00:00 AM EST Current every day smoker co mpleted Current every day smoker [facility] Vital Signs ID Date Data Source UNK Name Value Range Interpretation Code Description Data Source(s) Respiratory rate 14 /min 14 /min MEDENT ( [facility]) Body mass index (BMI) [Ratio] 31.2 kg/m2 31.2 k g/m2 MED[facility] ([facility]) Body weight 168.12 [lb_av] 168.12 [lb_av] MEDEN T ([facility]) Body height 61.5 [in_i] 61.5 [in_i] MEDENT ([facility]) 5'1.50" Body temperature 96.9 [degF] 96.9 [degF] MEDENT ([facility]) Heart rate 65 /min 65 /min MED[facility] ([facility]) Diastolic blood pressure 85 mm[Hg] 85 mm[Hg] MEDENT ([facility]) Systolic blood pressure 141 mm[Hg] 141 mm[Hg] M EDENT ([facility]) Oxygen saturation in Arterial blood by Pulse oximetry 95 % 95 % [facility] Body mass index (BMI) [Ratio] 29.29 kg/m2 29.29 kg/m2 [facility] Body weight 68.04 kg 68.04 kg [facility] Body height 152.4 cm 152.4 cm [facility] Heart rate 85 /min 85 /min [facility] Diastolic blood pressure 60 mm[Hg] 60 mm[Hg] [facility] Systolic blood pressure 118 mm[Hg] 118 mm[Hg] [facility] Body mass index (BMI) [Ratio] 27.9 kg/m2 27.9 k g/m2 MEDENT ([facility]) Body weight 150.00 [lb_av] 150.00 [lb_av] MEDEN T ([facility]) Body height 61.5 [in_i] 61.5 [in_i] MEDENT ([facility]) 5'1.50" Body temperature 97.3 [degF] 97.3 [degF] MEDENT ([facility]) Diastolic blood pressure 71 mm[Hg] 71 mm[Hg] eCW1 ([facility]) Systolic blood pressure 132 mm[Hg] 132 mm[Hg] e CW1 ([facility]) Body temperature 97.9 [degF] 97.9 [degF] eCW1 ( [facility]) Respiratory rate 22 /min 22 /min eCW1 ([facility]) Heart rate 66 /min 66 /min eCW1 ([facility]) Body mass index (BMI) [Ratio] 37.30 kg/m2 37.30 kg/m2 W1 ([facility]) Body height 60 [in_us] 60 [in_us] eCW1 ([facility]) Body weight Measured 191 [lb_av] 191 [lb_av] eC W1 ([facility]) Patient Treatment Plan of Care Planned Activity Planned Date Details Description Data Source (s) Ticagrelor 60 MG Oral Tablet 02/02/2020 12:00:00 AM EST [facility] albuterol (PROVENTIL HFA;VENTOLIN HFA) 108 (90 Base) M CG/ACT inhaler 05/24/2019 12:00:00 AM EDT [facility] 200 ACTUAT Albuterol 0.09 MG/ACTUAT Metered Dose Inhal er [ProAir] 05/24/2019 12:00:00 AM EDT eCW1 ([facility]) doxycycline hyclate 100 MG Oral Capsule 05/24/2019 12:00:00 AM EDT eCW1 ([facility]) canagliflozin 300 MG Oral Tablet [Invokana] 04/20/2019 12:00:00 AM EST [facility] Amlodipine 10 MG Oral Tablet 04/19/2019 12:00:00 AM EST [facility]
[2020-04-14] MEDS ORDERED: propofoL 500 MG/50 ML VIAL As Ordered ONE (10:36)
[2020-04-14] MEDS ORDERED: fentaNYL 100 MCG/2 ML INJECTION (J3010) As Ordered ONE (10:36)
[2020-04-14] MEDS ORDERED: MIDAZOLAM INJ 2MG/2ML VIAL (J2250 PER 1MG) As Ordered ONE (10:36)
[2020-04-14] MEDS ORDERED: LIDOCAINE 2% 100MG/5ML SDV (FOR ANES.) As Ordered ONE (10:36)
[2020-04-14] MEDS ORDERED: CLINDAMYCIN INJ 900MG/6ML VIAL As Ordered ONE (11:45)
[2020-04-14] MEDS ORDERED: TRANEXAMIC ACID 100 MG/ML 10ML VIAL As Ordered ONE (11:45)
[2020-04-14] MEDS ORDERED: EPINEPHrine INJ 1 MG/ML 1ML AMP As Ordered ONE (11:46)
[2020-04-14] MEDS ORDERED: BUPIVACAINE HCL 0.25% 10ML VIAL As Ordered ONE (11:47)
[2020-04-14] MEDS ORDERED: BUPIVACAINE LIPOSOME/PF 1.3% 20ML VIAL (13.3MG/ML)(EXPAREL)(C9290 PER1MG) As Ordered ONE (11:47)
--- NOTE | 2020-04-14 11:58 | IPN ---
PROGRESS NOTE DATE: 04/14/2020 SUBJECTIVE: Patient seen and examined. She wished to go ahead with a right total hip arthroplasty. She understands the nature of this, the risks of bleeding, infection, damage to nerves, muscles, persistent pain, wear, loosening, dislocation, leg length inequality, blood clots, medical problems, , among others. Preoperative clearance was obtained.
[2020-04-14] MEDS ORDERED: ePHEDrine SULFATE 25 MG/5 ML(5MG/ML) SYRINGE As Ordered ONE (12:58)
[2020-04-14] MEDS ORDERED: fentaNYL 100 MCG/2 ML INJECTION (J3010) IV PRN ×2 (14:00→16:30)
[2020-04-14] MEDS ORDERED: ONDANSETRON 4MG/2ML VIAL IV PRN ×2 (14:00→16:30)
[2020-04-14] MEDS ORDERED: LR 1,000 ML IV SCH ×3 (14:00→16:30)
[2020-04-14] MEDS ORDERED: oxyCODONE 5MG TAB PO PRN ×2 (14:00→16:30)
[2020-04-14] MEDS ORDERED: HYDROMORPHONE HCL 0.5 MG/ 0.5 ML SYRINGE (J1170 PER 1) IV PRN ×2 (14:00→16:30)
[2020-04-14] MEDS ORDERED: MORPHINE 2 MG/ML 1ML VIAL (J2270) IV PRN (14:15)
[2020-04-14] MEDS ORDERED: MORPHINE 4 MG/ML 1ML VIAL/SYRINGE (J2270) IV PRN (14:15)
[2020-04-14] MEDS ORDERED: ACETAMINOPHEN TAB 650MG DOSE (2X325MG) PO PRN (14:15)
--- NOTE | 2020-04-14 14:30 | RO ---
OPERATIVE NOTE DATE OF OPERATION: 04/14/2020 PREOPERATIVE DIAGNOSIS: Right hip osteoarthritis. POSTOPERATIVE DIAGNOSIS: Right hip osteoarthritis. PROCEDURE: Right total hip arthroplasty using a [place] size 6 high offset, +5 36 ball, and a 52 acetabular component. SURGEON: Yoandy Brown MD. VICTORIAN LITERATURE PROFESSOR: VENUS Montgomery. ANESTHESIA: Spinal. EBL: 200. COMPLICATIONS: None. DESCRIPTION OF PROCEDURE: Patient was taken to the operating room and placed in the left lateral decubitus position on the [place] positioner. The right hip was prepped and draped in the usual sterile fashion. All areas had been padded appropriately. A time out was performed. A longitudinal incision was made over the lateral aspect of the hip. I sharply dissected down through subcutaneous tissue, controlled hemostasis with a cautery, and then exposed the fascia omega which was incised. I then divided the anterior 40% of the abductor off the anterior aspect of the hip and was able to dislocate the hip relatively easily because it was somewhat subluxed. I used a canal initiating reamer, the canal finding reamer, and the lateralizing reamer and then sequentially reamed up to a size 6 which had a good purchase. I made the neck cut at about a half a finger breadth up from the lesser trochanter, removed the ball, and then prepared the acetabulum. The anterior and posterior retractors were removed from the soft tissue and then sequentially reamed up to a size 51 which had good bleeding bone, good concentric reaming. I irrigated and impacted in a 52 cup which had excellent fit and very solid feel. I placed the [place] hole eliminator followed by the polyethylene for a 36 head. We then directed our attention back to the femur. We used broaches to broach up to a size 6 which fit very nicely. He had an excellent proximal fill. Used a calcar planer to smooth off the proximal femur and then trialed various neck lengths and offsets and decided on a +5 high offset which had the most appropriate soft tissue tension. There was excellent stability in external rotation and extension, internal rotation and flexion, and minimal shock. No impingement noted. I then removed the trial components. I again irrigated and impacted the 6 high offset stem, dried the taper, placed the +5 36 ball and impacted this in place. I again irrigated and then reduced the hip and put the hip through a range of motion. I was very pleased with the position of this and the stability and soft tissue tension. I then repaired the minimus with #1 Vicryl suture, placed TXA deep in the wound, repaired the abductor with #1 Vicryl suture, irrigated again, and then repaired the fascia omega with #1 Vicryl suture and running Stratafix and then placed Exparel in the deep tissues. Subcu was closed with 2-0 Vicryl and the skin with samantha. Sterile dressing was applied. She was taken to the recovery room in stable condition. There were no known complications. The plan will be routine postop. The assistant counsel was instrumental in holding retractors and assisting in dislocating and reducing the hip and assisting in wound closure.
[2020-04-14] MEDS ORDERED: DEXTROSE 50% 50 ML SYRINGE IV PRN (14:45)
[2020-04-14] MEDS ORDERED: GLUCAGON INJ 1MG VIAL SC PRN (14:45)
[2020-04-14] MEDS ORDERED: GLUCOSE 4GM CHEW TABLET PO PRN (14:45)
--- NOTE | 2020-04-14 14:52 | REP ---
INDICATION: POST OP PLACEMENT. COMPARISON: Comparison radiographs October 06, 2012.. TECHNIQUE: AP and cross-table lateral views are obtained portably. FINDINGS: AP and cross-table lateral views of the right hip demonstrate a right hip arthroplasty in good position. Lateral skin samantha are seen. Periarticular soft tissue emphysema is noted. Vascular calcification is seen. In addition, there is a superficial femoral artery stent in place. IMPRESSION: Status post right hip arthroplasty. <Electronically signed by Zen Smith > 04/14/20 [id number]
[2020-04-14] MEDS ORDERED: oxyCODONE 5MG TAB As Ordered ONE (15:40)
--- NOTE | 2020-04-14 16:24 | HPEPDOC ---
General Date of Admission Apr 14, 2020 at 09:24 Date of Service: Apr 14, 2020 Chief Complaint The patient is a 69-year-old female admitted with a reason for visit of Right Hip Osteoarthritis. Source: Patient, RN/MD History of Present Illness Consultation report. Consultation requested by Ortho Consultation for the management of medical comorbidities in the post operative period. HPI: 69 year old female with PMH of CAD s/p stents placement, PVD s/p stents in b/l LE, DM, HTN, HLD, carotid artery stenosis s/p CEA, OA was admitted for elective right hip arthroplasty due to advanced OA . Surgery was uneventful. Patietn complained of sharp aching pain at the right hip constant about 5/10 in intensity and increasing. No nausea or vomiting , no chest pain or SOB. Home Medications Scheduled Amlodipine Besylate (Amlodipine Besylate) 5 Mg Tablet, 10 MG PO DAILY, (Reported) Aspirin (Aspirin EC) 81 Mg Tablet.dr, 81 MG PO DAILY, (Reported) Atorvastatin Calcium (Atorvastatin Calcium) 40 Mg Tablet, 40 MG PO DAILY, (Reported) Canagliflozin (Invokana) 100 Mg Tablet, 300 MG PO DAILY, (Reported) Carvedilol (Carvedilol) 25 Mg Tablet, 25 MG PO BID, (Reported) Ezetimibe (Ezetimibe) 10 Mg Tablet, 10 MG PO DAILY, (Reported) Losartan Potassium (Losartan Potassium) 50 Mg Tablet, 50 MG PO DAILY, (Reported) Ticagrelor (Brilinta) 60 Mg Tablet, 60 MG PO BID, (Reported) Allergies Coded Allergies: Penicillins (Verified Allergy, Intermediate, rash, 04/14/20) Past Medical History Medical History CAD s/p stents placement, PVD s/p stents in b/l LE, DM, HTN, HLD, carotid artery stenosis s/p CEA, OA Surgical History Cardiac stent placement Bilateral lower extremity stent placement for PVD Left carotid endarterectomy Cholecystectomy Appendectomy Tubal ligation Family History Father h;eart attack 1 sister COPD, stroke Mother Fan blade injury. Daughter- HLD Social History * Smoker: current smoker Alcohol: Denies (used to be a heavy drinker many years ago) Drugs: denies A-FIB/CHADSVASC A-FIB History Current/History of A-Fib/PAF?: No Review of Systems Constitutional: Denies: Chills, Fever, Night Sweats Eyes: Denies: Pain, Vision change ENT: Denies: Head Aches, Ear Pain, Dysphagia Skin: Denies: Rash, Lesions, Breakdown Pulmonary: Denies: Dyspnea, Cough Cardiovascular: Denies: Chest Pain, Palpitations, Orthopnea, Paroxysmal Noc. Dyspnea, Lt Headedness Gastrointestinal: Denies: Nausea, Vomiting, Abdominal Pain, Diarrhea Musculoskeletal: Reports: Joint Pain (right hip) Physical Examination General Exam: Positive: Alert, No Acute Distress Eye Exam: Positive: PERRLA, Conjunctiva & lids normal, EOMI; Negative: Sclera icteric ENT Exam: Positive: Atraumatic, Mucous membr. moist/pink, Pharynx Normal Neck Exam: Positive: Supple; Negative: JVD, thyromegaly Chest Exam: Positive: Clear to auscultation, Normal air movement Heart Exam: Positive: Rate Normal, Regular Rhythm, Normal S1, Normal S2; Negative: Murmurs, Rubs Abdomen Exam: Positive: Normal bowel sounds, Soft; Negative: Tenderness, Hepatospenomegaly Extremity Exam: Positive: Normal pulses; Negative: Clubbing, Cyanosis, Edema Vital Signs Vital Signs Date Time Temp Pulse Resp B/P (MAP) Pulse Ox O2 Delivery O2 Flow Rate FiO2 04/14/20 14:01 52 18 138/63 (88) 94 Room Air 04/14/20 13:50 97.6 Laboratory Data Labs 24H Laboratory Tests 2 04/14/20 10:21: Bedside Glucose (Misc Panel) 199H Assessment/Plan 69 year old female with PMH of CAD s/p stents placement, PVD s/p stents in b/l LE, DM, HTN, HLD, carotid artery stenosis s/p CEA, OA was admitted for elective right hip arthroplasty due to advanced OA . S/p Right hip replacement for advanced OA pain control and DVT prophylaxis as per ortho PT/OT Bowel regimen CAD s/p stents placement continue coreg and statin . will hold asa as will be on AC. DM FS ac and hs Lispro sliding scale Hold oral med HTN, continue amlodipine and coreg will hold losartan at present. HLD, statin, zetia. Carotid artery stenosis s/p CEA, PVD s/p stents in b/l LE, Plan / VTE VTE Prophylaxis Ordered?: Yes LOIS DUARTE MD Apr 14, 2020 14:18
[2020-04-14] MEDS: CLINDAMYCIN 900 MG in IV 1 EA IV SCH (17:16)
[2020-04-14] MEDS: HumaLOG INSULIN (NovoLOG) PER UNIT SC SCH ×2 (17:17→20:48)
[2020-04-14] MEDS: PERCOCET 5MG/325MG TAB PO PRN ×2 (17:34→22:24)
[2020-04-14] MEDS: CARVedilol 12.5 MG TAB PO SCH (19:31)
[2020-04-15] MEDS: CLINDAMYCIN 900 MG in IV 1 EA IV SCH (00:44)
[2020-04-15 02:00] VITALS: BP 127/48
[2020-04-15] MEDS: ONDANSETRON 4MG/2ML VIAL IV PRN (03:10)
[2020-04-15] MEDS: PERCOCET 5MG/325MG TAB PO PRN ×4 (05:36→21:20)
[2020-04-15 06:00] VITALS: BP 141/74
[2020-04-15] MEDS ORDERED: XARE10TA PO (06:10)
[2020-04-15] MEDS ORDERED: PERC5TAB12 PO (06:10)
[2020-04-15 07:16] LABS: HEMATOCRIT 36.3 % (36.0-47.0); HEMOGLOBIN 11.3 g/dl (12.0-15.5); MEAN CORPUSCULAR HGB CONC 31.1 g/dl (32.0-36.5); MEAN CORPUSCULAR VOLUME 93.3 fl (80.0-96.0); PLATELET COUNT, AUTOMATED 231 10^3/uL (150-450); RED BLOOD COUNT 3.89 10^6/uL (4.00-5.40)
[2020-04-15] MEDS: HumaLOG INSULIN (NovoLOG) PER UNIT SC SCH ×4 (08:25→21:00)
[2020-04-15] MEDS: ATORVASTATIN 20 MG TAB PO SCH (08:26)
[2020-04-15] MEDS: EZETIMIBE 10 MG TAB (ZETIA) PO SCH (08:27)
[2020-04-15] MEDS: CARVedilol 12.5 MG TAB PO SCH ×2 (08:27→21:22)
[2020-04-15] MEDS: MIRALAX *UNIT DOSE* 17GM PACKET PO SCH (09:00)
[2020-04-15] MEDS: MOM 30ML SUSPENSION UDC PO SCH (09:00)
[2020-04-15 10:00] VITALS: BP 144/53
[2020-04-15 14:00] VITALS: BP 124/47
[2020-04-15] MEDS: RIVAROXABAN 10 MG TAB (XARELTO) PO SCH (17:38)
[2020-04-15 22:00] VITALS: BP 113/51
[2020-04-15 23:10] LABS: CALCIUM LEVEL 8.8 MG/DL (8.8-10.2); CREATININE FOR GFR 1.89 MG/DL (0.55-1.30); GLOMERULAR FILTRATION RATE 28.2 (>45); POTASSIUM SERUM 4.4 MEQ/L (3.5-5.1)
--- NOTE | 2020-04-15 23:22 | REPVR ---
PROCEDURE INFORMATION: Exam: CT Head Without Contrast Exam date and time: 04/15/2020 10:37 PM Age: 69 years old Clinical indication: Altered mental status/memory loss; Confusion or disorientation; Additional info: Altered mental status, on xarelto TECHNIQUE: Imaging protocol: Computed tomography of the head without contrast. Radiation optimization: All CT scans at this facility use at least one of these dose optimization techniques: automated exposure control; mA and/or kV adjustment per patient size (includes targeted exams where dose is matched to clinical indication); or iterative reconstruction. COMPARISON: CT Head without contrast 03/21/2019 7:39 AM FINDINGS: Brain: There is a 1 cm oval low-density area at the right basal ganglia region consistent with an area of old stroke. There is a 6 cm by 3 cm wedge-shaped area of low density/CSF density right temporal lobe and parietal lobes consistent with an area of old stroke. Both of these areas are new when compared with the CT examination of 03/21/2019. There is patchy low density in the periventricular white matter consistent with chronic ischemic changes and this is greater on the right. There is no evidence of intracranial bleed. Cerebral ventricles: Normal appearing ventricles. Paranasal sinuses: Clear paranasal sinuses. Orbital cavity: Symmetric orbits. Other findings: If there is concern of new extension of stroke suggest correlation with MRI. IMPRESSION: 1. Large areas of old stroke on the right that have developed since 03/21/2019. 2. Severe chronic ischemic changes. 3. No evidence of acute bleed. 4. If there is any concern of new extension of stroke recommend correlation with MRI Electronically signed by: Seymour Green On 04/15/2020 23:22:38 PM
[2020-04-15] MEDS: SENOKOT S TAB PO SCH (23:28)
[2020-04-16] MEDS: ONDANSETRON 4MG/2ML VIAL IV PRN (05:35)
[2020-04-16 06:10] VITALS: BP 155/60
[2020-04-16 06:43] LABS: HEMATOCRIT 32.4 % (36.0-47.0); HEMOGLOBIN 10.1 g/dl (12.0-15.5); MEAN CORPUSCULAR HEMOGLOBIN 29.4 pg (27.0-33.0); MEAN CORPUSCULAR HGB CONC 31.2 g/dl (32.0-36.5); MEAN CORPUSCULAR VOLUME 94.2 fl (80.0-96.0); PLATELET COUNT, AUTOMATED 206 10^3/uL (150-450); RED BLOOD COUNT 3.44 10^6/uL (4.00-5.40); WHITE BLOOD COUNT 13.9 10^3/uL (4.0-10.0)
--- NOTE | 2020-04-16 07:53 | REPVR ---
PROCEDURE INFORMATION: Exam: US Duplex Bilateral Extracranial Arteries Exam date and time: 04/16/2020 6:40 AM Age: 69 years old Clinical indication: Other: Cerebral infarct; Prior surgery; Surgery date: 6+ months; Surgery type: S/P lt endartectomy- patient unsure of when surgery was but states it was years ago; Additional info: Ischemic infarct TECHNIQUE: Imaging protocol: Real-time Duplex ultrasound scan of the bilateral carotid and vertebral arteries combining soriano scale, color Doppler and spectral waveform analysis. Bilateral exam. COMPARISON: CT Head without contrast 04/15/2020 10:37 PM FINDINGS: Right common carotid artery: There is minimal calcification at the origin of the right CCA. Otherwise the right CCA is patent with normal waveforms and peak systolic velocities measuring 132.1 centimeter/second, 87.9 centimeter/second and 75 centimeter/second in the proximal, mid and distal CCA respectively. Right internal carotid artery: Bulky partially calcified plaque seen in the right carotid bulb extending to the proximal right ICA with peak systolic velocity of 125 centimeter/second and 121.8 centimeter/second respectively. Mild mural calcifications seen in the mid right ICA with peak systolic velocity of 138.4 centimeter/second. The distal right ICA is patent with peak systolic velocity of 128.9 centimeter/second. Right external carotid artery: The right ECA is patent with peak systolic velocity of 160 centimeter/second. Right vertebral artery: Antegrade flow seen in the right vertebral artery with peak systolic velocity of 62.1 centimeter/second. Left common carotid artery: The proximal left CCA is patent with peak systolic velocity of 48.3 centimeter/second. Irregular calcified plaque seen in the left mid CCA with near doubling of the peak systolic velocity at 81.3 centimeter/second. There is significant increase in peak systolic velocity in the distal left CCA measuring 355.1 centimeter/second. Left internal carotid artery: Bulky partially calcified plaque seen in the left carotid bulb with peak systolic velocity of 3 of 4.4 centimeter/second. The left ICA is patent with peak systolic velocities measuring 127.1 centimeter/second, 92.8 centimeter/second and 49.8 centimeter/second in the proximal, mid and distal left ICA respectively. Left external carotid artery: The left ECA is patent with peak systolic velocity of 94 centimeter/second. Left vertebral artery: Antegrade flow seen in the left vertebral artery with peak systolic velocity of 70.1 centimeter/second. IMPRESSION: 1. Irregular partially calcified plaques extending from the mid left CCA through the carotid bulb to the origin of the ICA and ECA with Doppler findings suggestive of high-grade stenosis - more than 70% in the distal CCA and bulb. 2. Bulky calcified plaque in the right carotid bulb extending to the proximal ICA and ECA resulting in low range 50-69% stenosis in the bulb and proximal right ICA and less than 50% stenosis in the proximal ECA. 3. Patent vertebral arteries with antegrade flow bilaterally. REFERENCES: SRU CRITERIA. The degree of internal carotid artery stenosis is based on criteria defined by the Society of Radiologists in Ultrasound (SRU). Normal is no stenosis. Mild is less than 50% stenosis. Moderate is 50-69% stenosis. Severe is greater than 69% stenosis to near occlusion. Near occlusion is a markedly narrowed lumen. Total occlusion is no detectable patent lumen. Electronically signed by: Mukesh Lou On 04/16/2020 07:53:17 AM
[2020-04-16 08:02] LABS: CALCIUM LEVEL 8.2 MG/DL (8.8-10.2); CREATININE FOR GFR 1.85 MG/DL (0.55-1.30); GLOMERULAR FILTRATION RATE 28.9 (>45); POTASSIUM SERUM 4.3 MEQ/L (3.5-5.1)
[2020-04-16] MEDS: CARVedilol 12.5 MG TAB PO SCH ×2 (08:39→20:49)
[2020-04-16] MEDS: SENOKOT S TAB PO SCH (08:40)
[2020-04-16] MEDS: EZETIMIBE 10 MG TAB (ZETIA) PO SCH (08:40)
[2020-04-16] MEDS: HumaLOG INSULIN (NovoLOG) PER UNIT SC SCH ×4 (08:40→20:26)
[2020-04-16] MEDS: ATORVASTATIN 20 MG TAB PO SCH (08:41)
[2020-04-16] MEDS: MOM 30ML SUSPENSION UDC PO SCH (09:00)
[2020-04-16] MEDS: MIRALAX *UNIT DOSE* 17GM PACKET PO SCH (09:00)
--- NOTE | 2020-04-16 12:51 | IPNPDOC ---
Subjective Date Seen The patient was seen on 04/16/20. Subjective Chief Complaint/HPI Awake and alert and oriented. Denies any any weakness or gait instability in the last year. She was admitted in Mar 2018 for gait instability and fall. Objective Physical Examination General Exam: Positive: Alert, No Acute Distress Eye Exam: Positive: PERRLA, Conjunctiva & lids normal, EOMI; Negative: Sclera icteric ENT Exam: Positive: Atraumatic, Mucous membr. moist/pink, Pharynx Normal Neck Exam: Positive: Supple; Negative: JVD, thyromegaly Chest Exam: Positive: Clear to auscultation, Normal air movement Heart Exam: Positive: Rate Normal, Regular Rhythm, Normal S1, Normal S2; Negative: Murmurs, Rubs Abdomen Exam: Positive: Normal bowel sounds, Soft; Negative: Tenderness, Hepatospenomegaly Extremity Exam: Positive: Normal pulses; Negative: Clubbing, Cyanosis, Edema Assessment /Plan Assessment 69 year old female with PMH of CAD s/p stents placement, PVD s/p stents in b/l LE, DM, HTN, HLD, Carotid artery stenosis s/p CEA, OA was admitted for elective right hip arthroplasty due to advanced OA . Confusion resolved now. CT head showed old stroke in the right parieto-temporal region which happened after mar 2018. Could be due to pain meds. Carotid US showed greater than 70% occlusion in the left common carotid artery. H/o left carotid endarterectomy Will get MRI brain if OK with ortho. S/p Right hip replacement for advanced OA pain control and DVT prophylaxis as per ortho PT/OT Bowel regimen NICK on CKD vs progression of CKD. continue to hold losartan. CAD s/p stents placement Continue Coreg and statin . Will hold asa as on xarelto. DM FS ac and HS Lispro sliding scale Hold oral med HTN, continue amlodipine and coreg will hold losartan at present. HLD, statin, zetia. Left Carotid artery stenosis s/p CEA, PVD s/p stents in b/l Lower extremity Plan/VTE VTE Prophylaxis Ordered?: Yes VS, I&O, 24H, Fishbone Vital Signs/I&O Vital Signs Date Time Temp Pulse Resp B/P (MAP) Pulse Ox O2 Delivery O2 Flow Rate FiO2 04/16/20 08:38 62 155/60 04/16/20 06:10 98.3 18 98 Nasal Cannula 1.0 I&O- Last 24 Hours up to 6 AM 04/16/20 06:00 Intake Total 1950 ml Output Total 100 ml Balance 1850 ml Laboratory Data 24H LABS Laboratory Tests 2 04/15/20 16:32: Bedside Glucose (Misc Panel) 208H 04/15/20 20:24: Bedside Glucose (Misc Panel) 143H 04/15/20 22:27: Anion Gap 9, Glomerular Filtration Rate 28.2L, Calcium Level 8.8, Ammonia < 10 04/16/20 05:14: Urine Color YELLOW, Urine Appearance CLOUDYH, Urine pH 5.0, Urine Specific [place] 1.020, Urine Protein 2+H, Urine Glucose (UA) 3+H, Urine Ketones NEGATIVE, Urine Blood 1+H, Urine Nitrite NEGATIVE, Urine Bilirubin NEGATIVE, Urine Urobilinogen 0.2, Urine Leukocyte Esterase 1+H, Urine WBC (Auto) 27H, Urine RBC (Auto) 2, Urine Hyaline Casts (Auto) 0, Urine Bacteria (Auto) 1+H, Urine Squamous Epithelial Cells 15, Urine Yeast-Like Cells (Auto) LARGEH, Urine Sperm (Auto) 04/16/20 06:12: Anion Gap 8, Glomerular Filtration Rate 28.9L, Calcium Level 8.2L 04/16/20 06:16: Nucleated Red Blood Cells % (auto) 0.0 04/16/20 11:24: Bedside Glucose (Misc Panel) 269H CBC/BMP Laboratory Tests 04/15/20 22:27 04/16/20 06:12 04/16/20 06:16 Microbiology Microbiology 04/16/20 Urine Culture, Received Pending LOIS DUARTE MD Apr 16, 2020 12:51
[2020-04-16] MEDS: PERCOCET 5MG/325MG TAB PO PRN (12:55)
[2020-04-16 14:00] VITALS: BP 100/60
[2020-04-16] MEDS ORDERED: NORCO, ANEXSIA 5/325MG TABLET (HYDROcodone/ACETAMINOPHEN) PO PRN (14:45)
[2020-04-16 15:21] LABS: ABG BASE EXCESS -3.5 (-2.0-2.0); ABG HCO3 22.2 MEQ/L (22.0-26.0); ABG O2 SATURATION 95.3 % (95.0-99.0); ABG PARTIAL PRESSURE CO2 42.2 mmHg (35.0-45.0); ABG PARTIAL PRESSURE O2 76.6 mmHg (75.0-100.0); ABG STANDARD HCO3 21.5 MEQ/L (22.0-26.0); ABG TOTAL CO2 23.4 MEQ/L (23.0-31.0); ABG pH (ARTERIAL) 7.338 UNITS (7.350-7.450)
[2020-04-16] MEDS: RIVAROXABAN 10 MG TAB (XARELTO) PO SCH (17:24)
[2020-04-16 20:33] VITALS: BP 156/58
[2020-04-17] MEDS: NORCO, ANEXSIA 5/325MG TABLET (HYDROcodone/ACETAMINOPHEN) PO PRN ×3 (03:54→15:47)
[2020-04-17 06:00] VITALS: BP 136/46
[2020-04-17 06:49] LABS: HEMATOCRIT 29.1 % (36.0-47.0); HEMOGLOBIN 9.3 g/dl (12.0-15.5); MEAN CORPUSCULAR HEMOGLOBIN 30.1 pg (27.0-33.0); MEAN CORPUSCULAR VOLUME 94.2 fl (80.0-96.0); PLATELET COUNT, AUTOMATED 213 10^3/uL (150-450); RED BLOOD COUNT 3.09 10^6/uL (4.00-5.40); WHITE BLOOD COUNT 13.6 10^3/uL (4.0-10.0)
[2020-04-17] MEDS: MIRALAX *UNIT DOSE* 17GM PACKET PO SCH (08:23)
[2020-04-17] MEDS: ATORVASTATIN 20 MG TAB PO SCH (08:23)
[2020-04-17] MEDS: EZETIMIBE 10 MG TAB (ZETIA) PO SCH (08:23)
[2020-04-17] MEDS: MOM 30ML SUSPENSION UDC PO SCH (08:23)
[2020-04-17] MEDS: CARVedilol 12.5 MG TAB PO SCH ×2 (08:23→21:50)
[2020-04-17] MEDS: HumaLOG INSULIN (NovoLOG) PER UNIT SC SCH ×4 (08:24→20:19)
[2020-04-17] MEDS: SENOKOT S TAB PO SCH (08:24)
--- NOTE | 2020-04-17 11:12 | IPNPDOC ---
Subjective Date Seen The patient was seen on 04/17/20. Subjective Chief Complaint/HPI More awake and interactive today. Laughing and joking this morning. Reports that she slept well. Lots of pain so has not been able to work with PT much. Objective Physical Examination General Exam: Positive: Alert, No Acute Distress Eye Exam: Positive: PERRLA, Conjunctiva & lids normal, EOMI; Negative: Sclera icteric ENT Exam: Positive: Atraumatic, Mucous membr. moist/pink, Pharynx Normal Neck Exam: Positive: Supple; Negative: JVD, thyromegaly Chest Exam: Positive: Clear to auscultation, Normal air movement Heart Exam: Positive: Rate Normal, Regular Rhythm, Normal S1, Normal S2; Negative: Murmurs, Rubs Abdomen Exam: Positive: Normal bowel sounds, Soft; Negative: Tenderness, Hepatospenomegaly Extremity Exam: Positive: Normal pulses; Negative: Clubbing, Cyanosis, Edema Assessment /Plan Assessment 69 year old female with PMH of CAD s/p stents placement, PVD s/p stents in b/l LE, DM, HTN, HLD, Carotid artery stenosis s/p CEA, OA was admitted for elective right hip arthroplasty due to advanced OA . Confusion resolved now. CT head showed old stroke in the right parieto-temporal region which happened after mar 2018. Could be due to pain meds. Carotid US showed greater than 70% occlusion in the left common carotid artery. Follow up with Vascular as outpatient. H/o left carotid endarterectomy MRI could be done as we do not have information about the leg stents. S/p Right hip replacement for advanced OA pain control and DVT prophylaxis as per ortho PT/OT Bowel regimen NICK on CKD vs progression of CKD. continue to hold losartan. CAD s/p stents placement Continue Coreg and statin . Will hold asa as on xarelto. DM FS ac and HS Lispro sliding scale Hold oral med HTN, continue amlodipine and coreg will hold losartan at present. HLD, statin, zetia. Left Carotid artery stenosis s/p CEA, PVD s/p stents in b/l Lower extremity Plan/VTE VTE Prophylaxis Ordered?: Yes VS, I&O, 24H, Fishbone Vital Signs/I&O Vital Signs Date Time Temp Pulse Resp B/P (MAP) Pulse Ox O2 Delivery O2 Flow Rate FiO2 04/17/20 08:55 16 2/15/21 08:45 1.0 04/17/20 08:24 79 136/46 04/17/20 06:00 98.8 96 Nasal Cannula I&O- Last 24 Hours up to 6 AM 04/17/20 05:59 Intake Total 1450 ml Output Total 550 ml Balance 900 ml Laboratory Data 24H LABS Laboratory Tests 2 04/16/20 11:24: Bedside Glucose (Misc Panel) 269H 04/16/20 14:21: Bedside Glucose (Misc Panel) 165H 04/16/20 15:07: Blood Gas Bicarbonate Standard 21.5L, Arterial Blood pH 7.338L, Arterial Blood Partial Pressure CO2 42.2, Arterial Blood Partial Pressure O2 76.6, Arterial Blood Total CO2 23.4, Arterial Blood HCO3 22.2, Arterial Blood Base Excess - 3.5L, Arterial Blood Oxygen Saturation 95.3 04/16/20 16:27: Bedside Glucose (Misc Panel) 170H 04/16/20 19:56: Bedside Glucose (Misc Panel) 212H 04/17/20 06:20: Bedside Glucose (Misc Panel) 206H 04/17/20 06:34: Nucleated Red Blood Cells % (auto) 0.0 CBC/BMP Laboratory Tests 04/17/20 06:34 Microbiology Microbiology 04/16/20 Urine Culture - Final, Complete Yeast Like Organism LOIS DUARTE MD Apr 17, 2020 11:12
[2020-04-17] MEDS ORDERED: LORazepam 2 MG TAB PO ONE (11:15)
[2020-04-17] MEDS: ONDANSETRON 4MG/2ML VIAL IV PRN (13:22)
[2020-04-17 14:00] VITALS: BP 124/56
[2020-04-17] MEDS: RIVAROXABAN 10 MG TAB (XARELTO) PO SCH (17:53)
[2020-04-17] MEDS: ACETAMINOPHEN 500 MG TAB PO PRN (21:49)
[2020-04-17 22:00] VITALS: BP 126/18
[2020-04-18 06:00] VITALS: BP 126/54
[2020-04-18 06:27] LABS: CALCIUM LEVEL 9.1 MG/DL (8.8-10.2); CREATININE FOR GFR 2.17 MG/DL (0.55-1.30); GLOMERULAR FILTRATION RATE 24.1 (>45); POTASSIUM SERUM 4.6 MEQ/L (3.5-5.1)
[2020-04-18] MEDS: NORCO, ANEXSIA 5/325MG TABLET (HYDROcodone/ACETAMINOPHEN) PO PRN (07:59)
[2020-04-18] MEDS: HumaLOG INSULIN (NovoLOG) PER UNIT SC SCH ×3 (07:59→17:33)
[2020-04-18 08:42] VITALS: BP 124/50
[2020-04-18 09:11] VITALS: BP 124/50
[2020-04-18] MEDS: EZETIMIBE 10 MG TAB (ZETIA) PO SCH (09:12)
[2020-04-18] MEDS: CARVedilol 12.5 MG TAB PO SCH (09:12)
[2020-04-18] MEDS: ATORVASTATIN 20 MG TAB PO SCH (09:13)
[2020-04-18] MEDS: MIRALAX *UNIT DOSE* 17GM PACKET PO SCH (09:13)
[2020-04-18] MEDS: MOM 30ML SUSPENSION UDC PO SCH (09:13)
[2020-04-18] MEDS: SENOKOT S TAB PO SCH (09:13)
[2020-04-18 10:27] VITALS: BP 124/50
[2020-04-18] MEDS: ACETAMINOPHEN 500 MG TAB PO PRN (11:22)
[2020-04-18 13:19] VITALS: BP 130/58
[2020-04-18 13:30] VITALS: BP 130/58
[2020-04-18] MEDS: RIVAROXABAN 10 MG TAB (XARELTO) PO SCH (17:33)
== END 2020-04-18 18:45 | DRG 470 ==
LOC: M OR 09:24 → M MS5PR 15:56
PROVIDERS: ADMIT Orthopaedic Surgery; ATTEND Orthopaedic Surgery
PROC: 0SR90JA Replacement of Right Hip Joint with Synthetic Substitute, Uncemented, Open Approach (ICD-10-PCS; principal; 2020-04-14 12:30)
DX: M16.11 Unilateral primary osteoarthritis, right hip (principal); I12.9 Hypertensive chronic kidney disease with stage 1 through stage 4 chronic kidney disease, or unspecified chronic kidney disease; N18.9 Chronic kidney disease, unspecified; E11.22 Type 2 diabetes mellitus with diabetic chronic kidney disease; Z88.0 Allergy status to penicillin; Z79.899 Other long term (current) drug therapy; E78.00 Pure hypercholesterolemia, unspecified; I25.10 Atherosclerotic heart disease of native coronary artery without angina pectoris; Z95.2 Presence of prosthetic heart valve; E11.51 Type 2 diabetes mellitus with diabetic peripheral angiopathy without gangrene; Z79.82 Long term (current) use of aspirin; I25.2 Old myocardial infarction

== ENCOUNTER 2020-04-18 12:04 | Inpatient (IN) | payer MEDICARE ==
[~2020-04-18] VITALS: Ht 160 cm; Wt 86.2 kg
[~2020-04-18 12:04] MED LIST changes: -CLINDAMYCIN 900 MG in IV 1 EA IV ONE; -LR 1,000 ML IV ONE; +PERC5TAB12 PO; +XARE10TA PO
[2020-04-18] MEDS ORDERED: GLUCOSE 4GM CHEW TABLET PO PRN (18:30)
[2020-04-18] MEDS ORDERED: ONDANSETRON 4 MG ORAL DISINTEGRATING TAB PO PRN (18:30)
[2020-04-18] MEDS ORDERED: oxyCODONE 5MG TAB PO PRN (18:30)
[2020-04-18] MEDS ORDERED: DEXTROSE 50% 50 ML SYRINGE IV PRN (18:30)
[2020-04-18] MEDS ORDERED: GLUCAGON INJ 1MG VIAL SC PRN (18:30)
[2020-04-18] MEDS ORDERED: FLEET ENEMA PR PRN (18:30)
[2020-04-18] MEDS ORDERED: BISACODYL 10 MG SUPP PR PRN (18:30)
[2020-04-18] MEDS ORDERED: oxyCODONE 5MG TAB PO SCH (18:30)
[2020-04-18 18:50] VITALS: BP 127/60
--- OUTSIDE RECORDS SUMMARY | 2020-04-18 19:03 | CCD ---
Author Author [facility] Organization [facility] Address Unknown Phone Unavailable Care Team Providers Care Supervisor [employer] Name Role Phone Ramirez, L Arianna PA [...] SARAH, J [facility] Unavailable Unavailable ASRAH, J [facility]UEL [facility] Unavailable Unavailable SARAH, J [facility] Unavailable Unavailable SARAH, J [facility] Unavailable Unavailable SARAH, J [facility] Unavailable Unavailable SARAH, J [facility] Unavailable Unavailable SARAH, J [facility] Unavailable Unavailable SARAH, J [facility] Unavailable Unavailable SARAH, J [facility] Unavailable Unavailable SARAH, J [facility]GI[facility]EL [facility] Unavailable Unavailable SARAH, J MIGUEL [...] B Yoandy STOCKTON Unavailable Unavailable Fish, B Yaondy STOCKTON Unavailable Unavailable Fish, B Yoandy STOCKTON [...] E Delilah PA Unavailable Unavailable Leblanc, Enma TRUCK JUMPER Unavailable Unavailable Leblanc, Enma TRUCK JUMPER Unavailable Unavailable Leblanc, Enma TRUCK JUMPER Unavailable Unavailable Leblanc, Enma TRUCK JUMPER Unavailable Unavailable Leblanc, Enma TRUCK JUMPER Unavailable Unavailable Leblanc, Enma TRUCK JUMPER Unavailable Unavailable Leblanc, Enma TRUCK JUMPER Unavailable Unavailable Leblanc, Enma TRUCK JUMPER Unavailable Unavailable Leblanc, Enma TRUCK JUMPER Unavailable Unavailable Leblanc, Enma TRUCK JUMPER Unavailable Unavailable Leblanc, Enma TRUCK JUMPER Unavailable Unavailable Leblanc, Enma TRUCK JUMPER Unavailable Unavailable Leblanc, Enma TRUCK JUMPER Unavailable Unavailable Leblanc, Enma TRUCK JUMPER Unavailable Unavailable Leblanc, Enma TRUCK JUMPER Unavailable Unavailable Leblanc, Enma TRUCK JUMPER Unavailable Unavailable Leblanc, Enma TRUCK JUMPER Unavailable Unavailable Leblanc, Enma TRUCK JUMPER Unavailable Unavailable Leblanc, Enma TRUCK JUMPER Unavailable Unavailable Leblanc, Enma TRUCK JUMPER Unavailable Unavailable Leblanc, Enma TRUCK JUMPER Unavailable Unavailable Leblanc, Enma TRUCK JUMPER Unavailable Unavailable Leblanc, Enma TRUCK JUMPER Unavailable Unavailable Leblanc, Enma TRUCK JUMPER Unavailable Unavailable Leblanc, Enma TRUCK JUMPER Unavailable Unavailable Leblanc, Enma TRUCK JUMPER Unavailable Unavailable Leblanc, Enma TRUCK JUMPER Unavailable Unavailable Leblanc, Enma TRUCK JUMPER Unavailable Unavailable Leblanc, Enma TRUCK JUMPER Unavailable Unavailable Leblanc, Enma TRUCK JUMPER Unavailable Unavailable Leblanc, Enma TRUCK JUMPER Unavailable Unavailable Leblanc, Enma TRUCK JUMPER Unavailable Unavailable Leblanc, Enma TRUCK JUMPER Unavailable Unavailable Leblanc, Enma TRUCK JUMPER Unavailable Unavailable Leblanc, Enma TRUCK JUMPER Unavailable Unavailable Leblanc, Enma TRUCK JUMPER Unavailable Unavailable Leblanc, Enma TRUCK JUMPER Unavailable Unavailable Leblanc, Enma TRUCK JUMPER Unavailable Unavailable Leblanc, Enma TRUCK JUMPER Unavailable Unavailable Leblanc, Enma TRUCK JUMPER Unavailable Unavailable Leblanc, Enma TRUCK JUMPER Unavailable Unavailable Leblanc, Enma TRUCK JUMPER Unavailable Unavailable Leblanc, Enma TRUCK JUMPER Unavailable Unavailable Leblanc, Enma TRUCK JUMPER Unavailable Unavailable Leblanc, Enma TRUCK JUMPER Unavailable Unavailable Leblanc, Enma TRUCK JUMPER Unavailable Unavailable Leblanc, Enma TRUCK JUMPER Unavailable Unavailable Leblanc, Enma TRUCK JUMPER Unavailable Unavailable Leblanc, Enma TRUCK JUMPER Unavailable Unavailable Leblanc, Enma TRUCK JUMPER Unavailable Unavailable Leblanc, Enma TRUCK JUMPER Unavailable Unavailable Leblanc, Enma TRUCK JUMPER Unavailable Unavailable Leblanc, Enma TRUCK JUMPER Unavailable Unavailable Leblanc, Enma TRUCK JUMPER Unavailable Unavailable Leblanc, Enma TRUCK JUMPER Unavailable Unavailable Leblanc, Enma TRUCK JUMPER Unavailable Unavailable Leblanc, Enma TRUCK JUMPER Unavailable Unavailable Leblanc, Enma TRUCK JUMPER Unavailable Unavailable Leblanc, Enma TRUCK JUMPER Unavailable Unavailable Leblanc, Enma TRUCK JUMPER Unavailable Unavailable Leblanc, Enma TRUCK JUMPER Unavailable Unavailable Leblanc, Enma TRUCK JUMPER Unavailable Unavailable Leblanc, Enma TRUCK JUMPER Unavailable Unavailable Leblanc, Enma TRUCK JUMPER Unavailable Unavailable Leblanc, Enma TRUCK JUMPER Unavailable Unavailable Leblanc, Enma TRUCK JUMPER Unavailable Unavailable Leblanc, Enma TRUCK JUMPER Unavailable Unavailable Leblanc, Enma TRUCK JUMPER Unavailable Unavailable Re-disclosure Warning The records that [...] is protected by Article 27-F of the [facility] Public Health law. If you continue you may have access to information: Regarding HIV / AIDS; Provided by facilities licensed or operated by the [facility] Office of Mental Health; or Provided by the [facility] Office for People With Developmental Disabilities. If such information is present, then the following [facility] mandated warning applies: This information has been [...] law may result in a fine or halfway sentence or both. A general authorization for the release of medical or other information is NOT sufficient authorization for further disc losure. Allergies and Adverse Reactions Type Description Substance Reaction Status Data Source(s ) Penicillin (For Allergies Use Only) Penicillin (For Allergie s Use Only) Penicillin (For Allergies Use Only) pass out, vomitting Active eCW 1 ([facility]) Family History Family Member Name Family Member Gender Family Member Status Date o f Status Description Data Source(s) Unknown Male Problem [facility] ([facility]) Encounters Encounter Providers Location Date Indications Data Source(s ) Office Visit Attender: Janine DONOVAN Physical Therapy 02:00:00 PM EST [facility] ([facility]) Office Visit Attender: DARSHANA DONOVAN Medical Buildin g 04/06/2020 01:00:00 PM EST MED[facility] ([facility]) Outpatient Attender: MIGUEL SMITH DPM PC 03/27/2020 09:22:00 AM EST - 03/27/2020 09:22:00 AM EST [facility] Outpatient Attender: Arianna LUCIO.MILAN-SJP.MILAN 08/2020 12:00:00 AM EST - 03/08/2020 12:20:14 PM EST [facility] Office Visit Attender: Yoandy Brown MD Physical Therapy 2019 12:15:00 PM EST [facility] ([facility]) Office Visit Attender: DARSHANA DONOVAN Medical Buildin g 02/10/2020 08:00:00 AM EST [facility] ([facility] MD) Outpatient Attender: MIGUEL SMITH DPM PC 12/15/2019 08:48:00 AM EDT - 12/15/2019 08:48:00 AM EDT [facility] Outpatient Attender: MIGUEL SMITH DPM [facility] 10/06/2019 08:28:00 AM EDT - 10/06/2019 08:28:00 AM EDT [facility] Outpatient Attender: Enma Leblanc [facility] 09/14/2019 11:48:02 AM EDT [facility] Outpatient Attender: Enma Leblanc [facility] 08/10/2019 07:34:52 PM EDT [facility] Outpatient Attender: Enma Leblanc [facility] 07/31/2019 12:09:56 AM EDT [facility] Outpatient Attender: Arianna DONOVAN SJSana.MILAN-SJP.MILAN 12:00:00 AM EDT - 07/27/2019 10:18:51 AM EDT [facility] Outpatient Attender: MIGUEL SMITH DPM PC 06/24/2019 02:42:00 PM EDT - 06/24/2019 02:42:00 PM EDT [facility] Outpatient Referrer: Delilah DONOVAN 06/11/2019 06:01:0 0 AM EDT [facility] [address] [place] [address] 05/30/2019 12:00:00 AM EDT eCW1 ([facility]) [facility] [address] [place] [address] 05/28/2019 12:00:00 AM EDT eCW1 ([facility]) [facility] [address] [place] [id number] 05/25/2019 12:00:00 AM EDT eCW1 ([facility]) [facility] [address] [place] [address] 05/24/2019 12:00:00 AM EDT eCW1 ([facility]) Outpatient Referrer: Arianna ROBERT-SJPJessicaMILAN 02/2020 12:00:00 AM EDT [facility] Outpatient Referrer: Delilah DONOVAN 04/07/2019 10:16:0 0 AM EST [facility] Outpatient Referrer: Delilah DONOVAN 03/25/2019 03:40:0 0 PM EST [facility] Outpatient Referrer: Delilah DONOVAN 03/22/2019 06:07:0 0 AM EST [facility] Outpatient Attender: Arianna ROBERT-SJP.MILAN 10:27:35 AM EST - 01/27/2019 11:40:32 AM EST [facility] Medications Medication Brand Name Start Date Product [...] Mupirocin 04/04/2020 12:00:00 AM EST active [facility] ([facility] chlorhexidine gluconate 40 MG/ML Medicated Liquid Soap [Hibi clens] Hibiclens 04/04/2020 12:00:00 AM EST active [facility] ([facility]) chlorhexidine gluconate 40 MG/ML Medicated Liquid Soap [Hibi clens] Hibiclens 04/03/2020 12:00:00 AM EST completed [facility] ([facility]) Mupirocin 0.02 MG/MG Topical Ointment Mupirocin 04/03/2020 12:00:00 AM EST completed [facility] ([facility]) BLOOD SUGAR DIAGNOSTIC 03/03/2020 [...] by mouth 2 (two) times a day [facility] 300 mg 02/01/2020 12:00:00 AM EST tablet [...] HFA) 108 (90 Base) M CG/ACT inhaler [id number] 05/24/2019 12:00:00 AM EDT 2 {puff} aborted 2 puffs [facility] 200 ACTUAT Albuterol 0.09 MG/ACTUAT Mete red Dose Inhaler [ProAir] ProAir HFA 108 (90 Base) MCG/ACT ProAir HFA 108 (90 Base) MCG/ACT 05/24/2019 12:00:00 AM EDT active 2 puffs as neede d eCW1 ([facility]) doxycycline hyclate 100 MG Oral Capsule Doxycycline Hy clate 100 MG Doxycycline Hyclate 100 MG 05/24/2019 12:00:00 AM EDT active 1 capsule eCW1 ([facility]) 90 mcg/actuation 05/24/2019 12:00:00 AM EDT HFA aerosol inha ler 8 INHALE 2 PUFFS EVERY 4 HOURS NEEDED INHALE 2 PUFFS EVERY 4 HOURS NEEDED SOLD: 05/24/2019 [facility] canagliflozin 300 MG Oral Tablet [Invokana] INVOKANA 3 00 MG TABS INVOKANA 300 MG TABS 04/20/2019 12:00:00 AM EST 1 {tbl} Oral active Take 1 tablet by mouth daily [facility] 300 mg 04/20/2019 12:00:00 AM EST tablet [...] active Take 10 mg by mouth daily [facility] 10 mg 04/19/2019 12:00:00 AM EST tablet [...] type / Coverage type Policy ID Covered green party ID Covered green party's relationship to rhodes Policy Rhodes Plan Information MEDICARE [id number] SP [id number] MEDICARE [id number] P37 MEDICARE PART A [facility] [id number] 18 [id number] MEDICARE [id number] MEDICARE [id number] Araceli [id number] Medicaid P [id number] S [id number] [facility] [id number] SP [id number] [facility] MEDICARE [id number] Araceli [id number] MEDICAID [id number] SP [id number] MEDICARE PART A -CLINIC [id number] 18 [id number] [place] [id number] 18 [id number] MEDICARE C [id number] S [id number] [id number] [facility](MCAID) O [id number] S [id number] MEDICAID M [id number] MEDICARE [id number] SP [id number] [facility] MEDICAID [id number] Araceli [id number] [facility] MEDICAID [id number] Araceli [id number] Medicaid [place] Medigap Part B [id number] Self [id number] Medicare [place] Medicare Primary [id number] Self [id number] [place] [id number] Self [id number] [place] Primary [id number] Self [id number] [place]ig[place] [id number] Self [id number] [place] Primary [id number] Self [id number] MEDICARE [id number] SP [id number] D MEDICARE [id number] SP [id number] [employer](MCAID) O [id number] S [id number] MEDICARE C [id number] S [id number] D Medicaid [place] Medig[place] Part B [id number] Self [id number] [place] Primary [id number] Self [id number] [place] Medig[place] Part B [id number] Self [id number] [facility] Community Plan Commercial [id number] Self [id number] UNHC COMMUNITY PLAN [id number] SP [id number] [facility] MEDICAID [id number] Araceli [id number] [employer](MCAID) O [id number] S [id number] UNHC COMMUNITY PLAN MCDO [id number] SP [id number] [facility](MCAID) O [id number] S [id number] Medicaid Dental S UNAVAILABLE S UN AVAILABLE Problems, Conditions, and Diagnoses Code Display Name Description Problem Type Effective Dates Data Source(s) 880564598 Ingrowing nail Ingrowing nail Problem 06/24/2019 12:00: 00 AM EDT [facility] ([facility]) [id number] Dystrophia unguium Dystrophia unguium Problem 12:00:00 AM EDT [facility] ([facility]) [id number] Pain in limb Pain in limb Problem 06/24/2019 12:00:00 A M EDT [facility] ([facility]) Type 2 diabetes mellitus with diabetic p eripheral angiopathy without gangrene Type 2 diabetes mellitus with diabetic peripheral angiopathy without gangrene Problem 06/24/2019 12:00:00 AM EDT [facility] ([facility]) [id number] 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 Problem 06/24/2019 12:00:00 AM EDT [facility] ( [facility]) Corns and callosities Corns and callosities Problem 06/24/2019 12:00:00 AM EDT [facility] ([facility]) [id number] Essential hypertension Essential hypertension Problem 06/24/2019 12:00:00 AM EDT [facility] ([facility]) [id number] Pain in left foot Pain in left foot Diagnosis 03/27/2020 09:22:00 AM [facility] G12985 Pain in right foot Pain in right foot Diagnosis 09:22:00 AM [facility] L84 Corns and callosities Corns and callosities Diagnosis 03/27/2020 09:22:00 AM [facility] L603 Nail dystrophy Nail dystrophy Diagnosis 03/27/2020 09:22: 00 AM [facility] E1151 Type 2 diabetes mellitus wit h diabetic peripheral angiopathy without gangrene Type 2 diabetes mellitus with diabetic p eripheral angiopathy without gangrene Diagnosis 03/27/2020 09:22:00 AM [facility] 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 Occlusion and stenosis of bilateral morrison Diagnosis 03/08/2020 11:11:29 AM [facility] E66.01 Morbid (severe) obesity due to excess ca lories Morbid (severe) obesity due to excess ca Diagnosis 03/08/2020 11:11:29 AM [facility] F17.200 Nicotine dependence, unspecified, uncomp licated Nicotine dependence, unspecified, uncomp Diagnosis 03/08/2020 11:11:29 AM [facility] E78.2 Mixed hyperlipidemia Mixed hyperlipidemia Diagnosis 03/08/2020 11:11:29 AM [facility] I25.5 Ischemic cardiomyopathy Ischemic cardiomyopathy Diagno sis 03/08/2020 11:11:29 AM [facility] Z98.61 Coronary angioplasty status Coronary angioplasty statu s Diagnosis 03/08/2020 11:11:29 AM [facility] I73.9 Peripheral vascular disease, unspecified Peripheral vascular disease, unspecified Diagnosis 03/08/2020 11:11:29 AM [facility] E11.9 Type 2 diabetes mellitus without complic ations Type 2 diabetes mellitus without complic Diagnosis 03/08/2020 11:11:29 AM [facility] I10 Essential (primary) hypertension Essential (primary) h ypertension Diagnosis 03/08/2020 11:11:29 AM [facility] Surgeries/Procedures Procedure Description Date Indications Data Source(s) X-Ray Hip Unilateral With Pelvis 2-3 Views 02/14/2020 12:00:00 AM EST [facility] ([facility] ) Pare Hyperkeratotic Lesion, 2-4 12/15/2019 12:00:00 AM EDT MED[facility] ([facility]) Pare Hyperkeratotic Lesion, 2-4 10/06/2019 12:00:00 AM EDT [facility] ([facility]) Pare Hyperkeratotic Lesion, 2-4 06/24/2019 12:00:00 AM EDT [facility] ([facility]) Results ID Date Data Source [id number] 04/09/2020 10:30:00 AM EST DOC Name Value Range Interpretation Code Description Data Amara rce(s) Supporting Document(s) SARS coronavirus 2 RNA Not Detected [facility] This lab was ordered by [facility] and reported by [facility]. ID Date Data Source [id number] 04/03/2020 09:52:00 AM EST [facility] ([facility] Walton MD) Name Value Range Interpretation Code Description Data Amara rce(s) Supporting Document(s) Erythrocyte sedimentation rate by 2H Westergren method 49 mm/hr 0-30 Above high normal [facility] ([facility]erm[facility] Walton MD) ID Date Data Source [id number] 04/03/2020 09:52:00 AM EST [facility] ([facility]ermilo Walton [...] Walton MD) Laboratory test finding (navigational concept) 29.9 pg 2 7.0-33.0 Normal (applies to non-numeric results) [facility] (Hermilo Walton MD) Laboratory test finding (navigational concept) 13.5 % 1 1.5-14.5 Normal (applies to non-numeric results) NURIA (Hermilo Walton MD) Laboratory test finding (navigational concept) 32.1 [...] (Hermilo Walton MD) ID Date Data Source [id number] 04/03/2020 09:52:00 AM EST [facility] ([facility]ermilo Walton [...] Little GFR Left</content>
<content>ESRD GFR <15 on SALES PLANNING ANALYST</content>
<content></content> Laboratory test finding (navigational concept) 136 [...] (Hermilo Walton MD) ID Date Data Source [id number] 04/03/2020 09:52:00 AM EST [facility] ([facility]erm[facility] Walton [...] MYOCARDIAL INFARCTION 2.5-3.5 ID Date Data Source [id number] 04/03/2020 09:52:00 AM EST [facility] ([facility]) Name Value Range Interpretation Code Description Data Amara rce(s) Supporting Document(s) Erythrocyte sedimentation rate by Westergren method 49 mm/hr 0-30 [facility] ([facility]) ID Date Data Source [id number] 04/03/2020 09:52:00 AM EST [facility] ([facility]) Name Value Range Interpretation Code Description Data Amara rce(s) Supporting Document(s) White Blood Count 9.7 10 4.0-10.0 [facility] ([facility]) Red Blood Count 4.28 10 4.00-5.40 [facility] ([facility]) Hematocrit 39.9 % 36.0-47.0 [facility] ([facility]) Hemoglobin 12.8 g/dL 12.0-15.5 [facility] ([facility]) Mean Corpuscular Volume 93.2 fl 80.0-96.0 M EDENT ([facility]) Mean Corpuscular HGB Conc 32.1 g/dL 32.0-36.5 [facility] ([facility]) Mean Corpuscular Hemoglobin 29.9 pg 27.0-33.0 [facility] ([facility]) Platelet Count, Automated 278 10 150-450 [facility] ([facility]) Red Cell Distribution Width 13.5 % 11.5-14.5 [facility] ([facility]) [place] % 7.2 % 0.0-5.0 [facility] Lymph % 21.7 % 24.0-44.0 [facility] ([facility]) Neutrophils % 66.0 % 36.0-66.0 [facility] ([facility]) Eos % 3.5 % 0.0-3.0 [facility] ([facility]) Immature Granulocyte % 0.6 % 0-3.0 [facility] ([facility]) Baso % 1.0 % 0.0-1.0 [facility] ([facility]) Lymph # 2.1 10 1.5-5.0 [facility] ([facility]) Neutrophils # 6.4 10 1.5-8.5 [facility] ([facility]) Nucleated Red Blood Cell % 0.0 % 0-0 MED ENT ([facility]) [place] # 0.7 10 0.0-0.8 [facility] ([facility]) Baso # 0.1 10 0.0-0.2 [facility] ([facility] Eos # 0.3 10 0.0-0.5 [facility] ([facility]) ID Date Data Source [id number] 04/03/2020 09:52:00 AM EST [facility] ([facility]) Name Value Range Interpretation Code Description Data Amara rce(s) Supporting Document(s) Glucose, Fasting 387 mg/dL 70-100 [facility] ([facility]) Blood Urea Nitrogen 36 mg/dL 7-18 [facility] ([facility]) Creatinine For GFR 1.84 mg/dL 0.55-1.30 [facility] ([facility]) Glomerular Filtration Rate 29.1 MED ENT ([facility]) <content>Units are mL/min/1.73 m2</content>
<content></content>
<content>Chronic Kidney Disease Staging per NKF:</content>
<content></content>
<content>Stage I & II GFR >=60 Normal to Mildly Decreased</content>
<content>Stage III GFR 30- 59 Moderately Decreased</content>
<content>Stage IV GFR 15-29 Severely Decreased</content>
<content>Stage V GFR <15 Very Little GFR Left</content>
<content>ESRD GFR <15 on SALES PLANNING ANALYST</content>
<content></content> Sodium Level 136 meq/L 136-145 [facility] ([facility]) Potassium Serum 4.5 meq/L 3.5-5.1 [facility] ([facility]) Carbon Dioxide Level 27 meq/L 21-32 [facility] ([facility]) Chloride Level 104 meq/L 98-107 [facility] ([facility]) Ast/Sgot 20 U/L 7-37 [facility] Anion Gap 5 meq/L 8-16 [facility] ([facility]) Calcium Level 9.6 mg/dL 8.8-10.2 [facility] ([facility]) Alt/SGPT 36 U/L 12-78 [facility]) Alkaline Phosphatase 266 U/L 45-117 [facility] ([facility]) Total Protein 7.2 GM/DL 6.4-8.2 [facility] ([facility]) Albumin 3.5 GM/DL 3.2-5.2 [facility] ([facility]) Bilirubin,Total 0.5 mg/dL 0.2-1.0 [facility] ([facility]) Albumin/Globulin Ratio 0.9 1.2-2.2 [facility] ([facility]) ID Date Data Source [id number] 04/03/2020 09:52:00 AM EST [facility] ([facility]) Name Value Range Interpretation Code Description Data Amara rce(s) Supporting Document(s) Prothrombin Time 12.3 s 12.5-14.3 [facility] ([facility]) Inr 0.90 [facility] ([facility]) THERAPUTIC HUMAN INR VALUES INDICATIONS NORMAL RANGES PROPHYLAXIS/TREATMENT OF: VENOUS THROMBOSIS 2.0-3.0 PULMONARY EMBOLISM 2.0-3.0 PREVENTION OF SYSTEMIC EMBOLISM FROM: TISSUE HEART VALVES 2.0-3.0 ACUTE MYOCARDIAL INFARCTION 2.0-3.0 VALVULAR HEART DISEASE 2.0-3.0 ATRIAL FIBRILLATION 2.0-3.0 MECHANICAL VALVES(HIGH RISK) 2.5-3.5 RECURRENT MYOCARDIAL INFARCTION 2.5-3.5 ID Date Data Source [id number] 03/24/2020 01:10:00 PM EST [facility] ([facility]) Name Value Range Interpretation Code Description Data Amara rce(s) Supporting Document(s) Erythrocyte sedimentation rate by Westergren method Laboratory test result [facility] ([facility]) ID Date Data Source [id number] 03/24/2020 01:09:00 PM EST [facility] ([facility]) Name Value Range Interpretation Code Description Data Amara rce(s) Supporting Document(s) EKG Laboratory test result [facility] ([facility]) ID Date Data Source [id number] 03/24/2020 01:08:00 PM EST [facility] ([facility]) Name Value Range Interpretation Code Description Data Amara rce(s) Supporting Document(s) Chest x-ray Laboratory test result MEDEN T ([facility]) ID Date Data Source [id number] 02/16/2020 10:19:00 AM EST [facility] ([facility]) Name Value Range Interpretation Code Description Data Amara rce(s) Supporting Document(s) Laboratory test finding (navigational concept) Laboratory test result [facility] ([facility]) ID Date Data Source [id number] 05/24/2019 11:03:00 AM EDT [facility] Name Value Range Interpretation Code Description Data Amara rce(s) Supporting Document(s) SARS CORONAVIRUS 2 RNA [facility] This lab was ordered by [facility] and reported by [facility]. ID Date Data Source RESPIRATORY PANEL 05/24/2019 12:00:00 AM EDT [facility] Name Value Range Interpretation Code Description Data Amara rce(s) Supporting Document(s) This respiratory PCR panel detects Influenza A H1, H3 and RESPIRATORY PANEL eCW1 ([facility]) ID Date Data Source [id number] 05/13/2019 04:41:23 PM EDT [facility] Name Value Range Interpretation Code Description Data Amara rce(s) Supporting Document(s) &PDF [facility] [id number] hdG [file] AgICAgICAgICAgICAgICAgICAgICAgICAgICAgICAgICAgICAgICAgICAgICAgICAgICAgICAgICAgIC BuIYNqRYLaPZOpCN1XGBTyVQZuFLCjWGXcNFWjAHSl ICAgICAgICAgICAgICAgICAgICAgICAgICAgICAgICAgICAgICAgICAgICAgICAgICAgICAgICAgICAg HVEpIZEeKUOfHVVlSRMvMVRaMOUiLT0OSREsPKCbFOKyVWCiNKIoLPTvQKSkWMBkMOVeBFKnDHNmUNUh ICAgICAgICAgICAgICAgICAgICAgICAgICAgICAgIC FuMKQkCIHiIHWiVGPmLGBgSOEpNFGzPXVtZBJfRTZdND4GAJNyGNWzLAXcEANcIRWgWVFoHRXhZWZgTY AgICAgICAgICAgICAgICAgICAgICAgICAgICAgICAgICAgICAgICAgICAgICAgICAgICAgICAgICAgIC TiNVEgDVGuSBWyDHPbTZ1BNXMdHGFuHBWqKIMeTYBp ICAgICAgICAgICAgICAgICAgICAgICAgICAgICAgICAgICAgICAgICAgICAgICAgICAgICAgICAgICAg QIEgCZOvYFIoWLKdTCSqUUYrVCGoOZRdUO8UHTBrYBLuALZmUTIcEYPkEHArFUUlEQGbTYWzXPNuGZAe ICAgICAgICAgICAgICAgICAgICAgICAgICAgICAgIC HkJVRuTYIzGANbEAUoCBYoOUAiCZNrMRFtVZNsCKPfJXYjIW1OAOMdKXKdEGHtYYXvNDAkMVJiGYEjAS AgICAgICAgICAgICAgICAgICAgICAgICAgICAgICAgICAgICAgICAgICAgICAgICAgICAgICAgICAgIC LuXDNaKGSvGEVsDGSuOHJpPW1HRVQqHMZrROJeSUOq ICAgICAgICAgICAgICAgICAgICAgICAgICAgICAgICAgICAgICAgICAgICAgICAgICAgICAgICAgICAg GIXiBZQiJTKfWRCkTATrILOmVHInUHBpWGVmNW7LYHVpPTIlBEHcXWFdLHTaJBOfAYYoYSWxZSKtKOKg ICAgICAgICAgICAgICAgICAgICAgICAgICAgICAgIC EuJWPxZEJqKORzXXIeSRYdWUHqJFFwMJSzUPDyAXOoDHOeIGBaMM2SRNOfLBGvTQRqPLEsELVdVWQvLQ AgICAgICAgICAgICAgICAgICAgICAgICAgICAgICAgICAgICAgICAgICAgICAgICAgICAgICAgICAgIC WqOWOoBTEoBHRtIBGlEWNnZZMvCC2QXC40xNOcl6Q4 JKQrBM9jduy/Oy7KHDdddpFxpVDgNI8JHoYzPI5nwo9TWsSqOG0guf5PUCjQNyLrU1E7zNUpBEKbMXPY LqKyD36nZZjcPi09IJcfCDPwQxRpXKh5Fg0SNtOtU6diBGXcPgX9RWRwHhP2FAOpVlSkAGwzDR5Ue9Pj dCAyDQo+Zk2WSF9ay6GmEQduAHKpBK1bun4SWQuOQb QxS7S7yFKfO6P1PWofTv1ICZLbQWHeVQWeYAZHSEhfSK1SLA5blhA4RK2TuORwZMPzSPDykAKiNNe6B4 1tvKNaFUehSV4KWSZ+Allyson+Vv5TRRUsSTXkVAYrVyXrEVLXPkJwG58cbDPmADTtPZI1BLDqZh5HAYKaG1 QdtzKvxRtdlkEvHUHbEQAEOS4FUIhajdGptZXwnGrl ZV00hSdlJC4ICa2IMoWoLC2wbl7BgERvFt2TYPUnSG7PGEXvBJHxTAIuFOW0PHVhJnFhEWbiXUUvBZEc ULW4TOFeCFYsWK1CPoTiLUWtQUO3GuUiHJOvMQYavz1IISVoAPXpTzN3JEPbCGWmDJEfSSddYQNkLTCj SHx1VEIrOYGiBY3IEgOiNHBjEGR6ZWDrUUIvISLoev 9ZIDLgHRDmOQn0MtInXCAsPCAmECpdNRDvLMGnLxM0BGSaAVNiEL7SIpTyUSIfZFJ9CTepBBYaJNPyum 5SPKJwVHKdSUAiKbJrNIIuJDXaDJebOVFqAPM8SnRiJZItSLMyIP0PByUsNMMqXLR6QQLeSHAvCNKyfp 2CDFQaWKZfJMw0DsDnEACqSEMiEHigQPRrAPD2UUG9 RZYdEZCeNQ0NAyAeUNBxPLQuZqMeORHiRNAmcx9RABAbKTHkFRabTOVzAFHoNICvTFoyIEFjKGX1AOFa HUByZDUuZX7GSmKzGVQsKGGhBPyeTHXfXTIuyc7VAWWeFTCvXczwLpCmMVDdZAYxCBb5qdMmfSDwERi6 WQ4OP4RmkhBuFUwBCt8He182HIY1XJAgFa4BO4ueDw 1nLTYsAQVCTj4ALSv1Y3MsSJUjJuTvJ0YlUQTmRGcbYYziHBNaFkJlNPi2UFN+VKm5NWNsPrJ1OrPmNH Z1TNEcDKQnOsOkGpZbZbX0THvvOw4tECKETl1+UUksmVAzeOmhZNVUOtQ0RNu4OQydASGNFl3R Procedure Social History Code Duration Value Status Description Data Source(s ) Alcohol intake 03/08/2020 12:00:00 AM EST No completed [facility] Cigarette pack-years 03/08/2020 12:00:00 AM EST UNK completed [facility] Cigarettes smoked current (pack per day) - Reported 03/08/19 12:00:00 AM EST UNK completed [facility] Smoking 03/08/2020 12:00:00 AM EST Current every day smoker co mpleted Current every day smoker [facility] Vital Signs ID Date Data Source UNK Name Value Range Interpretation Code Description Data Source(s) Respiratory rate 14 /min 14 /min [facility] ( [facility]) Body mass index (BMI) [Ratio] 31.2 kg/m2 31.2 k g/m2 [facility] ([facility]) Body weight 168.12 [lb_av] 168.12 [lb_av] MEDEN T ([facility]) Body height 61.5 [in_i] 61.5 [in_i] [facility] ([facility]) 5'1.50" Body temperature 96.9 [degF] 96.9 [degF] [facility] ([facility]) Heart rate 65 /min 65 /min [facility] ([facility]) Diastolic blood pressure 85 mm[Hg] 85 mm[Hg] [facility] ([facility]) Systolic blood pressure 141 mm[Hg] 141 mm[Hg] M EDENT ([facility]) Oxygen saturation in Arterial blood by Pulse oximetry 95 % 95 % [facility] Body mass index (BMI) [Ratio] 29.29 kg/m2 29.29 kg/m2 [facility] Body weight 68.04 kg 68.04 kg [facility] Body height 152.4 cm 152.4 cm [facility] Heart rate 85 /min 85 /min [facility] Diastolic blood pressure 60 mm[Hg] 60 mm[Hg] [facility] Systolic blood pressure 118 mm[Hg] 118 mm[Hg] [facility] Body mass index (BMI) [Ratio] 27.9 kg/m2 27.9 k g/m2 [facility] ([facility]) Body weight 150.00 [lb_av] 150.00 [lb_av] MEDEN T ([facility]) Body height 61.5 [in_i] 61.5 [in_i] [facility] ([facility]) 5'1.50" Body temperature 97.3 [degF] 97.3 [degF] [facility] ([facility]) Diastolic blood pressure 71 mm[Hg] 71 mm[Hg] eCW1 ([facility]) Systolic blood pressure 132 mm[Hg] 132 mm[Hg] e CW1 ([facility]) Body temperature 97.9 [degF] 97.9 [degF] eCW1 ( [facility]) Respiratory rate 22 /min 22 /min eCW1 ([facility]) Heart rate 66 /min 66 /min eCW1 ([facility]) Body mass index (BMI) [Ratio] 37.30 kg/m2 37.30 kg/m2 W1 ([facility]) Body height 60 [in_us] 60 [in_us] eCW1 ([facility] Body weight Measured 191 [lb_av] 191 [lb_av] eC W1 ([facility]) Patient Treatment Plan of Care Planned Activity Planned Date Details Description Data Source (s) Ticagrelor 60 MG Oral Tablet 02/02/2020 12:00:00 AM EST [facility] albuterol (PROVENTIL HFA;VENTOLIN HFA) 108 (90 Base) M CG/ACT inhaler 05/24/2019 12:00:00 AM EDT [facility] 200 ACTUAT Albuterol 0.09 MG/ACTUAT Metered Dose Inhal er [ProAir] 05/24/2019 12:00:00 AM EDT eCW1 ([facility]) doxycycline hyclate 100 MG Oral Capsule 05/24/2019 12:00:00 AM EDT eCW1 ([facility]) canagliflozin 300 MG Oral Tablet [Invokana] 04/20/2019 12:00:00 AM EST [facility] Amlodipine 10 MG Oral Tablet 04/19/2019 12:00:00 AM EST [facility]
[2020-04-18] MEDS: HumaLOG INSULIN (NovoLOG) PER UNIT SC SCH (20:36)
[2020-04-18] MEDS ORDERED: TICAGRELOR 90 MG TABLET (BRILINTA) PO SCH (21:00)
[2020-04-18] MEDS: DOCUSATE SODIUM 100MG CAPSULE PO SCH (21:08)
[2020-04-18] MEDS: ACETAMINOPHEN 500 MG TAB PO SCH (21:08)
[2020-04-18] MEDS: SENNA 8.6 MG TAB (SENOKOT) PO SCH (21:08)
[2020-04-18] MEDS: CARVedilol 12.5 MG TAB PO SCH (21:09)
[2020-04-19 04:17] VITALS: BP 142/65
[2020-04-19 07:08] LABS: BASO # 0.1 10^3/uL (0.0-0.2); BASO % 0.9 % (0.0-1.0); EOS # 0.4 10^3/uL (0.0-0.5); EOS % 3.7 % (0.0-3.0); HEMATOCRIT 29.9 % (36.0-47.0); HEMOGLOBIN 9.7 g/dl (12.0-15.5); LYMPH % 20.5 % (24.0-44.0); MEAN CORPUSCULAR HEMOGLOBIN 29.8 pg (27.0-33.0); MEAN CORPUSCULAR HGB CONC 32.4 g/dl (32.0-36.5); MONO # 1.3 10^3/uL (0.0-0.8); MONO % 13.7 % (2.0-8.0); NEUTROPHILS # 5.9 10^3/uL (1.5-8.5); NEUTROPHILS % 60.6 % (36.0-66.0); PLATELET COUNT, AUTOMATED 280 10^3/uL (150-450); RED BLOOD COUNT 3.25 10^6/uL (4.00-5.40); WHITE BLOOD COUNT 9.7 10^3/uL (4.0-10.0)
[2020-04-19 07:25] LABS: ALBUMIN 2.5 GM/DL (3.2-5.2); BILIRUBIN,TOTAL 0.7 MG/DL (0.2-1.0); CALCIUM LEVEL 8.7 MG/DL (8.8-10.2); CREATININE FOR GFR 1.98 MG/DL (0.55-1.30); GLOMERULAR FILTRATION RATE 26.8 (>45); POTASSIUM SERUM 4.5 MEQ/L (3.5-5.1); TOTAL PROTEIN 6.6 GM/DL (6.4-8.2)
[2020-04-19] MEDS: HumaLOG INSULIN (NovoLOG) PER UNIT SC SCH ×4 (08:15→20:53)
[2020-04-19] MEDS ORDERED: PILL CUTTER 1 EACH XX PRN (08:15)
[2020-04-19] MEDS: DOCUSATE SODIUM 100MG CAPSULE PO SCH ×2 (08:15→20:51)
[2020-04-19] MEDS: ATORVASTATIN 20 MG TAB PO SCH (08:16)
[2020-04-19] MEDS: PANTOPRAZOLE 40MG TAB (PROTONIX) PO SCH (08:16)
[2020-04-19] MEDS: ACETAMINOPHEN 500 MG TAB PO SCH ×3 (08:16→20:53)
[2020-04-19] MEDS: CARVedilol 12.5 MG TAB PO SCH ×2 (08:16→20:52)
[2020-04-19] MEDS: BISACODYL 5 MG TAB PO SCH (08:16)
[2020-04-19] MEDS: EZETIMIBE 10 MG TAB (ZETIA) PO SCH (08:17)
[2020-04-19] MEDS: oxyCODONE 5MG TAB PO SCH ×3 (08:17→17:22)
--- NOTE | 2020-04-19 12:40 | HPEPDOC ---
Meter And Regulator Shop Supervisor Note DATE OF ADMISSION: 04-18-20 DATE OF SERVICE: 04-19-20 TIME OF ADMISSION: Please refer to physician's admission order. SOURCE OF ADMISSION INFORMATION: [facility] record and patient CHIEF COMPLAINT: right hip THR HISTORY OF PRESENT ILLNESS: 69F pmh DM, HTN, CKD, HLD, CAD with hx of [place] with worsening right hip OA that failed conservative management and was admitted to [facility] for elective right hip total hip replacement performed by Dr. Brown on 04-14-20. Post-operatively patient had NICK on CKD with post-op anemia and difficulty with pain management. 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 She was evaluated by therapy, noted to have impairments in mobility and ADls and deemed medically appropriate for discharge to ARU on 04-18-20. REVIEW OF SYSTEMS: The following is a completed review of systems and has been reviewed. Review of systems otherwise unremarkable. PAIN: Patient self reports no pain EYES: No recent vision changes EARS, NOSE, & THROAT: No throat pain, or dysphagia, or rhinorrhea. CARDIOVASCULAR: Denies chest pain or palpitations PULMONARY: Denies shortness of breath GASTROINTESTINAL: +constipation GENITOURINARY: denies dysuria MUSCULOSKELETAL: generalized weakness, s/p right hip replacement NEUROLOGICAL:denies paresthesias HEMATOLOGICAL: denies easy bruising SKIN: right hip incision PSYCHIATRIC: Unremarkable All other review of systems found to be negative. PAST MEDICAL HISTORY: as per HPI PAST SURGICAL HISTORY: cholecystectomy, appendectomy, coronary stent ALLERGIES: Please see below. MEDICATIONS: Please see below. FHx- DM and cardiac SOCIAL HISTORY: No etoh/illicit drugs, Current smokers DIET: low sodium, consistent carb PHYSICAL EXAMINATION: VITAL SIGNS: Please see below. GENERAL: Pleasant and cooperative. No acute distress. HEENT: PERRL. Extraocular movements intact. Clear conjunctiva. CARDIOVASCULAR: Regular rate and rhythm. No murmurs, rubs, or gallops LUNGS: Clear to auscultation bilaterally. No wheezes. No rhonchi ABDOMEN: Soft, nontender, nondistended. Positive bowel sounds. Normal active bowel sounds NEUROLOGICAL: Alert and oriented times three. Cranial nerves II through XII grossly intact. Sensation grossly intact EXTREMITIES: 5\5 strength bilateral upper extremities. 5\5 strength right lower ankle DF/PF (limited due to surgery) 5/5 strength in left lower extremity. SKIN: right hip incision LABORATORY DATA: Please see below. IMAGING:Imaging documentation personally reviewed by record FUNCTIONAL STATUS: Premorbid: Independent with all activities of daily life as well as mobility. On Admission: Min assist for functional transfers, ambulation, dressing toileting GOALS: Mod-I household distances, stairs, dressing, bathing, toileting ASSESSMENT:69-year-old F with past medical history of CKD and CAD with [place] who presents status post right hip THR PLAN: 1. Rehab- PT/OT advance mobility and ADLs, strengthen/stretch/maintain ROM all 4 limbs, hip precautions 2. Neuro- hx of CVA, c/u brillinta and statin -will need outpatient vascular f/u for left sided common carotid artery stenosis, will ask vascular to see patient inhouse to expedite possible i ntervention after ARU d/c 3. CArdia- hx of CAD with [place] on Brilinta and Co-reg -htn c/u amlodipine -HLD c/u statin and Zetia 4.Resp- monitor for infection, incentive spirometry, recent CXR- RUE lung density- f/u PMD 5. ortho- s/p right hip THR hip precations, f/u ortho 6. DM- hx of DM c/u ISS 7. DVT ppx- xarelto 8. Pain- tylenol, low dose oxycodone 9. GI ppx-protonix 10. Dispo- tbd POST ADMISSION PHYSICIAN EVALUATION: Medical and functional status: Description of medical status, medical assessment: As above. Rehabilitation diagnosis and current and prior cold morbid medical conditions as above. Risk of complications and plans to mitigate them as above. Description of functional status current status is as above. Prior status as above. Status compared to preadmission: There are no clinically significant differences between the patient's current status and the information described on the preadmission screening document. Treatment plan anticipated: Treatment plan is as described above. Required disciplines including physical therapy, occupational therapy, others as noted above. Intensity of services: 3 hours a day, 6 days a week. Special considerations: There are no specific special or safety considerations that would likely preclude immediate implementation of an intensive rehabilitation program or subsequently influence the plan of care. ATTESTATION: Considering all the information above, it is my best judgment that this patient requires intensive rehabilitation therapy as described above and an inpatient hospital environment due to the complexity of nursing, medical, and rehabilitation needs required by the patient. Furthermore, this patient can reasonably be expected to participate in an benefit from an inpatient [place] [facility] stay with an interdisciplinary team approach to the delivery of rehabilitation care under the direction and supervision of rehabilitation physician. PROGNOSIS: Excellent ESTIMATED LENGTH OF STAY: 10-14 days. PROJECTED DISCHARGE DESTINATION: Home with family support and any durable med ical equipment required to increase functional safety and mobility TIME SPENT COUNSELING AND COORDINATING INITIAL CARE: Greater than 70 minutes. Vital Signs Vital Sign - Last 24 Hours 04/18/20 04/18/20 04/18/20 04/18/20 18:50 20:00 21:09 22:19 Temp 98.5 Pulse 67 67 Resp 18 18 18 B/P (MAP) 127/60 (82) 127/60 Pulse Ox 97 O2 Delivery Room Air 04/18/20 04/19/20 04/19/20 04/19/20 22:49 00:00 04:17 08:16 Temp 98.6 Pulse 64 64 Resp 18 18 18 B/P (MAP) 142/65 (90) 142/65 Pulse Ox 95 100 O2 Delivery Room Air Room Air 04/19/20 04/19/20 08:17 09:00 Resp 18 18 Laboratory Data CBC/BMP Laboratory Tests 04/19/20 06:21 Labs 24H Laboratory Tests 2 04/18/20 20:30: Bedside Glucose (Misc Panel) 146H 04/19/20 06:07: Bedside Glucose (Misc Panel) 193H 04/19/20 06:21: Immature Granulocyte % (Auto) 0.6, Neutrophils (%) (Auto) 60.6, Lymphocytes (%) (Auto) 20.5L, Monocytes (%) (Auto) 13.7H, Eosinophils (%) (Auto) 3.7H, Basophils (%) (Auto) 0.9, Neutrophils # (Auto) 5.9, Lymphocytes # (Auto) 2.0, Monocytes # (Auto) 1.3H, Eosinophils # (Auto) 0.4, Basophils # (Auto) 0.1, Nucleated Red Blood Cells % (auto) 0.0, Anion Gap 7L, Glomerular Filtration Rate 26.8L, Calcium Level 8.7L, Total Bilirubin 0.7, Aspartate Amino Transf (AST/SGOT) 22, Alanine Aminotransferase (ALT/SGPT) 27, Alkaline Phosphatase 253H, Total Protein 6.6, Albumin 2.5L, Albumin/Globulin Ratio 0.6L 04/19/20 11:13: Bedside Glucose (Misc Panel) 165H FSBS Laboratory Tests Test 04/18/20 20:30 04/19/20 06:07 04/19/20 11:13 Range/Units Bedside Glucose (Misc Panel) 146 193 165 80-115 MG/DL Home Medications Scheduled Amlodipine Besylate (Amlodipine Besylate) 5 Mg Tablet, 10 MG PO DAILY, (Reported) Atorvastatin Calcium (Atorvastatin Calcium) 40 Mg Tablet, 40 MG PO DAILY, (Reported) Canagliflozin (Invokana) 100 Mg Tablet, 300 MG PO DAILY, (Reported) Carvedilol (Carvedilol) 25 Mg Tablet, 25 MG PO BID, (Reported) Ezetimibe (Ezetimibe) 10 Mg Tablet, 10 MG PO DAILY, (Reported) Losartan Potassium (Losartan Potassium) 50 Mg Tablet, 50 MG PO DAILY, (Reported) Rivaroxaban (Xarelto) 10 Mg Tablet, 10 MG PO DAILY Ticagrelor (Brilinta) 60 Mg Tablet, 60 MG PO BID, (Reported) Scheduled PRN Oxycodone HCl/Acetaminophen (Percocet 5-325 mg Tablet) 1 Each Tablet, 1-2 TAB PO Q4H PRN for PAIN Allergies Coded Allergies: Penicillins (Verified Allergy, Intermediate, rash, 04/14/20) A-FIB/CHADSVASC A-FIB History Current/History of A-Fib/PAF?: No Current PO Anticoag Therapy: No LUCILA JACOBSON MD Apr 19, 2020 12:40
[2020-04-19 14:00] VITALS: BP 143/69
[2020-04-19] MEDS ORDERED: FLEET ENEMA PR ONE (14:00)
[2020-04-19] MEDS: TICAGRELOR 90 MG TABLET (BRILINTA) PO SCH ×2 (14:17→20:52)
[2020-04-19] MEDS: RIVAROXABAN 10 MG TAB (XARELTO) PO SCH (17:21)
--- NOTE | 2020-04-19 18:52 | IPNPDOC ---
Date Seen The patient was seen on 04/19/20. Progress Note SUBJECTIVE: Patient comfortable in chair, worked with physical therapy, no new complaints at this time. Pain is well-controlled. PHYSICAL EXAMINATION: VITAL SIGNS: Please see below. GENERAL: No distress HEENT: Normocephalic, atraumatic, moist mucous membranes NECK: Supple CARDIOVASCULAR EXAMINATION: S1, S2, no murmurs RESPIRATORY EXAMINATION: Clear to auscultation, no wheezing ABDOMINAL EXAMINATION: Soft, nontender, nondistended, positive bowel sounds EXTREMITIES: No edema SKIN: No rash NEUROLOGICAL EXAMINATION: Alert and oriented 3, no focal deficits PSYCHIATRIC EXAMINATION: Calm and cooperative LABORATORY DATA, IMAGING STUDIES, MICROBIOLOGY: Please see below. ASSESSMENT AND PLAN: 69-year-old female with past medical history of diabetes mellitus, hypertension, coronary artery disease and chronic kidney disease is admitted to acute rehabilitation unit after undergoing right total hip arthroplasty. PROBLEMS: 1. Chronic kidney disease Had acute kidney injury postop, now recovering, will monitor renal function. Having adequate urine output, will hold off on extensive workup for acute kidney injury at this time unless needed. 2. Coronary artery disease. Status post stent placement, continue Brilinta, atorvastatin, Zetia and beta canelo. 3. Diabetes mellitus. Sliding scale insulin with meals and at bedtime 4. Hypertension On Norvasc and beta canelo 5. Osteoarthritis. Status post right total hip arthroplasty, rehabilitation as per primary. DVT prophylaxis: Pradaxa GI prophylaxis: PPI VS, I&O, 24H, Fishbone Vital Signs/I&O Vital Signs Date Time Temp Pulse Resp B/P (MAP) Pulse Ox O2 Delivery O2 Flow Rate FiO2 04/19/20 18:00 18 04/19/20 14:00 98.5 66 143/69 (93) 98 Room Air I&O- Last 24 Hours up to 6 AM 04/19/20 06:00 Intake Total 460 ml Balance 460 ml Laboratory Data 24H LABS Laboratory Tests 2 04/18/20 20:30: Bedside Glucose (Misc Panel) 146H 04/19/20 06:07: Bedside Glucose (Misc Panel) 193H 04/19/20 06:21: Immature Granulocyte % (Auto) 0.6, Neutrophils (%) (Auto) 60.6, Lymphocytes (%) (Auto) 20.5L, Monocytes (%) (Auto) 13.7H, Eosinophils (%) (Auto) 3.7H, Basophils (%) (Auto) 0.9, Neutrophils # (Auto) 5.9, Lymphocytes # (Auto) 2.0, Monocytes # (Auto) 1.3H, Eosinophils # (Auto) 0.4, Basophils # (Auto) 0.1, Nucleated Red Blood Cells % (auto) 0.0, Anion Gap 7L, Glomerular Filtration Rate 26.8L, Calcium Level 8.7L, Total Bilirubin 0.7, Aspartate Amino Transf (AST/SGOT) 22, Alanine Aminotransferase (ALT/SGPT) 27, Alkaline Phosphatase 253H, Total Protein 6.6, Albumin 2.5L, Albumin/Globulin Ratio 0.6L 04/19/20 11:13: Bedside Glucose (Misc Panel) 165H 04/19/20 16:23: Bedside Glucose (Misc Panel) 176H CBC/BMP Laboratory Tests 04/19/20 06:21 MARCELA MARTIN MD Apr 19, 2020 18:52
[2020-04-19 20:00] VITALS: BP 119/56
[2020-04-19] MEDS: SENNA 8.6 MG TAB (SENOKOT) PO SCH (20:51)
[2020-04-19] MEDS ORDERED: BRILINTA 60 MG PO SCH (21:00)
[2020-04-20 05:23] VITALS: BP 157/70
--- NOTE | 2020-04-20 07:33 | IPNPDOC ---
PM&R Progress Note DATE OF SERVICE: Apr 20, 2020 Technical Instructor Course Developer Progress Note Subjective: Patient reporting she feels tired today and is hoping to be able to go home soon. Denies any new pain and states her pain is well controlled. REVIEW OF SYSTEMS: The following is a completed review of systems and has been reviewed. Review of systems otherwise unremarkable. PAIN: Patient self reports no pain EYES: No recent vision changes EARS, NOSE, & THROAT: No throat pain, or dysphagia, or rhinorrhea. CARDIOVASCULAR: Denies chest pain or palpitations PULMONARY: Denies shortness of breath GASTROINTESTINAL: +constipation (improving) GENITOURINARY: denies dysuria MUSCULOSKELETAL: generalized weakness, s/p right hip replacement NEUROLOGICAL:denies paresthesias HEMATOLOGICAL: denies easy bruising SKIN: right hip incision PSYCHIATRIC: Unremarkable All other review of systems found to be negative. PHYSICAL EXAMINATION: VITAL SIGNS: Please see below. GENERAL: Pleasant and cooperative. No acute distress. HEENT: PERRL. Extraocular movements intact. Clear conjunctiva. CARDIOVASCULAR: Regular rate and rhythm. No murmurs, rubs, or gallops LUNGS: Clear to auscultation bilaterally. No wheezes. No rhonchi ABDOMEN: Soft, nontender, nondistended. Positive bowel sounds. Normal active bowel sounds NEUROLOGICAL: Alert and oriented times three. Cranial nerves II through XII grossly intact. Sensation grossly intact EXTREMITIES: 5\5 strength bilateral upper extremities. 5\5 strength right lower ankle DF/PF (limited due to surgery) 5/5 strength in left lower extremity. SKIN: right hip incision ASSESSMENT:69-year-old F with past medical history of CKD and CAD with [place] who presents status post right hip THR PLAN: 1. Rehab- PT/OT advance mobility and ADLs, strengthen/stretch/maintain ROM all 4 limbs, hip precautions 2. Neuro- hx of CVA, c/u brillinta and statin -will need outpatient vascular f/u for left sided common carotid artery stenosis, will ask vascular to see patient inhouse to expedite possible intervention after ARU d/c 3. CArdia- hx of CAD with [place] on Brilinta and Co-reg -htn c/u amlodipine -HLD c/u statin and Zetia 4.Resp- monitor for infection, incentive spirometry, recent CXR- RUE lung density- f/u PMD 5. ortho- s/p right hip THR hip precations, f/u ortho 6. DM- hx of DM c/u ISS 7. DVT ppx- xarelto 8. Pain- tylenol, low dose oxycodone 9. GI ppx-protonix 10. Dispo- tbd Allergies Coded Allergies: Penicillins (Verified Allergy, Intermediate, rash, 04/14/20) Vital Signs Vital Signs Date Time Temp Pulse Resp B/P (MAP) Pulse Ox O2 Delivery O2 Flow Rate FiO2 04/20/20 05:23 97.9 63 19 157/70 (99) 97 Room Air Laboratory Data Labs 24H Laboratory Tests 2 04/19/20 11:13: Bedside Glucose (Misc Panel) 165H 04/19/20 16:23: Bedside Glucose (Misc Panel) 176H 04/19/20 19:51: Bedside Glucose (Misc Panel) 145H 04/20/20 04:56: Bedside Glucose (Misc Panel) 153H Current Medications Current Medications Current Medications Medications (Trade) Dose Ordered Sig/Juju Route PRN Reason Start Time Stop Time Status Last Admin Dose Admin Acetaminophen (Tylenol Tab) 1,000 mg TID PO 04/18/20 21:00 04/19/20 20:53 Amlodipine Besylate (Norvasc) 10 mg DAILY PO 04/19/20 09:00 04/19/20 08:17 Atorvastatin Calcium (Lipitor) 40 mg DAILY PO 04/19/20 09:00 04/19/20 08:16 Bisacodyl (Dulcolax Suppository) 10 mg DAILYPRN PRN [place] CONSTIPATION 04/18/20 18:30 Bisacodyl (Dulcolax Tab) 5 mg DAILY PO 04/19/20 09:00 04/19/20 08:16 Carvedilol (COReg) 25 mg BID PO 04/18/20 21:00 04/19/20 20:52 Dextrose (Dextrose 50%) 25 ml ASDIRECTED PRN IV SEE LABEL COMMENTS 04/18/20 18:30 Docusate Sodium (Colace) 100 mg BID PO 04/18/20 21:00 04/19/20 20:51 EZETIMIBE (Zetia) 10 mg DAILY PO 04/19/20 09:00 04/19/20 08:17 Glucagon (Glucagon) 1 mg ASDIRECTED PRN SC SEE LABEL COMMENTS 04/18/20 18:30 Glucose (Glucose) 16 GM ASDIRECTED PRN PO SEE LABEL COMMENTS 04/18/20 18:30 Insulin Human Lispro (HumaLOG INSULIN) SEE PROTOCOL TABLE AC SC 04/19/20 07:30 04/19/20 17:23 Insulin Human Lispro (HumaLOG INSULIN) SEE PROTOCOL TABLE QHS SC 04/18/20 21:00 Miscellaneous (Unresolved Patient Own Med Order) SEE LABEL COMMENTS DAILY XX 04/19/20 09:00 Ondansetron HCl (Zofran Odt) 4 mg Q6HP PRN PO NAUSEA OR VOMITING 04/18/20 18:30 04/19/20 10:28 Oxycodone HCl (Roxicodone, Oxyir) 2.5 mg 0800,1200,1600 PO 04/19/20 08:00 04/19/20 17:22 Oxycodone HCl (Roxicodone, Oxyir) 2.5 mg ASDIRECTED PO 04/18/20 18:30 04/19/20 08:10 DC Oxycodone HCl (Roxicodone, Oxyir) 2.5 mg QHS PRN PO PAIN >6 04/18/20 18:30 04/18/20 22:19 Pantoprazole Sodium (Protonix) 40 mg DAILY PO 04/19/20 09:00 04/19/20 08:16 Patient Own Medication (Patient'S Own Med) 60MG = 1 TABLET BID PO 04/19/20 21:00 UNV Rivaroxaban (Xarelto) 10 mg DAILY@1800 PO 04/19/20 18:00 04/19/20 17:21 Senna (Senokot) 1 tab QHS PO 04/18/20 21:00 04/19/20 20:51 Sodium Biphosphate/ Sodium Phosphate (Fleet Enema) 1 ea DAILYPRN PRN [place] CONSTIPATION 04/18/20 18:30 Ticagrelor (Brilinta) 45 mg BID PO 04/19/20 09:00 04/19/20 20:52 Ticagrelor (Brilinta) 60 mg BID PO 04/18/20 21:00 04/19/20 10:57 DC 04/18/20 21:11 LUCILA JACOBSON MD Apr 20, 2020 07:33
[2020-04-20] MEDS: ATORVASTATIN 20 MG TAB PO SCH (07:43)
[2020-04-20] MEDS: CARVedilol 12.5 MG TAB PO SCH ×2 (07:43→20:32)
[2020-04-20] MEDS: PANTOPRAZOLE 40MG TAB (PROTONIX) PO SCH (07:43)
[2020-04-20] MEDS: HumaLOG INSULIN (NovoLOG) PER UNIT SC SCH ×4 (07:43→20:33)
[2020-04-20] MEDS: EZETIMIBE 10 MG TAB (ZETIA) PO SCH (07:43)
[2020-04-20] MEDS: oxyCODONE 5MG TAB PO SCH ×3 (07:44→17:22)
[2020-04-20] MEDS: DOCUSATE SODIUM 100MG CAPSULE PO SCH ×2 (07:44→20:32)
[2020-04-20] MEDS: BISACODYL 5 MG TAB PO SCH (07:45)
[2020-04-20] MEDS: ACETAMINOPHEN 500 MG TAB PO SCH ×3 (07:45→20:33)
[2020-04-20] MEDS: TICAGRELOR 90 MG TABLET (BRILINTA) PO SCH ×2 (09:33→20:33)
[2020-04-20 14:00] VITALS: BP 138/62
[2020-04-20] MEDS: RIVAROXABAN 10 MG TAB (XARELTO) PO SCH (17:21)
[2020-04-20 20:00] VITALS: BP 129/68
[2020-04-20] MEDS: SENNA 8.6 MG TAB (SENOKOT) PO SCH (20:32)
[2020-04-21 05:32] VITALS: BP 130/59
[2020-04-21] MEDS ORDERED: XARE10TA PO (06:27)
[2020-04-21 07:13] LABS: BASO # 0.1 10^3/uL (0.0-0.2); EOS # 0.3 10^3/uL (0.0-0.5); HEMATOCRIT 30.5 % (36.0-47.0); HEMOGLOBIN 9.5 g/dl (12.0-15.5); LYMPH # 2.3 10^3/uL (1.5-5.0); MEAN CORPUSCULAR HEMOGLOBIN 29.1 pg (27.0-33.0); MEAN CORPUSCULAR HGB CONC 31.1 g/dl (32.0-36.5); MEAN CORPUSCULAR VOLUME 93.3 fl (80.0-96.0); MONO % 12.6 % (2.0-8.0); NEUTROPHILS # 4.4 10^3/uL (1.5-8.5); NEUTROPHILS % 53.3 % (36.0-66.0); PLATELET COUNT, AUTOMATED 370 10^3/uL (150-450); RED BLOOD COUNT 3.27 10^6/uL (4.00-5.40); WHITE BLOOD COUNT 8.3 10^3/uL (4.0-10.0)
[2020-04-21 07:33] LABS: CALCIUM LEVEL 8.4 MG/DL (8.8-10.2); CREATININE FOR GFR 1.8 MG/DL (0.55-1.30); GLOMERULAR FILTRATION RATE 29.9 (>45); POTASSIUM SERUM 4.5 MEQ/L (3.5-5.1)
[2020-04-21] MEDS: EZETIMIBE 10 MG TAB (ZETIA) PO SCH (08:35)
[2020-04-21] MEDS: HumaLOG INSULIN (NovoLOG) PER UNIT SC SCH ×4 (08:35→20:35)
[2020-04-21] MEDS: TICAGRELOR 90 MG TABLET (BRILINTA) PO SCH ×2 (08:35→20:34)
[2020-04-21] MEDS: CARVedilol 12.5 MG TAB PO SCH ×2 (08:35→20:33)
[2020-04-21] MEDS: PANTOPRAZOLE 40MG TAB (PROTONIX) PO SCH (08:35)
[2020-04-21] MEDS: BISACODYL 5 MG TAB PO SCH (08:36)
[2020-04-21] MEDS: ACETAMINOPHEN 500 MG TAB PO SCH ×3 (08:36→20:35)
[2020-04-21] MEDS: DOCUSATE SODIUM 100MG CAPSULE PO SCH ×2 (08:36→20:33)
[2020-04-21] MEDS: ATORVASTATIN 20 MG TAB PO SCH (08:36)
[2020-04-21] MEDS: oxyCODONE 5MG TAB PO SCH ×3 (08:37→16:35)
--- NOTE | 2020-04-21 12:13 | IPNPDOC ---
PM&R Progress Note DATE OF SERVICE: Apr 21, 2020 Graphite Disk Assembler Progress Note Subjective: Patient seen in the gym with no complaints. REVIEW OF SYSTEMS: The following is a completed review of systems and has been reviewed. Review of systems otherwise unremarkable. PAIN: Patient self reports no pain EYES: No recent vision changes EARS, NOSE, & THROAT: No throat pain, or dysphagia, or rhinorrhea. CARDIOVASCULAR: Denies chest pain or palpitations PULMONARY: Denies shortness of breath GASTROINTESTINAL: +constipation (improving) GENITOURINARY: denies dysuria MUSCULOSKELETAL: generalized weakness, s/p right hip replacement NEUROLOGICAL:denies paresthesias HEMATOLOGICAL: denies easy bruising SKIN: right hip incision PSYCHIATRIC: Unremarkable All other review of systems found to be negative. PHYSICAL EXAMINATION: VITAL SIGNS: Please see below. GENERAL: Pleasant and cooperative. No acute distress. HEENT: PERRL. Extraocular movements intact. Clear conjunctiva. CARDIOVASCULAR: Regular rate and rhythm. No murmurs, rubs, or gallops LUNGS: Clear to auscultation bilaterally. No wheezes. No rhonchi ABDOMEN: Soft, nontender, nondistended. Positive bowel sounds. Normal active bowel sounds NEUROLOGICAL: Alert and oriented times three. Cranial nerves II through XII grossly intact. Sensation grossly intact EXTREMITIES: 5\5 strength bilateral upper extremities. 5\5 strength right lower ankle DF/PF (limited due to surgery) 5/5 strength in left lower extremity. SKIN: right hip incision ASSESSMENT:69-year-old F with past medical history of CKD and CAD with [place] who presents status post right hip THR PLAN: 1. Rehab- PT/OT advance mobility and ADLs, strengthen/stretch/maintain ROM all 4 limbs, hip precautions 2. Neuro- hx of CVA, c/u brillinta and statin -will need outpatient vascular f/u for left sided common carotid artery stenosis, will ask vascular to see patient inhouse to expedite possible intervention after ARU d/c 3. CArdia- hx of CAD with MN on Brilinta and Co-reg -htn c/u amlodipine -HLD c/u statin and Zetia 4.Resp- monitor for infection, incentive spirometry, recent CXR- RUE lung density- f/u PMD 5. ortho- s/p right hip THR hip precations, f/u ortho 6. DM- hx of DM c/u ISS 7. DVT ppx- xarelto 8. Pain- tylenol, low dose oxycodone 9. GI ppx-protonix 10. Dispo- tbd Allergies Coded Allergies: Penicillins (Verified Allergy, Intermediate, rash, 04/14/20) Vital Signs Vital Signs Date Time Temp Pulse Resp B/P (MAP) Pulse Ox O2 Delivery O2 Flow Rate FiO2 04/21/20 12:01 18 04/21/20 08:36 64 130/59 04/21/20 05:32 97.7 97 Room Air Laboratory Data CBC/BMP Laboratory Tests 04/21/20 06:44 Labs 24H Laboratory Tests 2 04/20/20 16:35: Bedside Glucose (Misc Panel) 195H 04/20/20 19:33: Bedside Glucose (Misc Panel) 193H 04/21/20 04:50: Bedside Glucose (Misc Panel) 133H 04/21/20 06:44: Immature Granulocyte % (Auto) 1.1, Neutrophils (%) (Auto) 53.3, Lymphocytes (%) (Auto) 28.0, Monocytes (%) (Auto) 12.6H, Eosinophils (%) (Auto) 4.0H, Basophils (%) (Auto) 1.0, Neutrophils # (Auto) 4.4, Lymphocytes # (Auto) 2.3, Monocytes # (Auto) 1.0H, Eosinophils # (Auto) 0.3, Basophils # (Auto) 0.1, Nucleated Red Blood Cells % (auto) 0.0, Anion Gap 7L, Glomerular Filtration Rate 29.9L, Calcium Level 8.4L Current Medications Current Medications Current Medications Medications (Trade) Dose Ordered Sig/Juju Route PRN Reason Start Time Stop Time Status Last Admin Dose Admin Acetaminophen (Tylenol Tab) 1,000 mg TID PO 04/18/20 21:00 04/21/20 08:36 Amlodipine Besylate (Norvasc) 10 mg DAILY PO 04/19/20 09:00 04/21/20 08:36 Atorvastatin Calcium (Lipitor) 40 mg DAILY PO 04/19/20 09:00 04/21/20 08:36 Bisacodyl (Dulcolax Suppository) 10 mg DAILYPRN PRN [place] CONSTIPATION 04/18/20 18:30 Bisacodyl (Dulcolax Tab) 5 mg DAILY PO 04/19/20 09:00 04/21/20 08:36 Carvedilol (COReg) 25 mg BID PO 04/18/20 21:00 04/21/20 08:35 Dextrose (Dextrose 50%) 25 ml ASDIRECTED PRN IV SEE LABEL COMMENTS 04/18/20 18:30 Docusate Sodium (Colace) 100 mg BID PO 04/18/20 21:00 04/21/20 08:36 EZETIMIBE (Zetia) 10 mg DAILY PO 04/19/20 09:00 04/21/20 08:35 Glucagon (Glucagon) 1 mg ASDIRECTED PRN SC SEE LABEL COMMENTS 04/18/20 18:30 Glucose (Glucose) 16 GM ASDIRECTED PRN PO SEE LABEL COMMENTS 04/18/20 18:30 Insulin Human Lispro (HumaLOG INSULIN) SEE PROTOCOL TABLE AC SC 04/19/20 07:30 04/21/20 08:35 Insulin Human Lispro (HumaLOG INSULIN) SEE PROTOCOL TABLE QHS SC 04/18/20 21:00 Miscellaneous (Unresolved Patient Own Med Order) SEE LABEL COMMENTS DAILY XX 04/19/20 09:00 Ondansetron HCl (Zofran Odt) 4 mg Q6HP PRN PO NAUSEA OR VOMITING 04/18/20 18:30 04/19/20 10:28 Oxycodone HCl (Roxicodone, Oxyir) 2.5 mg 0800,1200,1600 PO 04/19/20 08:00 04/21/20 12:01 Oxycodone HCl (Roxicodone, Oxyir) 2.5 mg ASDIRECTED PO 04/18/20 18:30 04/19/20 08:10 DC Oxycodone HCl (Roxicodone, Oxyir) 2.5 mg QHS PRN PO PAIN >6 04/18/20 18:30 04/18/20 22:19 Pantoprazole Sodium (Protonix) 40 mg DAILY PO 04/19/20 09:00 04/21/20 08:35 Patient Own Medication (Patient'S Own Med) 60MG = 1 TABLET BID PO 04/19/20 21:00 UNV Rivaroxaban (Xarelto) 10 mg DAILY@1800 PO 04/19/20 18:00 04/20/20 17:21 Senna (Senokot) 1 tab QHS PO 04/18/20 21:00 04/20/20 20:32 Sodium Biphosphate/ Sodium Phosphate (Fleet Enema) 1 ea DAILYPRN PRN [place] CONSTIPATION 04/18/20 18:30 Ticagrelor (Brilinta) 45 mg BID PO 04/19/20 09:00 04/21/20 08:35 Ticagrelor (Brilinta) 60 mg BID PO 04/18/20 21:00 04/19/20 10:57 DC 04/18/20 21:11 LUCILA JACOBSON MD Apr 21, 2020 12:13
[2020-04-21 14:00] VITALS: BP 126/57
[2020-04-21] MEDS: RIVAROXABAN 10 MG TAB (XARELTO) PO SCH (17:18)
[2020-04-21 19:55] VITALS: BP 156/72
[2020-04-21] MEDS: SENNA 8.6 MG TAB (SENOKOT) PO SCH (20:35)
[2020-04-22 04:48] VITALS: BP 156/74
[2020-04-22] MEDS: TICAGRELOR 90 MG TABLET (BRILINTA) PO SCH ×2 (08:22→20:12)
[2020-04-22] MEDS: HumaLOG INSULIN (NovoLOG) PER UNIT SC SCH ×4 (08:22→20:14)
[2020-04-22] MEDS: EZETIMIBE 10 MG TAB (ZETIA) PO SCH (08:24)
[2020-04-22] MEDS: ACETAMINOPHEN 500 MG TAB PO SCH ×3 (08:24→20:14)
[2020-04-22] MEDS: DOCUSATE SODIUM 100MG CAPSULE PO SCH ×2 (08:24→20:11)
[2020-04-22] MEDS: BISACODYL 5 MG TAB PO SCH (08:25)
[2020-04-22] MEDS: PANTOPRAZOLE 40MG TAB (PROTONIX) PO SCH (08:25)
[2020-04-22] MEDS: oxyCODONE 5MG TAB PO SCH ×3 (08:25→17:17)
[2020-04-22] MEDS: ATORVASTATIN 20 MG TAB PO SCH (08:25)
[2020-04-22] MEDS: CARVedilol 12.5 MG TAB PO SCH ×2 (08:29→20:14)
[2020-04-22 14:00] VITALS: BP 138/64
[2020-04-22] MEDS: RIVAROXABAN 10 MG TAB (XARELTO) PO SCH (17:17)
[2020-04-22] MEDS: SENNA 8.6 MG TAB (SENOKOT) PO SCH (20:11)
[2020-04-22 20:18] VITALS: BP 144/67
[2020-04-23 05:32] VITALS: BP 158/64
[2020-04-23] MEDS: HumaLOG INSULIN (NovoLOG) PER UNIT SC SCH ×4 (07:53→21:00)
[2020-04-23] MEDS: TICAGRELOR 90 MG TABLET (BRILINTA) PO SCH ×2 (07:53→21:16)
[2020-04-23] MEDS: PANTOPRAZOLE 40MG TAB (PROTONIX) PO SCH (07:53)
[2020-04-23] MEDS: ACETAMINOPHEN 500 MG TAB PO SCH ×3 (07:54→21:16)
[2020-04-23] MEDS: oxyCODONE 5MG TAB PO SCH ×3 (07:54→17:34)
[2020-04-23] MEDS: EZETIMIBE 10 MG TAB (ZETIA) PO SCH (07:55)
[2020-04-23] MEDS: ATORVASTATIN 20 MG TAB PO SCH (07:55)
[2020-04-23] MEDS: CARVedilol 12.5 MG TAB PO SCH ×2 (07:55→21:16)
[2020-04-23] MEDS: BISACODYL 5 MG TAB PO SCH (07:56)
[2020-04-23] MEDS: DOCUSATE SODIUM 100MG CAPSULE PO SCH ×2 (07:56→21:00)
[2020-04-23 14:00] VITALS: BP 135/64
[2020-04-23] MEDS: RIVAROXABAN 10 MG TAB (XARELTO) PO SCH (17:34)
--- NOTE | 2020-04-23 19:32 | IPNPDOC ---
Date Seen The patient was seen on 04/23/20. Progress Note SUBJECTIVE: Patient comfortable in bed, no new complaints, working with physical therapy, wishing to go home. PHYSICAL EXAMINATION: VITAL SIGNS: Please see below. GENERAL: No distress HEENT: Normocephalic, atraumatic, moist mucous membranes NECK: Supple CARDIOVASCULAR EXAMINATION: S1, S2, no murmurs RESPIRATORY EXAMINATION: Clear to auscultation, no wheezing ABDOMINAL EXAMINATION: Soft, nontender, nondistended, positive bowel sounds EXTREMITIES: No edema SKIN: No rash NEUROLOGICAL EXAMINATION: Alert and oriented 3, no focal deficits PSYCHIATRIC EXAMINATION: Calm and cooperative LABORATORY DATA, IMAGING STUDIES, MICROBIOLOGY: Please see below. ASSESSMENT AND PLAN: 69-year-old female with past medical history of diabetes mellitus, hypertension, coronary artery disease and chronic kidney disease is admitted to acute rehabilitation unit after undergoing right total hip arthroplasty. PROBLEMS: 1. Chronic kidney disease Had acute kidney injury postop, now recovering, will monitor renal function.. Repeat labs tomorrow morning. Nonoliguric 2. Coronary artery disease. Status post stent placement, continue Brilinta, atorvastatin, Zetia and beta canelo. 3. Diabetes mellitus. Sliding scale insulin with meals and at bedtime 4. Hypertension On Norvasc and beta canelo 5. Osteoarthritis. Status post right total hip arthroplasty, rehabilitation as per primary. DVT prophylaxis: Pradaxa GI prophylaxis: PPI VS, I&O, 24H, Fishbone Vital Signs/I&O Vital Signs Date Time Temp Pulse Resp B/P (MAP) Pulse Ox O2 Delivery O2 Flow Rate FiO2 04/23/20 18:10 18 04/23/20 14:00 97.7 55 135/64 (87) 100 Room Air I&O- Last 24 Hours up to 6 AM 04/23/20 06:00 Intake Total 1040 ml Balance 1040 ml Laboratory Data 24H LABS Laboratory Tests 2 04/22/20 19:42: Bedside Glucose (Misc Panel) 141H 04/23/20 05:26: Bedside Glucose (Misc Panel) 140H 04/23/20 11:35: Bedside Glucose (Misc Panel) 187H 04/23/20 16:31: Bedside Glucose (Misc Panel) 189H MARCELA MARTIN MD Apr 23, 2020 19:31
[2020-04-23 21:00] VITALS: BP 127/58
[2020-04-23] MEDS: SENNA 8.6 MG TAB (SENOKOT) PO SCH (21:00)
[2020-04-24] MEDS: PANTOPRAZOLE 40MG TAB (PROTONIX) PO SCH (07:58)
[2020-04-24] MEDS: CARVedilol 12.5 MG TAB PO SCH ×2 (08:01→20:13)
[2020-04-24] MEDS: TICAGRELOR 90 MG TABLET (BRILINTA) PO SCH ×2 (08:02→20:13)
[2020-04-24] MEDS: oxyCODONE 5MG TAB PO SCH ×3 (08:02→16:46)
[2020-04-24] MEDS: ATORVASTATIN 20 MG TAB PO SCH (08:03)
[2020-04-24] MEDS: BISACODYL 5 MG TAB PO SCH (08:03)
[2020-04-24] MEDS: DOCUSATE SODIUM 100MG CAPSULE PO SCH ×2 (08:03→20:13)
[2020-04-24] MEDS: EZETIMIBE 10 MG TAB (ZETIA) PO SCH (08:03)
[2020-04-24] MEDS: ACETAMINOPHEN 500 MG TAB PO SCH ×3 (08:03→20:12)
[2020-04-24] MEDS: HumaLOG INSULIN (NovoLOG) PER UNIT SC SCH ×4 (08:04→20:14)
[2020-04-24 10:20] LABS: BASO # 0.1 10^3/uL (0.0-0.2); BASO % 0.7 % (0.0-1.0); EOS # 0.3 10^3/uL (0.0-0.5); EOS % 3.2 % (0.0-3.0); HEMATOCRIT 29.9 % (36.0-47.0); HEMOGLOBIN 9.2 g/dl (12.0-15.5); LYMPH # 2.5 10^3/uL (1.5-5.0); LYMPH % 23.1 % (24.0-44.0); MEAN CORPUSCULAR HEMOGLOBIN 29.4 pg (27.0-33.0); MEAN CORPUSCULAR HGB CONC 30.8 g/dl (32.0-36.5); MEAN CORPUSCULAR VOLUME 95.5 fl (80.0-96.0); MONO # 0.8 10^3/uL (0.0-0.8); MONO % 7.3 % (2.0-8.0); NEUTROPHILS # 6.9 10^3/uL (1.5-8.5); NEUTROPHILS % 64.8 % (36.0-66.0); PLATELET COUNT, AUTOMATED 440 10^3/uL (150-450); RED BLOOD COUNT 3.13 10^6/uL (4.00-5.40); WHITE BLOOD COUNT 10.6 10^3/uL (4.0-10.0)
[2020-04-24 10:41] LABS: CALCIUM LEVEL 8.9 MG/DL (8.8-10.2); CREATININE FOR GFR 1.7 MG/DL (0.55-1.30); GLOMERULAR FILTRATION RATE 31.9 (>45); POTASSIUM SERUM 4.5 MEQ/L (3.5-5.1)
--- NOTE | 2020-04-24 11:47 | IPNPDOC ---
PM&R Progress Note DATE OF SERVICE: Apr 24, 2020 Clerical Car Checker Progress Note Subjective: Patient requesting going home in the enxt few days and was pleased to hear that Friday would likely work if she continued to progress as she was. She says the middle of her low back is sore. REVIEW OF SYSTEMS: The following is a completed review of systems and has been reviewed. Review of systems otherwise unremarkable. PAIN: Patient self reports +low back pain EYES: No recent vision changes EARS, NOSE, & THROAT: No throat pain, or dysphagia, or rhinorrhea. CARDIOVASCULAR: Denies chest pain or palpitations PULMONARY: Denies shortness of breath GASTROINTESTINAL: +constipation (improving) GENITOURINARY: denies dysuria MUSCULOSKELETAL: generalized weakness, s/p right hip replacement NEUROLOGICAL:denies paresthesias HEMATOLOGICAL: denies easy bruising SKIN: right hip incision PSYCHIATRIC: Unremarkable All other review of systems found to be negative. PHYSICAL EXAMINATION: VITAL SIGNS: Please see below. GENERAL: Pleasant and cooperative. No acute distress. HEENT: PERRL. Extraocular movements intact. Clear conjunctiva. CARDIOVASCULAR: Regular rate and rhythm. No murmurs, rubs, or gallops LUNGS: Clear to auscultation bilaterally. No wheezes. No rhonchi ABDOMEN: Soft, nontender, nondistended. Positive bowel sounds. Normal active bowel sounds NEUROLOGICAL: Alert and oriented times three. Cranial nerves II through XII casimiro ssly intact. Sensation grossly intact EXTREMITIES: 5\5 strength bilateral upper extremities. 5\5 strength right lower ankle DF/PF (limited due to surgery) 5/5 strength in left lower extremity. SKIN: right hip incision ASSESSMENT:69-year-old F with past medical history of CKD and CAD with [place] who presents status post right hip THR PLAN: 1. Rehab- PT/OT advance mobility and ADLs, strengthen/stretch/maintain ROM all 4 limbs, hip precautions 2. Neuro- hx of CVA, c/u brillinta and statin -will need outpatient vascular f/u for left sided common carotid artery stenosis, will ask vascular to see patient inhouse to expedite possible intervention after ARU d/c 3. CArdia- hx of CAD with [place] on Brilinta and Co-reg -htn c/u amlodipine -HLD c/u statin and Zetia 4.Resp- monitor for infection, incentive spirometry, recent CXR- RUE lung density- f/u PMD 5. ortho- s/p right hip THR hip precations, f/u ortho 6. DM- hx of DM c/u ISS 7. DVT ppx- xarelto 8. Pain- tylenol, low dose oxycodone 9. GI ppx-protonix 10. Dispo- 04-26-20 to home, progressing towards goals Allergies Coded Allergies: Penicillins (Verified Allergy, Intermediate, rash, 04/14/20) Vital Signs Vital Signs Date Time Temp Pulse Resp B/P (MAP) Pulse Ox O2 Delivery O2 Flow Rate FiO2 04/24/20 08:32 18 Room Air 04/24/20 08:01 61 186/77 04/24/20 06:00 97.9 96 Laboratory Data CBC/BMP Laboratory Tests 04/24/20 09:51 Labs 24H Laboratory Tests 2 04/23/20 16:31: Bedside Glucose (Misc Panel) 189H 04/23/20 20:40: Bedside Glucose (Misc Panel) 154H 04/23/20 20:43: Bedside Glucose (Misc Panel) 149H 04/24/20 04:44: Bedside Glucose (Misc Panel) 153H 04/24/20 09:51: Immature Granulocyte % (Auto) 0.9, Neutrophils (%) (Auto) 64.8, Lymphocytes (%) (Auto) 23.1L, Monocytes (%) (Auto) 7.3, Eosinophils (%) (Auto) 3.2H, Basophils (%) (Auto) 0.7, Neutrophils # (Auto) 6.9, Lymphocytes # (Auto) 2.5, Monocytes # (Auto) 0.8, Eosinophils # (Auto) 0.3, Basophils # (Auto) 0.1, Nucleated Red Bloo d Cells % (auto) 0.0, Anion Gap 8, Glomerular Filtration Rate 31.9L, Calcium Level 8.9 04/24/20 11:33: Bedside Glucose (Misc Panel) 122H Current Medications Current Medications Current Medications Medications (Trade) Dose Ordered Sig/Juju Route PRN Reason Start Time Stop Time Status Last Admin Dose Admin Acetaminophen (Tylenol Tab) 1,000 mg TID PO 04/18/20 21:00 04/24/20 08:03 Amlodipine Besylate (Norvasc) 10 mg DAILY PO 04/19/20 09:00 04/24/20 08:02 Atorvastatin Calcium (Lipitor) 40 mg DAILY PO 04/19/20 09:00 04/24/20 08:03 Bisacodyl (Dulcolax Suppository) 10 mg DAILYPRN PRN [place] CONSTIPATION 04/18/20 18:30 Bisacodyl (Dulcolax Tab) 5 mg DAILY PO 04/19/20 09:00 04/21/20 08:36 Carvedilol (COReg) 25 mg BID PO 04/18/20 21:00 04/24/20 08:01 Dextrose (Dextrose 50%) 25 ml ASDIRECTED PRN IV SEE LABEL COMMENTS 04/18/20 18:30 Docusate Sodium (Colace) 100 mg BID PO 04/18/20 21:00 04/22/20 20:11 EZETIMIBE (Zetia) 10 mg DAILY PO 04/19/20 09:00 04/24/20 08:03 Glucagon (Glucagon) 1 mg ASDIRECTED PRN SC SEE LABEL COMMENTS 04/18/20 18:30 Glucose (Glucose) 16 GM ASDIRECTED PRN PO SEE LABEL COMMENTS 04/18/20 18:30 Insulin Human Lispro (HumaLOG INSULIN) SEE PROTOCOL TABLE AC SC 04/19/20 07:30 04/24/20 08:04 Insulin Human Lispro (HumaLOG INSULIN) SEE PROTOCOL TABLE QHS SC 04/18/20 21:00 Miscellaneous (Unresolved Patient Own Med Order) SEE LABEL COMMENTS DAILY XX 04/19/20 09:00 Ondansetron HCl (Zofran Odt) 4 mg Q6HP PRN PO NAUSEA OR VOMITING 04/18/20 18:30 04/19/20 10:28 Oxycodone HCl (Roxicodone, Oxyir) 2.5 mg 0800,1200,1600 PO 04/19/20 08:00 04/24/20 08:02 Oxycodone HCl (Roxicodone, Oxyir) 2.5 mg ASDIRECTED PO 04/18/20 18:30 04/19/20 08:10 DC Oxycodone HCl (Roxicodone, Oxyir) 2.5 mg QHS PRN PO PAIN >6 04/18/20 18:30 04/18/20 22:19 Pantoprazole Sodium (Protonix) 40 mg DAILY PO 04/19/20 09:00 04/24/20 07:58 Patient Own Medication (Patient'S Own Med) 60MG = 1 TABLET BID PO 04/19/20 21:00 UNV Rivaroxaban (Xarelto) 10 mg DAILY@1800 PO 04/19/20 18:00 04/23/20 17:34 Senna (Senokot) 1 tab QHS PO 04/18/20 21:00 04/22/20 20:11 Sodium Biphosphate/ Sodium Phosphate (Fleet Enema) 1 ea DAILYPRN PRN [place] CONSTIPATION 04/18/20 18:30 Ticagrelor (Brilinta) 45 mg BID PO 04/19/20 09:00 04/24/20 08:02 Ticagrelor (Brilinta) 60 mg BID PO 04/18/20 21:00 04/19/20 10:57 DC 04/18/20 21:11 LUCILA JACOBSON MD Apr 24, 2020 11:47
[2020-04-24 14:00] VITALS: BP 115/59
[2020-04-24] MEDS: LIDOCAINE 5% (LIDODERM) PATCH TD SCH (16:47)
[2020-04-24] MEDS: RIVAROXABAN 10 MG TAB (XARELTO) PO SCH (17:20)
[2020-04-24 20:00] VITALS: BP 119/61
[2020-04-24] MEDS: SENNA 8.6 MG TAB (SENOKOT) PO SCH (20:14)
[2020-04-24] MEDS: **NOTE PATIENT COMMENT** MISC XX SCH (20:14)
[2020-04-25 05:21] VITALS: BP 169/75
[2020-04-25 06:40] LABS: BASO # 0.1 10^3/uL (0.0-0.2); EOS # 0.3 10^3/uL (0.0-0.5); EOS % 3.1 % (0.0-3.0); HEMATOCRIT 29.9 % (36.0-47.0); HEMOGLOBIN 9.1 g/dl (12.0-15.5); LYMPH # 3.2 10^3/uL (1.5-5.0); MEAN CORPUSCULAR HEMOGLOBIN 29.3 pg (27.0-33.0); MEAN CORPUSCULAR HGB CONC 30.4 g/dl (32.0-36.5); MEAN CORPUSCULAR VOLUME 96.1 fl (80.0-96.0); MONO % 9.7 % (2.0-8.0); NEUTROPHILS # 5.5 10^3/uL (1.5-8.5); PLATELET COUNT, AUTOMATED 413 10^3/uL (150-450); RED BLOOD COUNT 3.11 10^6/uL (4.00-5.40); WHITE BLOOD COUNT 10.2 10^3/uL (4.0-10.0)
[2020-04-25] MEDS: HumaLOG INSULIN (NovoLOG) PER UNIT SC SCH ×4 (08:05→20:57)
[2020-04-25] MEDS: EZETIMIBE 10 MG TAB (ZETIA) PO SCH (08:05)
[2020-04-25] MEDS: PANTOPRAZOLE 40MG TAB (PROTONIX) PO SCH (08:05)
[2020-04-25] MEDS: TICAGRELOR 90 MG TABLET (BRILINTA) PO SCH ×2 (08:05→20:32)
[2020-04-25] MEDS: CARVedilol 12.5 MG TAB PO SCH ×2 (08:16→20:33)
[2020-04-25] MEDS: ATORVASTATIN 20 MG TAB PO SCH (08:17)
[2020-04-25] MEDS: oxyCODONE 5MG TAB PO SCH ×3 (08:18→17:01)
[2020-04-25] MEDS: ACETAMINOPHEN 500 MG TAB PO SCH ×3 (08:18→20:32)
[2020-04-25] MEDS: LIDOCAINE 5% (LIDODERM) PATCH TD SCH (08:18)
[2020-04-25] MEDS: DOCUSATE SODIUM 100MG CAPSULE PO SCH ×2 (08:22→20:33)
[2020-04-25] MEDS: BISACODYL 5 MG TAB PO SCH (08:22)
[2020-04-25] MEDS ORDERED: AMLO1TAB25 PO (09:53)
[2020-04-25] MEDS ORDERED: EZET10TA21 PO (09:53)
[2020-04-25] MEDS ORDERED: ATOR40TA75 PO (09:53)
[2020-04-25] MEDS ORDERED: BRIL1TAB PO (09:53)
[2020-04-25] MEDS ORDERED: CARV25TA PO (09:53)
[2020-04-25] MEDS ORDERED: OXYC1TAB PO (09:55)
--- NOTE | 2020-04-25 10:01 | IPNPDOC ---
PM&R Progress Note DATE OF SERVICE: Apr 25, 2020 Criminal Attorney Progress Note Subjective: Patient reporting she feels ready for room privileges and to go home tomorrow. REVIEW OF SYSTEMS: The following is a completed review of systems and has been reviewed. Review of systems otherwise unremarkable. PAIN: Patient self reports +low back pain EYES: No recent vision changes EARS, NOSE, & THROAT: No throat pain, or dysphagia, or rhinorrhea. CARDIOVASCULAR: Denies chest pain or palpitations PULMONARY: Denies shortness of breath GASTROINTESTINAL: +constipation (improving) GENITOURINARY: denies dysuria MUSCULOSKELETAL: generalized weakness, s/p right hip replacement NEUROLOGICAL:denies paresthesias HEMATOLOGICAL: denies easy bruising SKIN: right hip incision PSYCHIATRIC: Unremarkable All other review of systems found to be negative. PHYSICAL EXAMINATION: VITAL SIGNS: Please see below. GENERAL: Pleasant and cooperative. No acute distress. HEENT: PERRL. Extraocular movements intact. Clear conjunctiva. CARDIOVASCULAR: Regular rate and rhythm. No murmurs, rubs, or gallops LUNGS: Clear to auscultation bilaterally. No wheezes. No rhonchi ABDOMEN: Soft, nontender, nondistended. Positive bowel sounds. Normal active bowel sounds NEUROLOGICAL: Alert and oriented times three. Cranial nerves II through XII grossly intact. Sensation grossly intact EXTREMITIES: 5\5 strength bilateral upper extremities. 5\5 strength right lower ankle DF/PF (limited due to surgery) 5/5 strength in left lower extremity. SKIN: right hip incision ASSESSMENT:69-year-old F with past medical history of CKD and CAD with [place] who presents status post right hip THR PLAN: 1. Rehab- PT/OT advance mobility and ADLs, strengthen/stretch/maintain ROM all 4 limbs, hip precautions, room privileges 2. Neuro- hx of CVA, c/u brillinta and statin -will need outpatient vascular f/u for left sided common carotid artery stenosis, will ask vascular to see patient inhouse to expedite possible intervention after ARU d/c 3. CArdia- hx of CAD with [place] on Brilinta and Co-reg -htn c/u amlodipine -HLD c/u statin and Zetia 4.Resp- monitor for infection, incentive spirometry, recent CXR- RUE lung density- f/u PMD 5. ortho- s/p right hip THR hip precations, f/u ortho 6. DM- hx of DM c/u ISS 7. DVT ppx- xarelto 8. Pain- tylenol, low dose oxycodone 9. Renal- CKD with ARB held during ARU stay due to recent NICK, will refer to renal 10. GI ppx-protonix 11. Dispo- 04-26-20 to home, progressing towards goals Allergies Coded Allergies: Penicillins (Verified Allergy, Intermediate, rash, 04/14/20) Vital Signs Vital Signs Date Time Temp Pulse Resp B/P (MAP) Pulse Ox O2 Delivery O2 Flow Rate FiO2 04/25/20 08:48 18 Room Air 04/25/20 08:16 68 146/67 04/25/20 05:21 97.8 93 Laboratory Data CBC/BMP Laboratory Tests 04/25/20 06:20 Labs 24H Laboratory Tests 2 04/24/20 11:33: Bedside Glucose (Misc Panel) 122H 04/24/20 16:41: Bedside Glucose (Misc Panel) 129H 04/24/20 19:42: Bedside Glucose (Misc Panel) 172H 04/25/20 04:46: Bedside Glucose (Misc Panel) 152H 04/25/20 06:20: Immature Granulocyte % (Auto) 1.2, Neutrophils (%) (Auto) 54.0, Lymphocytes (%) (Auto) 31.0, Monocytes (%) (Auto) 9.7H, Eosinophils (%) (Auto) 3.1H, Basophils (%) (Auto) 1.0, Neutrophils # (Auto) 5.5, Lymphocytes # (Auto) 3.2, Monocytes # (Auto) 1.0H, Eosinophils # (Auto) 0.3, Basophils # (Auto) 0.1, Nucleated Red Blood Cells % (auto) 0.2H Current Medications Current Medications Current Medications Medications (Trade) Dose Ordered Sig/Juju Route PRN Reason Start Time Stop Time Status Last Admin Dose Admin Acetaminophen (Tylenol Tab) 1,000 mg TID PO 04/18/20 21:00 04/25/20 08:18 Amlodipine Besylate (Norvasc) 10 mg DAILY PO 04/19/20 09:00 04/25/20 06:36 Atorvastatin Calcium (Lipitor) 40 mg DAILY PO 04/19/20 09:00 04/25/20 08:17 Bisacodyl (Dulcolax Suppository) 10 mg DAILYPRN PRN [place] CONSTIPATION 04/18/20 18:30 Bisacodyl (Dulcolax Tab) 5 mg DAILY PO 04/19/20 09:00 04/21/20 08:36 Carvedilol (COReg) 25 mg BID PO 04/18/20 21:00 04/25/20 08:16 Dextrose (Dextrose 50%) 25 ml ASDIRECTED PRN IV SEE LABEL COMMENTS 04/18/20 18:30 Docusate Sodium (Colace) 100 mg BID PO 04/18/20 21:00 04/22/20 20:11 EZETIMIBE (Zetia) 10 mg DAILY PO 04/19/20 09:00 04/25/20 08:05 Glucagon (Glucagon) 1 mg ASDIRECTED PRN SC SEE LABEL COMMENTS 04/18/20 18:30 Glucose (Glucose) 16 GM ASDIRECTED PRN PO SEE LABEL COMMENTS 04/18/20 18:30 Insulin Human Lispro (HumaLOG INSULIN) SEE PROTOCOL TABLE AC SC 04/19/20 07:30 04/25/20 08:05 Insulin Human Lispro (HumaLOG INSULIN) SEE PROTOCOL TABLE QHS SC 04/18/20 21:00 Lidocaine (Lidoderm Patch) 1 patch DAILY TD 04/24/20 15:00 04/25/20 08:18 Miscellaneous (Unresolved Patient Own Med Order) SEE LABEL COMMENTS DAILY XX 04/19/20 09:00 04/24/20 17:32 DC Non-Formulary Medication ( See Comment Field Below ) REMOVE LIDODERM PATCH DAILY@ XX 04/24/20 21:00 04/24/20 20:14 Ondansetron HCl (Zofran Odt) 4 mg Q6HP PRN PO NAUSEA OR VOMITING 04/18/20 18:30 04/19/20 10:28 Oxycodone HCl (Roxicodone, Oxyir) 2.5 mg 0800,1200,1600 PO 04/19/20 08:00 04/25/20 08:18 Oxycodone HCl (Roxicodone, Oxyir) 2.5 mg ASDIRECTED PO 04/18/20 18:30 04/19/20 08:10 DC Oxycodone HCl (Roxicodone, Oxyir) 2.5 mg QHS PRN PO PAIN >6 04/18/20 18:30 04/18/20 22:19 Pantoprazole Sodium (Protonix) 40 mg DAILY PO 04/19/20 09:00 04/25/20 08:05 Patient Own Medication (Patient'S Own Med) 60MG = 1 TABLET BID PO 04/19/20 21:00 04/24/20 13:16 DC Rivaroxaban (Xarelto) 10 mg DAILY@1800 PO 04/19/20 18:00 04/24/20 17:20 Senna (Senokot) 1 tab QHS PO 04/18/20 21:00 04/22/20 20:11 Sodium Biphosphate/ Sodium Phosphate (Fleet Enema) 1 ea DAILYPRN PRN [place] CONSTIPATION 04/18/20 18:30 Ticagrelor (Brilinta) 45 mg BID PO 04/19/20 09:00 04/25/20 08:05 Ticagrelor (Brilinta) 60 mg BID PO 04/18/20 21:00 04/19/20 10:57 DC 04/18/20 21:11 LUCILA JACOBSON MD Apr 25, 2020 10:01
[2020-04-25 14:00] VITALS: BP 117/56
[2020-04-25] MEDS: RIVAROXABAN 10 MG TAB (XARELTO) PO SCH (17:00)
[2020-04-25] MEDS: SENNA 8.6 MG TAB (SENOKOT) PO SCH (20:33)
[2020-04-25] MEDS: **NOTE PATIENT COMMENT** MISC XX SCH (20:34)
[2020-04-25 22:00] VITALS: BP 148/76
[2020-04-26 06:00] VITALS: BP 142/77
[2020-04-26 06:27] LABS: BASO # 0.1 10^3/uL (0.0-0.2); BASO % 0.6 % (0.0-1.0); EOS # 0.4 10^3/uL (0.0-0.5); EOS % 3.6 % (0.0-3.0); HEMATOCRIT 28.1 % (36.0-47.0); HEMOGLOBIN 8.7 g/dl (12.0-15.5); LYMPH # 2.6 10^3/uL (1.5-5.0); LYMPH % 26.4 % (24.0-44.0); MEAN CORPUSCULAR HEMOGLOBIN 29.6 pg (27.0-33.0); MEAN CORPUSCULAR VOLUME 95.6 fl (80.0-96.0); MONO # 0.9 10^3/uL (0.0-0.8); MONO % 8.8 % (2.0-8.0); NEUTROPHILS # 5.8 10^3/uL (1.5-8.5); NEUTROPHILS % 59.8 % (36.0-66.0); PLATELET COUNT, AUTOMATED 423 10^3/uL (150-450); RED BLOOD COUNT 2.94 10^6/uL (4.00-5.40); WHITE BLOOD COUNT 9.7 10^3/uL (4.0-10.0)
[2020-04-26 06:55] LABS: CALCIUM LEVEL 8.6 MG/DL (8.8-10.2); CREATININE FOR GFR 1.72 MG/DL (0.55-1.30); GLOMERULAR FILTRATION RATE 31.5 (>45); POTASSIUM SERUM 4.9 MEQ/L (3.5-5.1)
[2020-04-26] MEDS: BISACODYL 5 MG TAB PO SCH (09:00)
[2020-04-26] MEDS: DOCUSATE SODIUM 100MG CAPSULE PO SCH (09:00)
[2020-04-26] MEDS: LIDOCAINE 5% (LIDODERM) PATCH TD SCH (09:00)
[2020-04-26] MEDS: HumaLOG INSULIN (NovoLOG) PER UNIT SC SCH ×2 (09:07→12:18)
[2020-04-26] MEDS: PANTOPRAZOLE 40MG TAB (PROTONIX) PO SCH (09:08)
[2020-04-26] MEDS: oxyCODONE 5MG TAB PO SCH ×2 (09:08→12:19)
[2020-04-26] MEDS: ATORVASTATIN 20 MG TAB PO SCH (09:09)
[2020-04-26] MEDS: EZETIMIBE 10 MG TAB (ZETIA) PO SCH (09:09)
[2020-04-26 09:10] VITALS: BP 142/77
[2020-04-26] MEDS: ACETAMINOPHEN 500 MG TAB PO SCH (09:10)
[2020-04-26] MEDS: CARVedilol 12.5 MG TAB PO SCH (09:10)
[2020-04-26] MEDS: TICAGRELOR 90 MG TABLET (BRILINTA) PO SCH (09:11)
[2020-04-26 14:00] VITALS: BP 133/63
== END 2020-04-26 14:45 | disposition home health service (06) | DRG 561 ==
LOC: M PM&R 18:45
PROVIDERS: ADMIT Physical Medicine & Rehabilitation; ATTEND Physical Medicine & Rehabilitation
DX: Z47.1 Aftercare following joint replacement surgery (principal); Z96.641 Presence of right artificial hip joint; I12.9 Hypertensive chronic kidney disease with stage 1 through stage 4 chronic kidney disease, or unspecified chronic kidney disease; N18.9 Chronic kidney disease, unspecified; E11.22 Type 2 diabetes mellitus with diabetic chronic kidney disease; E78.5 Hyperlipidemia, unspecified; I25.10 Atherosclerotic heart disease of native coronary artery without angina pectoris; I25.2 Old myocardial infarction; Z74.09 Other reduced mobility; Z74.1 Need for assistance with personal care; I65.22 Occlusion and stenosis of left carotid artery; Z86.73 Personal history of transient ischemic attack (TIA), and cerebral infarction without residual deficits; Z79.01 Long term (current) use of anticoagulants; Z79.899 Other long term (current) drug therapy; Z88.0 Allergy status to penicillin

== ENCOUNTER → 2020-06-26 | Outpatient (CLI) | payer MEDICARE ==
[~2020-06-26] MED LIST changes: +AMLO1TAB25 PO; +OXYC1TAB PO
[2020-06-26 11:46] LABS: CREATININE FOR GFR 1.56 MG/DL (0.55-1.30); GLOMERULAR FILTRATION RATE 35.2 (>45)
== END ==
LOC: M LAB 10:41
PROVIDERS: ATTEND Surgery Vascular Surgery
DX: I65.22 Occlusion and stenosis of left carotid artery (principal)

== ENCOUNTER → 2020-12-19 | Outpatient (CLI) | payer MEDICARE ==
[2020-12-19 12:10] LABS: BASO # 0.1 10^3/uL (0.0-0.2); BASO % 0.9 % (0.0-1.0); EOS # 0.3 10^3/uL (0.0-0.5); EOS % 3.3 % (0.0-3.0); HEMATOCRIT 38.7 % (36.0-47.0); HEMOGLOBIN 12.6 g/dl (12.0-15.5); LYMPH # 2.2 10^3/uL (1.5-5.0); LYMPH % 25.3 % (24.0-44.0); MEAN CORPUSCULAR HEMOGLOBIN 30.3 pg (27.0-33.0); MEAN CORPUSCULAR HGB CONC 32.6 g/dl (32.0-36.5); MONO # 0.6 10^3/uL (0.0-0.8); MONO % 7.3 % (2.0-8.0); NEUTROPHILS # 5.5 10^3/uL (1.5-8.5); NEUTROPHILS % 62.7 % (36.0-66.0); PLATELET COUNT, AUTOMATED 269 10^3/uL (150-450); RED BLOOD COUNT 4.16 10^6/uL (4.00-5.40); WHITE BLOOD COUNT 8.8 10^3/uL (4.0-10.0)
[2020-12-19 12:42] LABS: CALCIUM LEVEL 8.5 MG/DL (8.8-10.2); CREATININE FOR GFR 1.47 MG/DL (0.55-1.30); GLOMERULAR FILTRATION RATE 37.6 (>45); POTASSIUM SERUM 4.3 MEQ/L (3.5-5.1)
[2020-12-19 12:47] LABS: DRVV SCREEN 35.9 SEC
== END ==
LOC: M LAB 11:15
PROVIDERS: ATTEND Physician Assistant
DX: I25.5 Ischemic cardiomyopathy (principal); I63.9 Cerebral infarction, unspecified